=== PATIENT | female | born 1935 | race Caucasian/White ===

== ENCOUNTER → 2016-05-06 | Outpatient (CLI) | payer OTHER, MEDICARE ==
[~2016-05-06] MED LIST: ACET-1256 PO; ACET-1311 PO; ALBU0.08 INH; ALBU18002 INH; ALBU1AER9 INH; AMOX1TAB43 PO; AMOX875T PO; BISA10SU38 PR; CALC600T37 PO; CANA1TAB PO; CEPH500C2 PO; CHOL2000 PO; CLC100X PO; CLOB-85 TOP; CLOP1TAB15 PO; COEN1CAP7 PO; CPR500 PO; CRS/10 PO; DOCU-94 PO; DOCU100C31 PO; DULO60CA44 PO; DXM/4 PO; FERR325T5 PO; FLUT0.15 NAE; GABA1CAP PO; HMLI SC; HYDR-5688 PO; IMD/2 PO; INSDGIPEN SC; INSU100I SC; INSU100I2 SC; INSUINJ4 SQ; IPRASOL4 INH; LCTX PO; LSN10 PO; LSN5 PO; LYR50 PO; MELATAB2 PO; METO50TA7 PO; MRLP17 PO; MTR500 PO; OMEP20CA9 PO; ONDA8TAB12 PO; OXYC-57 PO; PANC6000 PO; PANT40TA PO; PIOG1TAB23 PO; POLY150C PO; PREG1CAP36 PO; PRT40 PO; PRVC/40 PO; SENN-61 PO; SNG10 PO; SNK PO; SYMIN160 INH; TIOT1AER2 INH; [UNRECOGNIZED DRUG - CODE] PO
[2016-05-06 14:15] LABS: URINE APPEARANCE CLEAR (CLEAR); URINE BILIRUBIN NEG (NEG); URINE COLOR YELLOW; URINE NITRITE NEG (NEG); UROBILINOGEN NEG (NEG)
[2016-05-06 14:34] LABS: MANUAL MICROSCOPIC REQUIRED? NO; REVIEW REQ? NO
== END | disposition home or self-care (01) ==
LOC: C.LABSPEC 12:44
PROVIDERS: ATTEND Obstetrics & Gynecology
DX: R39.89 Other symptoms and signs involving the genitourinary system (principal)

== ENCOUNTER → 2016-06-02 | Outpatient (CLI) | payer OTHER, MEDICARE ==
[~2016-06-02] MED LIST changes: +OPTIRAY 320 IV PRN
--- NOTE | 2016-06-02 12:35 | DIAGNOSTIC IMAGING REPORT ---
Abdominal CT angiogram ANGIO ABDOMEN COMBO CLINICAL HISTORY: Mesenteric arterial stenosis TECHNIQUE: Transaxial acquisition with multi axial reformatted images COMPARISON STUDY: 09/27/2015 FINDINGS: Lung bases remain clear. Considerable atherosclerotic change abdominal aorta with no evidence for aneurysm or significant stenotic change. Extensive postoperative changes involving the spine stable area kidneys enhance uniformly. Air within the biliary ductal system presumably postoperative. 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 There appears to be partial collateral reconstitution several centimeters from its origin with this appearance unchanged from the prior study. Collateral vasculature primarily in a perigastric distribution appear unchanged. The stents involving the origins. Mesenteric artery is again noted. It appears to be patent. There is a mild degree of post stent narrowing of this is not considered critical. Moderate atelectatic changes of the distal branches is present similar to the prior study. Bowel pattern remains nonobstructive. Splenic artery aneurysm thrombosis also unchanged. No significant or bulky adenopathy is appreciated. IMPRESSION: Stable CT of the abdomen. 2. 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 This is unchanged. 3. Proximal stent superior mesenteric artery is considered patent with a mild degree of post stent narrowing. This is similar as well 4. All remaining components of the study are unchanged with no significant new or interval finding. Electronically signed by: Lakhwinder Strange M.D. 06/02/2016 12:33 PM Dictated Date/Time: 06/02/2016 12:24 PM
== END | disposition home or self-care (01) ==
LOC: C.CTS 10:48
PROVIDERS: ATTEND Surgery Vascular Surgery
DX: I77.1 Stricture of artery (principal)

== ENCOUNTER → 2016-06-21 | Outpatient (CLI) | payer OTHER, MEDICARE ==
[~2016-06-21] MED LIST changes: -OPTIRAY 320 IV PRN
[2016-06-21 10:04] LABS: HEMATOCRIT 42.3 % (37-47); MEAN CORPUSCULAR HGB CONC 32.2 g/dl (32-36); MEAN PLATELET VOLUME 11.1 fL (7.4-10.4); PLATELET COUNT 272 K/uL (130-400); RED BLOOD COUNT 4.86 M/uL (4.2-5.4); WHITE BLOOD COUNT 8.94 K/uL (4.8-10.8)
[2016-06-21 11:57] LABS: ESTIMATED AVERAGE GLUCOSE 171 mg/dl; HA1C FLAG Normal (Normal)
[2016-06-21 11:58] LABS: RATIO 8.4 mcg/mg (0-30.0)
[2016-06-21 12:01] LABS: ALT/SGPT 39 U/L (12-78); BLOOD UREA NITROGEN 18 mg/dl (7-18); CALCIUM 9.8 mg/dl (8.5-10.1); CARBON DIOXIDE 28 mmol/L (21-32); CHLORIDE 102 mmol/L (98-107); CHOLESTEROL 232 mg/dl (0-200); CREATININE 0.91 mg/dl (0.60-1.20); GLUCOSE 107 mg/dl (70-99); POTASSIUM 4.6 mmol/L (3.5-5.1); SODIUM 135 mmol/L (136-145); TRIGLYCERIDES 225 mg/dl (0-150); VERY LOW DENSITY LIPOPROT CALC 45 mg/dl
[2016-06-21 12:10] LABS: ALB/GLOB RATIO 0.8 (0.9-2); ALKALINE PHOSPHATASE 103 U/L (45-117); AST/SGOT 27 U/L (15-37); CHOLESTEROL/HDL RATIO 5.2; HDL CHOLESTEROL 45 mg/dl; LDL CHOLESTEROL CALCULATED 142 mg/dl
== END | disposition home or self-care (01) ==
LOC: C.LABFOXMH 09:17
PROVIDERS: ATTEND Internal Medicine Endocrinology, Diabetes & Metabolism
DX: D50.9 Iron deficiency anemia, unspecified (principal); E11.9 Type 2 diabetes mellitus without complications

== ENCOUNTER → 2016-07-16 | Outpatient (CLI) | payer OTHER, MEDICARE ==
--- NOTE | 2016-07-16 16:28 | MAMMOGRAPHY REPORT ---
BILATERAL DIGITAL DIAGNOSTIC MAMMOGRAM TOMOSYNTHESIS WITH CAD AND TARGETED LEFT ULTRASOUND: 7 CLINICAL HISTORY: The patient reports a palpable left breast lump. She also reports intermittent ri ght breast pain. She reports that her sister from breast cancer. TECHNIQUE: Breast tomosynthesis in addition to standard 2D mammography was performed. Current study was also evaluated with a Computer Aided Detection (CAD) system. Bilateral CC and MLO 2-D and feliz synthesis images and spot magnification left CC and ML views were obtained. COMPARISON: Comparison is made to exam dated: 08/16/2013 mammogram - [facility]. BREAST COMPOSITION: There are scattered areas of fibroglandular density in both breasts. FINDINGS: A triangle marker carbone the site of the palpable lump in the left breast upper outer quad rant. At the site of the palpable lump there is an irregular mass which measures 2.3 x 1.9 cm. A f ew faint pleomorphic calcifications are seen within the mass. The remainder of both breasts demonstr ate no suspicious masses, calcifications, or areas of architectural distortion. Targeted ultrasound was performed of the area of the palpable lump pointed out by the patient, in th e left breast at 1:00, 4 cm from the nipple. At the site of the palpable lump there is an irregular hypoechoic mass which measures 1.9 x 1.8 x 2.0 cm. A few punctate echogenic foci are seen within t he mass, consistent with the calcifications seen mammographically. Internal vascularity is evident. The mass is suspicious for malignancy and ultrasound-guided core needle biopsy is recommended for further evaluation. Targeted ultrasound was performed of the left axilla, which shows morphologically normal left axilla ry lymph nodes. There is no evidence of left axillary adenopathy. Targeted ultrasound was performed of the area of intermittent right breast pain pointed out by the p atient, in the right breast at 9:00, centered at approximately 8 cm from the nipple. No suspicious masses or other suspicious sonographic abnormalities are evident. IMPRESSION: ACR BI-RADS CATEGORY 5: HIGHLY SUGGESTIVE OF MALIGNANCY, TARGETED ULTRASOUND ACR BI-RAD S CATEGORY 5: HIGHLY SUGGESTIVE OF MALIGNANCY 1. Irregular 2 cm solid mass in the left breast at 1:00 at the site of the palpable lump. The mass is highly suspicious and ultrasound-guided core needle biopsy is recommended for further evaluation . 2. No evidence of left axillary adenopathy. 3. No mammographic evidence of malignancy in the right breast. No suspicious mammographic or sonog raphic abnormality at the site of intermittent right breast pain. Recommend clinical follow-up. A phone call was made to the physician's office to confirm faxed results were received. The patient has been verbally notified of the results. The patient tentatively scheduled the biopsy before omayra ving the department. I told the patient that she can remain on Plavix for the biopsy, given the his tory of an SMA stent. Approximately 10% of breast cancers are not detected with mammography. A negative mammographic repor t should not delay biopsy if a clinically suggestive mass is present. Yudy Marshall M.D. ah/:07/16/2016 14:46:02 Blood Tester Fowl: Xin STEELE(Carl)(M), [facility] letter sent: Abnormal 4/5 BI-RADS Code: ACR BI-RADS Category 5: Highly Suggestive Of Malignancy Ultrasound BI-RADS: ACR BI-RA DS Category 5: Highly Suggestive Of Malignancy
== END | disposition home or self-care (01) ==
LOC: C.MAMM 13:42
PROVIDERS: ATTEND Nurse Practitioner Family
DX: N63 Unspecified lump in breast (principal); Z80.3 Family history of malignant neoplasm of breast

== ENCOUNTER → 2016-07-27 | Outpatient (CLI) | payer OTHER, MEDICARE ==
--- NOTE | 2016-07-27 11:07 | Discharge Instructions ---
Discharge Instructions Procedure Procedure Date: Jul 27, 2016. Reason for visit: Left Mass. Discharge Discharge Date: Jul 27, 2016. Discharge Diagnosis: post left breast ultrasound guided core biopsy Medications Restart Stopped Medication(s): May take Plavix later today Instructions Activity Recommendations: Additional Limitations (see below) Return to School/Work: no limitations Recommended Home Diet: No Limitations Provider Instructions: ACTIVITY RECOMMENDATIONS: * No lifting, pushing, pulling or exercising the affected side for three days. RETURN TO SCHOOL/WORK: * You may return to work/school after the procedure, but do not perform any strenuous activities for 24 to 48 hours. MEDICATIONS: * Tylenol (two 325 mg) every four to six hours if needed for mild pain (if not allergic to Tylenol). DIET: * Resume previous diet. SPECIAL CARE INSTRUCTIONS: * Keep biopsy site dry for 24 hours. May shower after 24 hours, but do not soak (bathe) incision. * May remove Tegaderm (plastic patch) tomorrow AFTER showering. * Leave the steri-strips on for one week. Allow the steri-strips to fall off by themselves. If not off after one week, you may remove them. You may place a Bandaid crosswise over the strips, if desired. * Apply ice 10 minutes on and 10 minutes off as needed. * Wear a bra at bedtime to sleep more comfortably for 2-3 days. * Your referring physician should have the results after approximately 5 to 7 business days. * Call for unusual bleeding, fever, drainage, etc or if you have any questions call [phone] during normal business hours or after hours call Dr Hay, . FOLLOW UP VISIT: Follow-up with Referring Physician as scheduled. Allergies Coded Allergies: Prochlorperazine (Verified Allergy, Severe, TONGUE SWELLS/"ALMOST ", ) Aspirin (Verified Allergy, Unknown, 11/10/15) NSAIDs (Verified Allergy, Unknown, TAKES ARTHROTEC AT HOME, 11/10/15) NUTS (Verified Allergy, Unknown, 11/10/15) Erythromycin (Verified Adverse Reaction, Intermediate, HIVES, 11/10/15) ABD PAIN/CRAMPS DIZZINESS Tramadol (Verified Adverse Reaction, Unknown, abd pain, 11/10/15) Teresa Betancourt Recommendations: Call your doctor if: * Temperature above 101 degrees * Pain not relieved by pain medicine ordered * There is increased drainage or redness from any incision * You have any unanswered questions or concerns. Your Doctors Instructions noted above were prepared by provider Matye Hay. Patient Signature Section: Patient Instructions Signature Page Ghulam Victoria Patient (or Guardian) Signature/Date: I have read and understand the instructions given to me by my caregivers. Caregiver/RN/Doctor Signature/Date: The above-named patient and/or guardian has received patient instructions on this date. + Original Patient Signature Page (only) stays with chart. Please make copy for patient.
--- NOTE | 2016-07-27 15:43 | MAMMOGRAPHY REPORT ---
UNILATERAL LEFT DIGITAL DIAGNOSTIC MAMMOGRAM TOMOSYNTHESIS: 07/27/2016 CLINICAL HISTORY: Status post ultrasound-guided core biopsy of a solid palpable mass in the 1:00 lef t breast. Please refer to the report from left breast ultrasound guided core biopsy performed at the same time for full detail. IMPRESSION: POST PROCEDURE IMAGING FOR MARKER PLACEMENT Please refer to the report from left breast ultrasound guided core biopsy performed at the same time for full detail. Approximately 10% of breast cancers are not detected with mammography. A negative mammographic repor t should not delay biopsy if a clinically suggestive mass is present. Mayte Hay M.D. ay/:07/27/2016 12:32:39 Java Technical Architect: Breana WETZEL)(Percy), [facility] BI-RADS Code: Post Procedure Imaging For Marker Placement
--- NOTE | 2016-07-27 15:43 | MAMMOGRAPHY REPORT ---
ULTRASOUND GUIDED BIOPSY LEFT BREAST: 07/27/2016 CLINICAL HISTORY: 80-year-old woman with a new palpable solid 2 cm mass in the 1:00 left breast pres ents for ultrasound-guided core needle biopsy for definitive characterization. COMPARISON: Comparison is made to exams dated: 07/16/2016 ultrasound, 07/16/2016 mammogram, and 2013 mammogram - [facility]. PATIENT CONSENT: The procedure, risks and benefits were discussed with the patient and informed writ ten consent was obtained. Specific risks to this procedure include: bleeding, infection, puncture of adjacent structure, nontarget biopsy, sampling error and medication reaction. PROCEDURE DESCRIPTION: A time out was performed and the left breast was agreed as the site of biopsy . The skin was prepped and draped in the usual sterile fashion. The solid angular 2 cm mass in the 1 :00 left breast was chosen as the target for biopsy. Subcutaneous and intraparenchymal 1% buffered l idocaine was administered as local anesthesia. A skin incision was made. Through the incision, 3 sa mples were taken with a 14 gauge Achieve biopsy device. A metallic marker was placed at the biopsy s ite. Hemostasis was achieved after manual compression. The patient tolerated the procedure well and there was no immediate complication. The samples were sent to the pathology department in an approp riately labeled container. Postprocedure left CC and ML tomosynthesis images were obtained. A new ribbon-shaped metallic biops y marker is seen within the biopsied mass in the 1:00 middle one third of the left breast. No signi ficant post biopsy hematoma is identified. IMPRESSION: ULTRASOUND GUIDED BIOPSY Status post ultrasound-guided core needle biopsy of an indeterminate solid palpable mass in the 1:00 left breast, with biopsy marker placed at the site. The patient will receive notification of the biopsy results from her referring physician. Mayte Hay M.D. ay/:07/27/2016 12:37:41 Environmental Services Aide: Breana WETZEL)(Percy), [facility]
== END ==
LOC: C.MAMM 09:55
PROVIDERS: ATTEND Internal Medicine
DX: N63 Unspecified lump in breast (principal); C50.912 Malignant neoplasm of unspecified site of left female breast

== ENCOUNTER → 2016-08-13 | Outpatient (CLI) | payer OTHER, MEDICARE ==
[~2016-08-13] MED LIST changes: -ALBU0.08 INH; -PRVC/40 PO
== END | disposition home or self-care (01) ==
LOC: C.LABFOXMH 09:04
PROVIDERS: ATTEND Internal Medicine
DX: E87.5 Hyperkalemia (principal)

== ENCOUNTER 2016-08-16 07:56 | Observation (INO) | payer OTHER, MEDICARE ==
[2016-08-11 09:12] VITALS: Ht 157.5 cm; Wt 77.7 kg
--- NOTE | 2016-08-11 10:07 | PAT Medication Instructions ---
Service Date Aug 11, 2016. Current Home Medication List Acetaminophen (Tylenol), 1,000 MG PO AMPM Albuterol (Proair Hfa), 2 PUFF INH QID PRN for Wheezing Albuterol Soln (Proventil 0.083% 2.5MG/3ML), 2.5 MG INH QID Budesonide/Formoterol Fumarate (Symbicort 160/4.5 Inhaler ), 2 PUFFS INH BID PRN for COPD Calcium (Calcium), 1 TAB PO BID Canagliflozin (Invokana), 100 MG PO QAM Clopidogrel (Plavix), 75 MG PO DAILY Coenzyme Q10 (Ubidecarenone) (Coq10), 200 MG PO DAILY Duloxetine Hcl (Cymbalta), 60 MG PO QAM Fluticasone Propionate (Nasal) (Flonase Allergy Relief), 2 SPRAYS CÉSAR DAILY Gabapentin (Neurontin), 100 MG PO BID Insulin Glargine (Lantus Solostar Pen), 40 UNIT SQ AMPM Insulin Lispro (Humalog), 10 UNITS SC TIDM Levothyroxine Sodium (Levo-T), 50 MCG PO QAM Lisinopril (Lisinopril), 10 MG PO DAILY Melatonin (Melatonin Maximum Strengt), 5 MG PO HS Metoprolol Succ (Toprol Xl) (Toprol-Xl), 50 MG PO QAM Montelukast Sod (Montelukast Sodium), 10 MG PO DAILY Omeprazole (Prilosec), 50 MG PO BID Pioglitazone Hcl (Pioglitazone Hcl), 30 MG PO QAM Pregabalin (Lyrica), 50 MG PO BID Rosuvastatin Calcium (Crestor), 1 TAB PO QPM Senna (Senokot), 1-2 TAB PO DAILY Medication Instructions For Your Scheduled Surgery Clopidogrel (Plavix), 75 MG PO DAILY (hold one week prior to surgery per surgeon instructions) - Hold the following medications starting today 08/11/16: Coenzyme Q10 (Ubidecarenone) (Coq10), 200 MG PO DAILY - Hold the following medications the morning of surgery: Senna (Senokot), 1-2 TAB PO DAILY Pioglitazone Hcl (Pioglitazone Hcl), 30 MG PO QAM Lisinopril (Lisinopril), 10 MG PO DAILY Insulin Lispro (Humalog), 10 UNITS SC TID Canagliflozin (Invokana), 100 MG PO QAM Calcium (Calcium), 1 TAB PO BID - Take the following medications the morning of surgery with a sip of water: Pregabalin (Lyrica), 50 MG PO BID Omeprazole (Prilosec), 50 MG PO BID Montelukast Sod (Montelukast Sodium), 10 MG PO DAILY Metoprolol Succ (Toprol Xl) (Toprol-Xl), 50 MG PO QAM Levothyroxine Sodium (Levo-T), 50 MCG PO QAM Gabapentin (Neurontin), 100 MG PO BID Fluticasone Propionate (Nasal) (Flonase Allergy Relief), 2 SPRAYS CÉSAR DAILY Duloxetine Hcl (Cymbalta), 60 MG PO QAM Budesonide/Formoterol Fumarate (Symbicort 160/4.5 Inhaler ), 2 PUFFS INH BID PRN for COPD Albuterol (Proair Hfa), 2 PUFF INH QID PRN for Wheezing (bring with you to hospital on day of surgery) Albuterol Soln (Proventil 0.083% 2.5MG/3ML), 2.5 MG INH QID Acetaminophen (Tylenol), 1,000 MG PO AMPM - Take the following medications as scheduled the night before surgery: Rosuvastatin Calcium (Crestor), 1 TAB PO QPM Pregabalin (Lyrica), 50 MG PO BID Omeprazole (Prilosec), 50 MG PO BID Melatonin (Melatonin Maximum Strengt), 5 MG PO HS Insulin Lispro (Humalog), 10 UNITS SC TIDM Gabapentin (Neurontin), 100 MG PO BID Calcium (Calcium), 1 TAB PO BID Budesonide/Formoterol Fumarate (Symbicort 160/4.5 Inhaler ), 2 PUFFS INH BID PRN for COPD Albuterol (Proair Hfa), 2 PUFF INH QID PRN for Wheezing Albuterol Soln (Proventil 0.083% 2.5MG/3ML), 2.5 MG INH QID Acetaminophen (Tylenol), 1,000 MG PO AMPM Insulin Glargine (Lantus Solostar Pen), 40 UNIT SQ AMPM - For Insulin Dependent Diabetic patients: Test blood sugar A.M. of surgery. - If blood sugar is greater than 150, take half of your Lantus dose (20 units) - If blood sugar is less than 150, do not take any: Lantus If you have any questions please call us at [phone] or [phone] ( Leela) or [phone]
[2016-08-11 11:17] LABS: BUN/CREATININE RATIO 22.4 (10-20); CALCIUM 9.7 mg/dl (8.5-10.1); CREATININE 1.1 mg/dl (0.60-1.20); POTASSIUM 5.7 mmol/L (3.5-5.1)
--- NOTE | 2016-08-12 13:44 | DIAGNOSTIC IMAGING REPORT ---
CHEST 2 VIEWS ROUTINE CLINICAL HISTORY: Preoperative chest COMPARISON STUDY: 03/03/2016 FINDINGS: The cardiac and mediastinal contours are normal. There is no evidence of focal pulmonary consolidation. There is no evidence of failure. No pleural effusions are visualized.[ There is a prominent right cardiophrenic angle fat pad. There are postsurgical changes of thoracolumbar spinal fusion IMPRESSION: No active disease in the chest. Electronically signed by: Jeb Dominguez M.D. 08/12/2016 1:42 PM Dictated Date/Time: 08/12/2016 1:41 PM
[2016-08-12 13:56] LABS: CALCIUM 9.8 mg/dl (8.5-10.1)
[2016-08-12 13:59] LABS: CREATININE 1.1 mg/dl (0.60-1.20); POTASSIUM 5.7 mmol/L (3.5-5.1)
[2016-08-12 14:16] LABS: BASO % 0.3 %; BASO ABS # 0.02 K/uL (0-0.2); COMPLETE YES; EOS % 2.3 %; HEMATOCRIT 41.7 % (37-47); IG% 0.4 %; LYMPH ABS # 2.21 K/uL (1.2-3.4); MEAN CELL VOLUME 93.3 fL (80-100); MEAN CORPUSCULAR HEMOGLOBIN 29.1 pg (25-34); MEAN CORPUSCULAR HGB CONC 31.2 g/dl (32-36); MEAN PLATELET VOLUME 10.6 fL (7.4-10.4); MONO % 7.3 %; NEUT % 61.7 %; PLATELET COUNT 330 K/uL (130-400); RED BLOOD COUNT 4.47 M/uL (4.2-5.4)
[~2016-08-16] VITALS: Ht 157.5 cm; Wt 77.7 kg
[~2016-08-16 07:56] MED LIST changes: -ACET-1311 PO; -ALBU18002 INH; -AMOX1TAB43 PO; -AMOX875T PO; -BISA10SU38 PR; +CEFAZOLIN 2000 MG/60 ML D5W IV SCH; -CEPH500C2 PO; -CLC100X PO; -CPR500 PO; -DOCU-94 PO; -DOCU100C31 PO; -DXM/4 PO; -FERR325T5 PO; -HYDR-5688 PO; -IMD/2 PO; -INSDGIPEN SC; -INSU100I SC; -INSU100I2 SC; +LACTATED RINGER'S 1000ML 1,000 ML IV SCH; -LCTX PO; -LSN10 PO; -MRLP17 PO; -MTR500 PO; -OMEP20CA9 PO; -ONDA8TAB12 PO; -OXYC-57 PO; -PANC6000 PO; -PANT40TA PO; -POLY150C PO; -PREG1CAP36 PO; -PRT40 PO; -SNK PO; -SYMIN160 INH; -TIOT1AER2 INH
[2016-08-16] MEDS ORDERED: THROMBIN FOR SOLN 20000 UNIT KIT ONE (08:36)
[2016-08-16] MEDS ORDERED: LIDOCAINE HCL 1% 20 ML VIAL ONE (08:36)
[2016-08-16] MEDS ORDERED: BUPIVACAINE 0.5 % 5 MG/1 ML MPF 30ML VIAL ONE (08:36)
[2016-08-16] MEDS ORDERED: ISOSULFAN BLUE 10 MG/ML VIAL 5 ML ONE (08:36)
[2016-08-16] MEDS ORDERED: CEFAZOLIN SOD 1 GM VIAL ONE (08:37)
[2016-08-16] MEDS ORDERED: HEPARIN SOD (PORCINE) 1000 UNIT/ML 10 ML VIAL ONE (08:37)
[2016-08-16] MEDS ORDERED: MIDAZOLAM HCL 1 MG/ML 2ML VIAL ONE (09:24)
[2016-08-16] MEDS ORDERED: PROPOFOL IV EMULSION 10 MG/ML 20 ML VIAL IV ONE (09:24)
[2016-08-16] MEDS ORDERED: LIDOCAINE HCL 2% 2 ML VIAL (20MG/ML) ONE (09:24)
[2016-08-16] MEDS ORDERED: FENTANYL CITRATE INJ 50 MCG/1 ML 2 ML VIAL ONE ×3 (09:25→12:34)
--- NOTE | 2016-08-16 09:53 | History & Physical Bridge Note ---
H&P Re-Evaluation Bridge Note: I have examined the patient, reviewed the History & Physical and in the interval since the performance of the History & Physical I have noted the following changes of clinical significance: No changes noted
--- NOTE | 2016-08-16 10:02 | DIAGNOSTIC IMAGING REPORT ---
LEFT BREAST LYMPHOSCINTIGRAPHY CLINICAL HISTORY: Left breast cancer. COMPARISON STUDY: Diagnostic mammogram August 16, 2016. PROCEDURE: The procedure, risks and benefits were discussed with the patient and informed consent was obtained. The procedure was performed by Dr. Ferrer following a timeout. Skin of the left breast was prepped. A total of 0.525 mCi of Lymphoseek was injected in 5 intradermal aliquots within a left periareolar distribution. No imaging was requested at this time. The patient tolerated the procedure well. IMPRESSION: Left breast lymphoscintigraphy. Electronically signed by: Chris Ferrer M.D. 08/16/2016 9:59 AM Dictated Date/Time: 08/16/2016 9:57 AM
[2016-08-16] MEDS ORDERED: PREG1CAP36 PO (10:09)
[2016-08-16] MEDS ORDERED: ONDANSETRON INJ 2 MG/ML 2 ML VIAL ONE (10:51)
[2016-08-16] MEDS ORDERED: ETOMIDATE 2 MG/ML 20 ML VIAL IV ONE (11:17)
[2016-08-16] MEDS ORDERED: METHYLENE BLUE 0.5% 10 ML VIAL ONE (11:18)
--- NOTE | 2016-08-16 12:24 | [facility] Post Operative Brief Note ---
Immediate Operative Summary Operative Date Aug 16, 2016. Pre-Operative Diagnosis Left Breast Cancer; Need for Long-term Intravenous Access Post-Operative Diagnosis Left Breast Cancer; Need for Long-term Intravenous Access Procedure(s) Performed Procedure #1--Left Breast Lumpectomy with Needle Localization and Left [place] Lymph Node Biopsy Procedure #2-- Insertion of Infusaport Right Cephalic Surgeon Dr. Arambula Oracle Software Engineer Surgeon(s) ROSA Galo Estimated Blood Loss 20 ml Findings SLN negative placed port via Rt cephalic vein Specimens Frozen Section #1--[place] lymph node #1 Left Breast--sent to pathology at 1104 A. Left Breast Lumpectomy (needle=lateral, skin=anterior, short silk=medial, double silk=superior) B. Additional Superior Tissue Left Breast (methylene blue=new margin, long silk=lateral, short silk=medial) C. Additional Inferior Tissue Left Breast (methylene blue= new margin, long silk=lateral, short silk= medial) all specimens A-C sent fresh to lab at 1130 Drains none Anesthesia gen Complication(s) None Disposition Recovery Room / PACU
[2016-08-16] MEDS ORDERED: NALOXONE HCL 0.4 MG/1 ML VIAL/CARP IV PRN (12:30)
[2016-08-16] MEDS ORDERED: ALBUTEROL HFA 8 GM INHALER INH PRN (12:30)
[2016-08-16] MEDS ORDERED: MoRPHine SULFATE 4 MG/ML 1 ML CARP\\VIAL IV PRN (12:30)
[2016-08-16] MEDS ORDERED: ONDANSETRON INJ 2 MG/ML 2 ML VIAL IV PRN ×2 (12:30)
[2016-08-16] MEDS ORDERED: FENTANYL CITRATE INJ 50 MCG/1 ML 2 ML VIAL IV PRN (12:30)
[2016-08-16] MEDS ORDERED: HYDROCODONE/ACETAMOPHEN 5/325MG TAB PO PRN (12:30)
[2016-08-16] MEDS ORDERED: ATROPINE SULFATE 0.1 MG/ML 5ML SYR IV PRN (12:30)
[2016-08-16] MEDS ORDERED: LABETALOL HCL IV 5 MG/ML 20ML IV PRN (12:30)
[2016-08-16] MEDS ORDERED: EpHEDrine SULFATE INJ 50 MG/ML AMP IV PRN (12:30)
[2016-08-16] MEDS ORDERED: BUDESONIDE/FORMOTEROL FUMARATE 160/4.5 60 PUFFS/INHALER INH PRN (12:30)
[2016-08-16] MEDS ORDERED: IV FLUIDS COMPLETED PRN (12:45)
[2016-08-16] MEDS ORDERED: HYDR-5688 PO (12:53)
[2016-08-16] MEDS ORDERED: CEPH500C2 PO (12:53)
--- NOTE | 2016-08-16 12:55 | Discharge Instructions ---
Discharge Instructions Date of Service Aug 16, 2016. Admission Reason for Admission: Lt Br Ca,Type 2 Diabetes Mellitus/Hs Loc W/Lymph Discharge Discharge Diagnosis / Problem: Lt breast cancer Discharge Goals Goal(s): Decrease discomfort, Improve function, Improve disease control Activity Recommendations Activity Limitations: as noted below Lifting Limitations: no more than 10 pounds Exercise/Sports Limitations: until after follow-up appointment May Resume Sexual Activity: when tolerated Shower/Bathe: tomorrow Driving or Machine Use: may drive in 1 week SPECIAL CARE INSTRUCTIONS: * Cover incisions and change daily for comfort/drainage. * Leave steri strips in place * May use ibuprofen for pain as tolerated. * Expect some swelling and bruising. Call your doctor if: * Temperature above 101 degrees * Pain not relieved by pain medicine ordered * There is increased drainage or redness from any incision * You have any unanswered questions or concerns [phone]. FOLLOW UP VISIT: If not already scheduled, please call the office for a follow-up visit. for next week- some suture removal OFFICE PHONE NUMBER: Dr. Arambula Office . Current Hospital Diet Patient's current hospital diet: Diabetes Type 2 Diet Discharge Diet Recommended Diet: Diabetes Type 2 Diet Procedures Procedures Performed: Procedure #1--Left Breast Lumpectomy with Needle Localization and Left [place] Lymph Node Biopsy Procedure #2-- Insertion of Infusaport Right Cephalic Pending Studies Studies pending at discharge: no Laboratory Results Hemoglobin A1c Test 06/21/16 06:04 Range/Units Estimated Average Glucose 171 mg/dl Hemoglobin A1c 7.6 H 4.5-5.6 % Lipid Panel Test 06/21/16 06:04 Range/Units Triglycerides Level 225 H 0-150 mg/dl Cholesterol Level 232 H 0-200 mg/dl HDL Cholesterol 45 mg/dl Cholesterol/HDL Ratio 5.2 LDL Cholesterol, Calculated 142 mg/dl Medical Emergencies . Who to Call and When: Medical Emergencies: If at any time you feel your situation is an emergency, please call 911 immediately. . Non-Emergent Contact Non-Emergency issues call your: Primary Care Provider, Surgeon . "Provider Documentation" section prepared by Hal Arambula. . VTE Core Measure Inpt VTE Proph given/why not?: SCD's
[2016-08-16] MEDS ORDERED: HYDROmorphone INJ 1 MG/ML SYR ONE (13:01)
[2016-08-16] MEDS ORDERED: HYDROmorphone INJ 1 MG/ML SYR IV PRN (13:15)
--- NOTE | 2016-08-16 13:17 | MAMMOGRAPHY REPORT ---
NEEDLE LOCALIZATION LEFT BREAST: 08/16/2016 CLINICAL HISTORY: Recently biopsy-proven left breast cancer. Patient presents for preoperative need le and wire localization prior to surgical excision. COMPARISON: Comparison is made to exams dated: 07/16/2016 ultrasound, 07/27/2016 mammogram, 07/16/2016 mammogram, and 08/16/2013 mammogram - [facility]. PATIENT CONSENT: The risks of the procedure were explained to the patient and informed consent was o btained. The patient denied eating or drinking anything this morning that would preclude anesthesia . She denied allergy to lidocaine. Previous ultrasound guided core needle biopsy images dated 07/27/2016, and postprocedure mammograms were reviewed. The left 1:00 breast mass with internal ribbon-shaped biopsy marker is the intended target for preoperative localization. Repeat targeted ultrasound was performed in the 1:00 left helga ast, and the lobulated and angular hypoechoic solid mass with internal biopsy marker is again identi fied. This is amenable to ultrasound-guided preoperative localization. The skin of the left breast was cleansed with Betadine. 1% buffered lidocaine without epinephrine was administered as local an esthesia. A 5 cm Espinosa II needle and wire combination was inserted through the mass using ultraso und guidance. The wire was locked in place with the hub of the needle at the level of the biopsy ma rker clip. Post localization 2-D mammograms were obtained, which demonstrate the localizing needle and wire tra versing the mammographic mass in question, adjacent to the biopsy marker clip. The patient tolerate d the procedure well and there was no immediate complication. She was sent to the operating room in satisfactory condition. The procedure including: needle length and approach were discussed with e operating surgeon prior to surgery. The specimen radiograph demonstrates the localizing needle and wire, and the mass with internal ribb on shaped metallic biopsy marker clip. These findings are compatible with successful preoperative l ocalization and subsequent surgical excision. IMPRESSION: NEEDLE LOCALIZATION Status post successful ultrasound-guided preoperative needle and wire localization of biopsy-proven cancer in the 1:00 left breast. The imaged specimen includes the intended abnormalities. The patient will receive notification of the final pathology results from her referring physician. Mayte Hay M.D. ay/:08/16/2016 11:27:26 High Heel Builder: Abhishek WETZEL)(Percy), [facility]
--- NOTE | 2016-08-16 13:18 | MAMMOGRAPHY REPORT ---
UNILATERAL LEFT DIGITAL DIAGNOSTIC MAMMOGRAM: 08/16/2016 CLINICAL HISTORY: Status post ultrasound-guided needle and wire localization in the 1:00 left breast . Please refer to the report from the left breast ultrasound-guided localization performed at the same time for full detail. IMPRESSION: Please refer to the report from the left breast ultrasound-guided localization performed at the same time for full detail. Approximately 10% of breast cancers are not detected with mammography. A negative mammographic repor t should not delay biopsy if a clinically suggestive mass is present. Mayte Hay M.D. ay/:08/16/2016 11:28:17 Radioisotope Technician: Abhishek STEELE(R)(M), [facility] BI-RADS Code: n/a
--- NOTE | 2016-08-16 13:26 | Anesthesiology Progress Note ---
Anesthesia Post Op Note Date & Time Aug 16, 2016 at 13:25 Vital Signs Pain Intensity: 5.0 Vital Signs Past 12 Hours Date Time Temp Pulse Resp B/P Pulse Ox O2 Delivery O2 Flow Rate FiO2 08/16/16 13:10 87 16 112/53 96 Nasal Cannula 3 08/16/16 13:00 85 16 124/55 96 Nasal Cannula 3 08/16/16 12:50 84 16 143/52 94 Nasal Cannula 3 08/16/16 12:40 84 16 148/62 97 Mask 10 08/16/16 12:30 83 16 171/61 98 Mask 10 08/16/16 12:20 36.2 80 16 179/97 98 Mask 10 Notes Mental Status: alert / awake / arousable, participated in evaluation Pt Amnestic to Procedure: Yes Nausea / Vomiting: adequately controlled Pain: adequately controlled Airway Patency, RR, SpO2: stable & adequate BP & HR: stable & adequate Hydration State: stable & adequate Anesthetic Complications: no major complications apparent
--- NOTE | 2016-08-16 13:42 | DIAGNOSTIC IMAGING REPORT ---
CHEST ONE VIEW PORTABLE CLINICAL HISTORY: Port placement. COMPARISON STUDY: Chest radiograph August 12, 2016. FINDINGS: There has been interval placement of right subclavian [id number]. Catheter tip projects over the distal SVC. There is no pneumothorax. Spinous hardware is partially imaged. Cardiac size is normal. There is no evidence of pulmonary edema. No consolidation is present. IMPRESSION: No pneumothorax following placement of a right subclavian [id number]. Electronically signed by: Chris Ferrer M.D. 08/16/2016 1:40 PM Dictated Date/Time: 08/16/2016 1:39 PM
[2016-08-16 13:55] VITALS: BP 118/74; PULSE 78; TEMP 36.8; O2SAT 92
--- NOTE | 2016-08-16 13:59 | OPERATIVE REPORT ---
DATE OF OPERATION: 08/16/2016 NAME OF OPERATION: Left partial mastectomy with sentinel lymph node biopsy and port placement. STAFF SURGEON: Dr. Arambula. BROKERAGE OFFICE MANAGER: Cornelio Taveras PA-C ANESTHESIA: General. DESCRIPTION OF PROCEDURE: The patient was brought in the operating room and placed on the operating table in supine position. Her chest was prepped and draped bilaterally. Initially the left side was approached. She had a needle placed laterally at the breast center and then had injection performed in nuclear medicine. Using the NeoProbe, we were able to isolate the activity in the left axilla. A transverse incision was made using 0.5% plain Marcaine for an anesthetic to the skin, carrying dissection deeply down into the axilla, identifying the sentinel node, sending it for frozen section. It was negative. During the frozen section, lumpectomy was performed in the left breast by excising an ellipse of skin medial to the needle including the needle, which was lateral, skin was anterior. The tissue was dissected down around the needle to the chest wall and then the specimen was marked with a short silk suture medial, double silk suture superior. It was placed into the Faxitron, the mass was in the center of the specimen. I took additional superior and inferior tissue with the new margin marked with methylene blue, the medial tissue marked with a short silk suture and the lateral tissue marked with a long silk suture. Clips were placed at the site of the mass near the chest wall, then the deep tissue was reapproximated using 2-0 plain catgut suture, then the skin reapproximated using subcuticular 4-0 Monocryl and Steri-Strips. Axilla was closed with 2-0 plain catgut suture for the deep tissue and then 4-0 nylon for the skin. At this point, with new instruments and clean drape, the incision was made in the right upper chest wall, carrying dissection down identifying the right cephalic vein, it was ligated distally using 2-0 silk suture and then opened. A catheter passed under fluoroscopy into the distal superior vena cava, aspirated and flushed with heparinized solution and secured using 2-0 silk suture and 2-0 chromic catgut suture. A pocket was fashioned in the subcutaneous tissue and then the port attached to the catheter, placed into the pocket. The port was aspirated and flushed with heparinized solution. The port was attached to the chest wall using 3-0 Prolene suture. Then, the site was irrigated with antibiotic solution. Then the subcutaneous tissue reapproximated using 2-0 chromic catgut suture, then the skin reapproximated using 4-0 nylon suture. Dressings were applied and patient transferred to recovery room in stable condition. I attest to the content of the Intraoperative Record and any orders documented therein. Any exceptio ns are noted below.
[2016-08-16] MEDS: MoRPHine SULFATE 2 MG/ML CARP IV PRN ×2 (14:24→17:53)
[2016-08-16] MEDS: LACTATED RINGER'S 1000ML 1,000 ML IV SCH (14:24)
[2016-08-16 14:30] VITALS: BP 145/73; PULSE 86
[2016-08-16 15:14] VITALS: BP 100/50; PULSE 77; TEMP 36.7; O2SAT 90
[2016-08-16] MEDS: HYDROCODONE/ACETAMOPHEN 5/325MG TAB PO PRN ×2 (15:37→20:40)
[2016-08-16] MEDS ORDERED: DEXTROSE 50% 50 ML SYR IV PRN (15:45)
[2016-08-16] MEDS ORDERED: GLUCOSE 10 TABS/TUBE PO PRN (15:45)
[2016-08-16] MEDS ORDERED: GLUCAGON FOR INJ 1 MG VIAL SQ PRN (15:45)
[2016-08-16] MEDS ORDERED: GLUCOSE 40% GEL 15 GM TUBE PO PRN (15:45)
[2016-08-16 16:03] VITALS: BP 151/70; PULSE 92
[2016-08-16] MEDS ORDERED: POLYETHYLENE (MIRALAX) 17 GM PACK PO ONE (16:37)
[2016-08-16 16:56] LABS: BASO % 0.1 %; BASO ABS # 0.01 K/uL (0-0.2); COMPLETE YES; EOS % 1.2 %; HEMATOCRIT 37.5 % (37-47); IG% 0.3 %; LYMPH % 22.8 %; LYMPH ABS # 2.56 K/uL (1.2-3.4); MEAN CELL VOLUME 93.8 fL (80-100); MEAN CORPUSCULAR HEMOGLOBIN 29.3 pg (25-34); MEAN CORPUSCULAR HGB CONC 31.2 g/dl (32-36); MEAN PLATELET VOLUME 10.4 fL (7.4-10.4); MONO % 4.9 %; NEUT % 70.7 %; PLATELET COUNT 273 K/uL (130-400); WHITE BLOOD COUNT 11.21 K/uL (4.8-10.8)
[2016-08-16] MEDS: INSULIN ASPART 100 UNITS/ML 3 ML PEN SC SCH ×2 (17:15→21:04)
[2016-08-16 17:20] LABS: BUN/CREATININE RATIO 12.2 (10-20); CALCIUM 8.7 mg/dl (8.5-10.1); CREATININE 1.3 mg/dl (0.60-1.20); POTASSIUM 4.8 mmol/L (3.5-5.1)
[2016-08-16] MEDS: PANCREAZE (LIPASE 16,800U) CAP PO SCH (17:46)
[2016-08-16] MEDS: CEFAZOLIN IV 1,000 MG in DEXTROSE 5% 50ML 50 ML IV SCH (17:58)
[2016-08-16] MEDS ORDERED: HydrALAZINE HCL 20 MG/ML VIAL IV. PRN (18:00)
[2016-08-16 19:20] VITALS: BP 127/47; PULSE 86; TEMP 36.5; O2SAT 93
--- NOTE | 2016-08-16 19:23 | Medical Consult ---
Consultation Date of Consultation: Aug 16, 2016. Attending Physician: Hal Arambula M.D. Reason for Consultation: Medical management History of Present Illness This is a 80 y/o female with a history of anxiety, left sided breast cancer, COPD, DM II w/neuropathy, hyperlipidemia, GERD, fibromyalgia, hypertension, and hypothyroidism who presents s/p left lumpectomy and Infusaport insertion with Dr. Arambula on 08/16 for medical management. Patient reports some pain at the surgical sites, primarily at the site of the left lumpectomy. She states that the right-sided port does not bother her too much. She was able to eat without any difficulties and denies nausea or vomiting. She has not yet urinated. The patient does report passing some small amount of gas. She denies any bowel movements. Besides the pain, she reports feeling well. The patient denies fevers, chills, sweats, chest pain, palpitations, claudication, cough, wheezing , shortness of breath, nausea, vomiting, abdominal pain, dysuria, hematuria, urinary retention, paralysis, weakness, numbness and tingling. Past Medical/Surgical History Medical Problems: Breast cancer, left side s/p left lumpectomy Anxiety COPD Diabetes mellitus type 2 with neuropathy Hyperlipidemia Hypertension GERD Fibromyalgia Hypothyroidism Family History Breast cancer Diabetes mellitus Heart disease Lung cancer Social History Smoking Status: Former Smoker Smokeless Tobacco Use: No Alcohol Use: none Drug Use: none Marital Status: Housing Status: lives alone Occupation Status: retired Allergies Coded Allergies: Prochlorperazine (Verified Allergy, Severe, TONGUE SWELLS/"ALMOST ", ) Aspirin (Verified Allergy, Mild, SEVERE UPSET STOMACH, 08/16/16) NUTS (Verified Allergy, Mild, SORE TONGUE/MOUTH, 08/16/16) NSAIDs (Verified Allergy, Unknown, GI UPSET , 08/16/16) Erythromycin (Verified Adverse Reaction, Intermediate, HIVES, 08/11/16) ABD PAIN/CRAMPS DIZZINESS Tramadol (Verified Adverse Reaction, Unknown, abd pain, 08/11/16) Current Inpatient Medications Current Inpatient Medications Medications (Trade) Dose Ordered Sig/Mark Route Start Time Stop Time Status Last Admin Dose Admin Lactated Ringer's (Lr 1000ml) 1,000 ml @ 15 mls/hr Q24H IV 08/16/16 06:00 08/17/16 05:59 08/16/16 09:35 15 MLS/HR Albuterol (Ventolin Hfa Inhaler) 2 puffs QID PRN INH 08/16/16 12:30 09/15/16 12:29 Budesonide/ Formoterol Fumarate (Symbicort 160/ 4.5 Inh) 2 puffs BID PRN INH 08/16/16 12:30 09/15/16 12:29 Levothyroxine Sodium (Synthroid Tab) 50 mcg DAILYBB PO 08/17/16 06:00 09/16/16 05:59 Lisinopril (Zestril Tab) 10 mg DAILY PO 08/17/16 09:00 09/16/16 08:59 Future Hold Metoprolol Succinate 50 mg 50 mg QAM PO 08/17/16 09:00 09/16/16 08:59 Lactated Ringer's 1,000 ml @ 50 mls/hr Q20H IV 08/16/16 12:24 09/15/16 12:23 08/16/16 14:24 50 MLS/HR Cefazolin Sodium/ Dextrose (Ancef Iv/D5 50ml) 55 ml @ 100 mls/hr Q8H IV 08/16/16 18:00 08/26/16 13:59 08/16/16 17:58 100 MLS/HR Acetaminophen/ Hydrocodone Bitart ([place] 5/325 Tab) 1 tab Q4 PRN PO 08/16/16 12:30 08/30/16 12:29 Acetaminophen/ Hydrocodone Bitart ([place] 5/325 Tab) 2 tab Q4 PRN PO 08/16/16 12:30 08/30/16 12:29 08/16/16 15:37 2 TAB Morphine Sulfate (MoRPHine SULFATE INJ) 2 mg Q4H PRN IV 08/16/16 12:30 08/30/16 12:29 08/16/16 17:53 2 MG Morphine Sulfate (MoRPHine SULFATE INJ) 4 mg Q4H PRN IV 08/16/16 12:30 08/30/16 12:29 Ondansetron HCl (Zofran Inj) 4 mg Q6H PRN IV 08/16/16 12:30 09/15/16 12:29 Senna/Docusate Sodium (Senokot S Tab) 1 tab BID PO 08/16/16 21:00 09/15/16 20:59 Miscellaneous (Iv Fluids Completed) 1 ea PRN PRN N/A 08/16/16 12:45 08/16/17 12:44 Duloxetine HCl (Cymbalta Cap) 60 mg QAM PO 08/17/16 09:00 09/16/16 08:59 Montelukast Sodium (Singulair Tab) 10 mg DAILY PO 08/17/16 09:00 09/16/16 08:59 Pregabalin (Lyrica Cap) 25 mg BID PO 08/16/16 21:00 09/15/16 20:59 Senna (Senokot Tab) 8.6 mg DAILY PO 08/17/16 09:00 09/16/16 08:59 Pantoprazole Sodium (Protonix Tab) 40 mg BID PO 08/16/16 21:00 09/15/16 20:59 Amylase/Lipase/ Protease (Pancreaze 37975 Unit) 2 cap TIDM PO 08/16/16 17:45 09/15/16 17:44 08/16/16 17:46 2 CAP Rosuvastatin Calcium (Crestor Tab) 10 mg QPM PO 08/16/16 21:00 09/15/16 20:59 Glucose (Glucose 40% Gel) 15-30 GRAMS 15 GRAMS... UD PRN PO 08/16/16 15:45 09/15/16 15:44 Glucose (Glucose Chew Tab) 4-8 Tablets 4 Tabl... UD PRN PO 08/16/16 15:45 09/15/16 15:44 Dextrose (Dextrose 50% 50ML Syringe) 25-50ML OF 50% DW IV FOR... UD PRN IV 08/16/16 15:45 09/15/16 15:44 Glucagon (Glucagon Inj) 1 mg UD PRN SQ 08/16/16 15:45 09/15/16 15:44 Insulin Glargine (Lantus Solostar Pen) 32 unit BID SC 08/16/16 21:00 09/15/16 20:59 Insulin Aspart (novoLOG ASPART) SLIDING SCALE G... ACHS SC 08/16/16 17:15 09/15/16 17:14 Polyethylene (Miralax Powder Packet) 17 gm DAILY PO 08/17/16 09:00 09/16/16 08:59 Hydralazine HCl (HydrALAZINE INJ) 10 mg Q6H PRN IV. 08/16/16 18:00 09/15/16 17:59 Review of Systems See HPI for pertinent positives and negatives. All other systems reviewed and negative. Physical Exam Date Time Temp Pulse Resp B/P Pulse Ox O2 Delivery O2 Flow Rate FiO2 08/16/16 16:03 92 151/70 08/16/16 15:30 Nasal Cannula 3.0 08/16/16 15:14 36.7 77 16 100/50 90 Room Air 08/16/16 14:30 86 16 145/73 08/16/16 13:55 Nasal Cannula 3.0 08/16/16 13:55 Nasal Cannula 3.0 08/16/16 13:55 36.8 78 16 118/74 92 Nasal Cannula 3.0 08/16/16 13:40 36.4 83 16 124/53 94 Nasal Cannula 3 08/16/16 13:30 36.4 88 16 131/47 94 Nasal Cannula 3 08/16/16 13:20 36.4 89 16 125/59 94 Nasal Cannula 3 08/16/16 13:10 87 16 112/53 96 Nasal Cannula 3 08/16/16 13:00 85 16 124/55 96 Nasal Cannula 3 08/16/16 12:50 84 16 143/52 94 Nasal Cannula 3 08/16/16 12:40 84 16 148/62 97 Mask 10 08/16/16 12:30 83 16 171/61 98 Mask 10 08/16/16 12:20 36.2 80 16 179/97 98 Mask 10 General Appearance: WD/WN, no apparent distress, + obese Head: normocephalic, atraumatic Eyes: normal inspection, PERRL, EOMI ENT: normal ENT inspection, hearing grossly normal, pharynx normal Neck: supple, no JVD, trachea midline Respiratory/Chest: normal breath sounds, no respiratory distress, + crackles ( right base) Cardiovascular: regular rate, rhythm, no gallop, + systolic murmur Abdomen/GI: normal bowel sounds, non tender, soft Extremities/Musculoskelatal: normal inspection, no calf tenderness, no pedal edema Neurologic/Psych: alert, normal mood/affect, oriented x 3 Skin: normal color, warm/dry, no rash Laboratory Results Last 24 Hours Test 08/16/16 09:39 08/16/16 09:45 08/16/16 12:25 08/16/16 16:45 Potassium Level 4.7 mmol/L 4.8 mmol/L Bedside Glucose 125 mg/dl 111 mg/dl White Blood Count 11.21 K/uL Red Blood Count 4.00 M/uL Hemoglobin 11.7 g/dL Hematocrit 37.5 % Mean Corpuscular Volume 93.8 fL Mean Corpuscular Hemoglobin 29.3 pg Mean Corpuscular Hemoglobin Concent 31.2 g/dl Platelet Count 273 K/uL Mean Platelet Volume 10.4 fL Neutrophils (%) (Auto) 70.7 % Lymphocytes (%) (Auto) 22.8 % Monocytes (%) (Auto) 4.9 % Eosinophils (%) (Auto) 1.2 % Basophils (%) (Auto) 0.1 % Neutrophils # (Auto) 7.92 K/uL Lymphocytes # (Auto) 2.56 K/uL Monocytes # (Auto) 0.55 K/uL Eosinophils # (Auto) 0.14 K/uL Basophils # (Auto) 0.01 K/uL RDW Standard Deviation 56.1 fL RDW Coefficient of Variation 16.2 % Immature Granulocyte % (Auto) 0.3 % Immature Granulocyte # (Auto) 0.03 K/uL Sodium Level 139 mmol/L Chloride Level 106 mmol/L Carbon Dioxide Level 26 mmol/L Anion Gap 7.0 mmol/L Blood Urea Nitrogen 16 mg/dl Creatinine 1.30 mg/dl Est Creatinine Clear Calc Drug Dose 33.3 ml/min Estimated GFR () 44.9 Estimated GFR (Non- 38.7 BUN/Creatinine Ratio 12.2 Random Glucose 167 mg/dl Calcium Level 8.7 mg/dl Test 08/16/16 17:20 Bedside Glucose 153 mg/dl Assessment & Plan 80 y/o female with a history of anxiety, left sided breast cancer, COPD, DM II w /neuropathy, hyperlipidemia, GERD, fibromyalgia, hypertension, and hypothyroidism who presents s/p left lumpectomy and Infusaport insertion with Dr. Armabula on 08/16 for medical management. -Pain management, DVT prophylaxis as per primary team -POD #0 -Tolerating diet, passing gas Diabetes mellitus type 2 w/neuropathy--last hemoglobin A1c checked on 2016 was 7.6 -BSG 111 before lunch, decreased appetite following surgery. Decrease Lantus to 80% home dose. Lantus 32 units SC BID -Hold Invokana and Actos -Insulin sliding scale -Check BSGs q ac and qhs COPD--stable -Continue albuterol inhalers and Symbicort 2 puffs inh qd HTN--stable -Continue metoprolol succinate 50 mg PO qd -Hold lisinopril for now until renal unction checked/stable -Cover with hydralazine 10 mg IV q6h prn SBP >180 HLD -Continue rosuvastatin 10 mg PO qd Fibromyalgia -Continue Lyrica 25 mg PO BID Hypothyroidism -Continue Synthroid 50 g PO qd Thank you for this consultation. We will continue to follow. Attending Consult Note & Attestation: Pt seen/examined, chart reviewed, and care plan d/w ROSA Garcia. I agree w/ the troncoso components of her consult documentation. 80yo female with T2DM, HTN, CKD stage 3, COPD. Underwent left sided lumpectomy for breast ca and a-port placement. Post-op only c/o chest wall pain from the surgery today. Denied sob, substernal cp. DID c/o constipation. PMH, PSH, allergies, meds, sochx, famhx, ros - reviewed vitals stable, afebrile fsbs <150 gen - nad neck - no JVD heart - RRR, s1, s2, 2/6 holosystolic murmur RUSB lungs - CTA b/l, no wheeze abd - soft, NT ext - no edema A/P: 1. s/p left breast lumpectomy 2. a port placement 3. T2DM - agree with reducing dose of lantus; novolog for meal coverage 4. HTN - agree w/ holding WILL; BMP in am 5. murmur - due to aortic stenosis based on old echo - no signs of CHF 6. constipation - add miralax daily Omid Grande MD
[2016-08-16] MEDS: PREGABALIN 25MG CAP PO SCH (20:40)
[2016-08-16] MEDS: PANTOprazole SOD 40 MG TAB PO SCH (20:41)
[2016-08-16] MEDS: DOCUSATE SODIUM/SENNA 50/8.6MG TAB PO SCH (20:43)
[2016-08-16] MEDS ORDERED: ROSUVASTATIN CALCIUM 10 MG TAB PO SCH (21:00)
[2016-08-16] MEDS: INSULIN GLARGINE SOLOSTAR 100 UNITS/ML 3 ML PEN SC SCH (21:05)
[2016-08-16 23:25] VITALS: BP 151/59; PULSE 85; TEMP 36.6; O2SAT 94
[2016-08-17] MEDS: HYDROCODONE/ACETAMOPHEN 5/325MG TAB PO PRN ×3 (01:27→11:22)
[2016-08-17] MEDS: LACTATED RINGER'S 1000ML 1,000 ML IV SCH (01:35)
[2016-08-17] MEDS: CEFAZOLIN IV 1,000 MG in DEXTROSE 5% 50ML 50 ML IV SCH ×2 (01:35→09:51)
[2016-08-17 03:25] VITALS: BP 126/57; PULSE 90; TEMP 36.8; O2SAT 92
[2016-08-17] MEDS: MoRPHine SULFATE 2 MG/ML CARP IV PRN (04:50)
[2016-08-17] MEDS ORDERED: LEVOTHYROXINE 50 MCG TAB PO SCH (06:00)
--- NOTE | 2016-08-17 06:27 | DISCHARGE SUMMARY ---
PRINCIPAL DIAGNOSIS: Left breast cancer. PROCEDURES: The patient underwent left breast lumpectomy with sentinel lymph node biopsy and port placement. HISTORY OF PRESENT ILLNESS: The patient is an 80-year-old female, found on mammography and exam with a left breast mass. On pathology and biopsy, shown to be a left breast cancer. HOSPITAL COURSE: The patient was brought into the hospital on 08/16/2016. She had undergone needle localization of the breast center and then breast injection in radiology and then brought to the operating room where she underwent left sentinel lymph node biopsy which was negative on frozen section and left partial mastectomy which she tolerated very well. She then underwent port placement at the same operation. The patient tolerated the procedure well and has done well overnight and is felt stable for discharge back to [facility] today.
[2016-08-17 06:51] LABS: BASO % 0.1 %; BASO ABS # 0.01 K/uL (0-0.2); COMPLETE YES; EOS % 2.1 %; HEMATOCRIT 37.2 % (37-47); IG% 0.4 %; LYMPH % 25.7 %; LYMPH ABS # 2.19 K/uL (1.2-3.4); MEAN CELL VOLUME 94.2 fL (80-100); MEAN CORPUSCULAR HEMOGLOBIN 28.9 pg (25-34); MEAN CORPUSCULAR HGB CONC 30.6 g/dl (32-36); MEAN PLATELET VOLUME 10.5 fL (7.4-10.4); MONO % 4.8 %; NEUT % 66.9 %; PLATELET COUNT 265 K/uL (130-400); RED BLOOD COUNT 3.95 M/uL (4.2-5.4); WHITE BLOOD COUNT 8.53 K/uL (4.8-10.8)
[2016-08-17 07:10] VITALS: BP 148/56; PULSE 90; TEMP 36.8; O2SAT 91
[2016-08-17] MEDS ORDERED: BUDESONIDE/FORMOTEROL FUMARATE 160/4.5 60 PUFFS/INHALER INH PRN (07:45)
[2016-08-17] MEDS ORDERED: ALBUTEROL HFA 8 GM INHALER INH PRN (07:45)
[2016-08-17 08:04] LABS: CREATININE 0.86 mg/dl (0.60-1.20); POTASSIUM 4.9 mmol/L (3.5-5.1)
[2016-08-17] MEDS: INSULIN ASPART 100 UNITS/ML 3 ML PEN SC SCH (08:39)
[2016-08-17] MEDS: DOCUSATE SODIUM/SENNA 50/8.6MG TAB PO SCH (08:43)
[2016-08-17] MEDS: INSULIN GLARGINE SOLOSTAR 100 UNITS/ML 3 ML PEN SC SCH (08:43)
[2016-08-17] MEDS: PANCREAZE (LIPASE 16,800U) CAP PO SCH (08:44)
[2016-08-17] MEDS: PANTOprazole SOD 40 MG TAB PO SCH (08:46)
[2016-08-17] MEDS: PREGABALIN 25MG CAP PO SCH (08:53)
[2016-08-17] MEDS ORDERED: SENNA 8.6 MG TAB PO SCH (09:00)
[2016-08-17] MEDS ORDERED: POLYETHYLENE (MIRALAX) 17 GM PACK PO SCH (09:00)
[2016-08-17] MEDS ORDERED: DULOXETINE HCL 60 MG CAP PO SCH (09:00)
[2016-08-17] MEDS ORDERED: MONTELUKAST SOD 10 MG TAB PO SCH (09:00)
[2016-08-17] MEDS ORDERED: METOPROLOL SUCC 50MG EXT REL TAB PO SCH (09:00)
[2016-08-17] MEDS ORDERED: LISINOPRIL 10 MG TAB PO SCH (09:00)
--- NOTE | 2016-08-17 09:04 | Anesthesiology Progress Note ---
Anesthesia Post Op Note Date & Time Aug 17, 2016 at 09:03 Vital Signs Pain Intensity: 6.0 Vital Signs Past 12 Hours Date Time Temp Pulse Resp B/P Pulse Ox O2 Delivery O2 Flow Rate FiO2 08/17/16 07:10 36.8 90 16 148/56 91 Room Air 08/17/16 03:25 36.8 90 18 126/57 92 Room Air 08/16/16 23:25 36.6 85 18 151/59 94 Room Air 08/16/16 23:25 Room Air Notes Mental Status: alert / awake / arousable, participated in evaluation Pt Amnestic to Procedure: Yes Nausea / Vomiting: adequately controlled Pain: adequately controlled Airway Patency, RR, SpO2: stable & adequate BP & HR: stable & adequate Hydration State: stable & adequate Anesthetic Complications: no major complications apparent
[2016-08-17 10:44] VITALS: BP 148/56; PULSE 90; TEMP 36.8; O2SAT 91
[2016-09-24] MEDS ORDERED: CRS/10 PO (15:53)
[2016-09-24] MEDS ORDERED: INSDGIPEN SC (15:57)
[2016-09-24] MEDS ORDERED: LYR50 PO (15:59)
[2016-09-24] MEDS ORDERED: INSU100I SC (16:03)
[2016-09-24] MEDS ORDERED: BISA10SU38 PR (16:13)
[2016-09-24] MEDS ORDERED: DXM/4 PO (16:13)
[2016-09-24] MEDS ORDERED: ALBU18002 INH (16:15)
[2016-09-24] MEDS ORDERED: ACET-1311 PO (16:16)
[2016-09-24] MEDS ORDERED: ONDA8TAB12 PO (16:19)
[2016-09-24] MEDS ORDERED: PANC6000 PO ×2 (16:23→16:46)
[2016-09-24] MEDS ORDERED: INSU100I2 SC (16:24)
[2016-09-24] MEDS ORDERED: ACET-1256 PO (16:33)
[2016-09-24] MEDS ORDERED: FERR325T5 PO (16:46)
[2016-09-24] MEDS ORDERED: SYMIN160 INH (18:49)
[2016-09-24] MEDS ORDERED: OMEP20CA9 PO (21:25)
[2016-09-30] MEDS ORDERED: MRLP17 PO (08:45)
[2016-09-30] MEDS ORDERED: PRT40 PO (08:45)
[2016-09-30] MEDS ORDERED: INSDGIPEN SC (08:45)
[2016-09-30] MEDS ORDERED: CPR500 PO (08:45)
[2016-09-30] MEDS ORDERED: CLC100X PO (08:45)
[2016-09-30] MEDS ORDERED: MTR500 PO (08:45)
== END 2016-08-17 12:15 | disposition home health service (06) ==
LOC: ENRESERVDT → ENRESERVTM → C.ACU 07:56 → C.MSW 12:31
PROVIDERS: ADMIT Surgery; ATTEND Surgery
DX: C50.412 Malignant neoplasm of upper-outer quadrant of left female breast (principal); N60.12 Diffuse cystic mastopathy of left breast; E11.40 Type 2 diabetes mellitus with diabetic neuropathy, unspecified; J44.9 Chronic obstructive pulmonary disease, unspecified; K21.9 Gastro-esophageal reflux disease without esophagitis; M79.7 Fibromyalgia; E78.5 Hyperlipidemia, unspecified; E55.9 Vitamin D deficiency, unspecified; I73.9 Peripheral vascular disease, unspecified; I35.0 Nonrheumatic aortic (valve) stenosis; I12.9 Hypertensive chronic kidney disease with stage 1 through stage 4 chronic kidney disease, or unspecified chronic kidney disease; N18.3 Chronic kidney disease, stage 3 (moderate); E03.9 Hypothyroidism, unspecified; Z79.4 Long term (current) use of insulin; Z90.710 Acquired absence of both cervix and uterus; Z90.49 Acquired absence of other specified parts of digestive tract; Z87.891 Personal history of nicotine dependence; Z80.3 Family history of malignant neoplasm of breast; Z83.3 Family history of diabetes mellitus; Z82.49 Family history of ischemic heart disease and other diseases of the circulatory system; Z80.1 Family history of malignant neoplasm of trachea, bronchus and lung

== ENCOUNTER → 2016-08-23 | Outpatient (CLI) | payer OTHER, MEDICARE ==
[~2016-08-23] MED LIST changes: +ACET-1311 PO; +ALBU18002 INH; +AMOX1TAB43 PO; +AMOX875T PO; +BISA10SU38 PR; -CEFAZOLIN 2000 MG/60 ML D5W IV SCH; +CEPH500C2 PO; +CLC100X PO; +CPR500 PO; +DOCU-94 PO; +DOCU100C31 PO; +DXM/4 PO; +FERR325T5 PO; -GABA1CAP PO; +HYDR-5688 PO; +IMD/2 PO; +INSDGIPEN SC; +INSU100I SC; +INSU100I2 SC; -LACTATED RINGER'S 1000ML 1,000 ML IV SCH; +LCTX PO; +LSN10 PO; +MRLP17 PO; +MTR500 PO; +OMEP20CA9 PO; +ONDA8TAB12 PO; +OXYC-57 PO; +PANC6000 PO; +PANT40TA PO; +POLY150C PO; +PREG1CAP36 PO; +PRT40 PO; +SNK PO; +SYMIN160 INH; +TIOT1AER2 INH
--- NOTE | 2016-08-23 11:02 | DIAGNOSTIC IMAGING REPORT ---
PET/CT CLINICAL HISTORY: Breast cancer. TECHNIQUE: A PET/CT was performed from the skull base through the upper thighs following intravenous injection of 11.4 mCi of F 18 FDG IV. The injection was performed at 8:38 AM on August 23, 2016 and imaging began at 9:39 AM on August 23, 2016. Unenhanced CT was performed for attenuation correction purposes and anatomic localization. CT DOSE: 684.53 mGycm COMPARISON STUDY: CT of the abdomen and pelvis October 01, [address] July 27, 2013. FINDINGS: Head and neck: No suspicious FDG uptake is identified within the neck. There is no cervical lymphadenopathy. Muscular uptake within the scalene muscles is noted. Chest: There are postsurgical findings within the left breast with several small cavities which reflects resection bed. Minimal FDG uptake within the left breast is postsurgical. There is no left axillary lymphadenopathy. No mediastinal or hilar lymphadenopathy is present. Moderate emphysema is noted. A 5 mm groundglass nodule within the right upper lobe shown on image [address] of May 17, 2006. The previously described 5 mm right lower lobe nodule shown on image 116 is unchanged since abdominal CT of October 02, 2013. No new nodules are present. Lungs are suboptimally assessed due to respiratory motion inherent PET/CT imaging. A few subpleural densities likely reflect atelectasis. A few additional smaller pulmonary nodule are unchanged since prior imaging studies. Abdomen and Pelvis: No suspicious FDG uptake is identified within the abdomen or the pelvis. There is no abdominal or pelvic lymphadenopathy. Pneumobilia is again noted. There is extensive colonic diverticulosis without evidence for acute diverticulitis. Musculoskeletal: No suspicious skeletal uptake is identified. IMPRESSION: 1. No PET/CT evidence of metastatic disease. 2. Postsurgical findings within the left breast. Mild FDG uptake within the left breast is postsurgical. 3. Several small pulmonary nodules which are likely benign. These are similar to prior exams. A follow-up chest CT in one year to ensure stability is recommended. Electronically signed by: Chris Ferrer M.D. 08/23/2016 11:01 AM Dictated Date/Time: 08/23/2016 10:40 AM
== END | disposition home or self-care (01) ==
LOC: C.PET 07:44
PROVIDERS: ATTEND Internal Medicine Hematology & Oncology
DX: C50.919 Malignant neoplasm of unspecified site of unspecified female breast (principal)

== ENCOUNTER → 2016-09-07 | Outpatient (CLI) | payer OTHER, MEDICARE ==
[2016-09-07 10:19] LABS: ALT/SGPT 12 U/L (12-78); AMYLASE 32 U/L (25-115); AST/SGOT 8 U/L (15-37); BLOOD UREA NITROGEN 22 mg/dl (7-18); BUN/CREATININE RATIO 30.9 (10-20); CARBON DIOXIDE 28 mmol/L (21-32); CHLORIDE 108 mmol/L (98-107); CREATININE 0.72 mg/dl (0.60-1.20); GLUCOSE 136 mg/dl (70-99); POTASSIUM 4.5 mmol/L (3.5-5.1); SODIUM 141 mmol/L (136-145)
[2016-09-07 10:22] LABS: ALB/GLOB RATIO 0.9 (0.9-2); ALKALINE PHOSPHATASE 107 U/L (45-117)
[2016-09-07 11:12] LABS: BASO % 0.3 %; BASO ABS # 0.03 K/uL (0-0.2); COMPLETE YES; EOS % 1.7 %; HEMATOCRIT 31.5 % (37-47); IG% 8.1 %; LYMPH % 10.9 %; LYMPH ABS # 1.25 K/uL (1.2-3.4); MEAN CELL VOLUME 94.9 fL (80-100); MEAN CORPUSCULAR HEMOGLOBIN 30.1 pg (25-34); MEAN CORPUSCULAR HGB CONC 31.7 g/dl (32-36); MEAN PLATELET VOLUME 11.4 fL (7.4-10.4); MONO % 0.5 %; NEUT % 78.5 %; PLATELET COUNT 173 K/uL (130-400); PLT ESTIMATE NORMAL; RED BLOOD COUNT 3.32 M/uL (4.2-5.4); WHITE BLOOD COUNT 11.46 K/uL (4.8-10.8)
== END | disposition home or self-care (01) ==
LOC: C.LABFOXDH 09:50
PROVIDERS: ATTEND Internal Medicine
DX: R10.9 Unspecified abdominal pain (principal)

== ENCOUNTER → 2016-09-14 | Outpatient (CLI) | payer OTHER, MEDICARE ==
[2016-09-14 10:48] LABS: HEMATOCRIT 27.8 % (37-47); MEAN CELL VOLUME 94.9 fL (80-100); MEAN CORPUSCULAR HGB CONC 30.6 g/dl (32-36); MEAN PLATELET VOLUME 11.5 fL (7.4-10.4); PLATELET COUNT 160 K/uL (130-400); RED BLOOD COUNT 2.93 M/uL (4.2-5.4); WHITE BLOOD COUNT 16.27 K/uL (4.8-10.8)
[2016-09-14 11:09] LABS: ALB/GLOB RATIO 0.8 (0.9-2); ALT/SGPT 16 U/L (12-78); AMYLASE 31 U/L (25-115); AST/SGOT 14 U/L (15-37); BLOOD UREA NITROGEN 11 mg/dl (7-18); BUN/CREATININE RATIO 13.7 (10-20); CALCIUM 8.7 mg/dl (8.5-10.1); CARBON DIOXIDE 31 mmol/L (21-32); CHLORIDE 110 mmol/L (98-107); CREATININE 0.78 mg/dl (0.60-1.20); GLUCOSE 87 mg/dl (70-99); POTASSIUM 4.1 mmol/L (3.5-5.1); SODIUM 147 mmol/L (136-145)
[2016-09-14 11:10] LABS: ALKALINE PHOSPHATASE 98 U/L (45-117)
== END | disposition home or self-care (01) ==
LOC: C.LABFOXDH 09:45
PROVIDERS: ATTEND Internal Medicine
DX: R10.84 Generalized abdominal pain (principal)

== ENCOUNTER → 2016-09-15 | Outpatient (CLI) | payer OTHER, MEDICARE ==
[2016-09-15 09:44] LABS: HEMATOCRIT 26.7 % (37-47); MEAN CELL VOLUME 95.7 fL (80-100); MEAN CORPUSCULAR HGB CONC 30.3 g/dl (32-36); MEAN PLATELET VOLUME 11.1 fL (7.4-10.4); PLATELET COUNT 175 K/uL (130-400); RED BLOOD COUNT 2.79 M/uL (4.2-5.4); WHITE BLOOD COUNT 14.83 K/uL (4.8-10.8)
[2016-09-15 10:03] LABS: ALT/SGPT 15 U/L (12-78); AST/SGOT 13 U/L (15-37); BLOOD UREA NITROGEN 11 mg/dl (7-18); BUN/CREATININE RATIO 13.7 (10-20); CALCIUM 8.7 mg/dl (8.5-10.1); CARBON DIOXIDE 32 mmol/L (21-32); CHLORIDE 109 mmol/L (98-107); CREATININE 0.79 mg/dl (0.60-1.20); GLUCOSE 71 mg/dl (70-99); POTASSIUM 3.9 mmol/L (3.5-5.1); SODIUM 146 mmol/L (136-145)
[2016-09-15 10:06] LABS: ALB/GLOB RATIO 0.8 (0.9-2); ALKALINE PHOSPHATASE 108 U/L (45-117)
[2016-09-15 10:10] LABS: COMPLETE YES; LYMPHOCYTE % 20.9 %; MYELOCYTE % 2.6 %; NEUTROPHILS % 70.4 %; TOXIC GRANULATION 1+
== END | disposition home or self-care (01) ==
LOC: C.LABFOXDH 08:39
PROVIDERS: ATTEND Nurse Practitioner Family
DX: C50.412 Malignant neoplasm of upper-outer quadrant of left female breast (principal)

== ENCOUNTER → 2016-10-11 | Outpatient (CLI) | payer OTHER, MEDICARE ==
[~2016-10-11] MED LIST changes: -ALBU1AER9 INH; -CEPH500C2 PO; -CLOB-85 TOP; -HMLI SC; -HYDR-5688 PO; -INSUINJ4 SQ; -OMEP20CA9 PO; -PREG1CAP36 PO
[2016-10-11 10:08] LABS: HEMATOCRIT 30.6 % (37-47); MEAN CELL VOLUME 94.2 fL (80-100); MEAN CORPUSCULAR HEMOGLOBIN 29.8 pg (25-34); MEAN CORPUSCULAR HGB CONC 31.7 g/dl (32-36); MEAN PLATELET VOLUME 11.8 fL (7.4-10.4); PLATELET COUNT 162 K/uL (130-400); RED BLOOD COUNT 3.25 M/uL (4.2-5.4); WHITE BLOOD COUNT 21.76 K/uL (4.8-10.8)
[2016-10-11 10:16] LABS: CALCIUM 8.4 mg/dl (8.5-10.1)
[2016-10-11 10:22] LABS: ALT/SGPT 21 U/L (12-78); AST/SGOT 18 U/L (15-37); BLOOD UREA NITROGEN 24 mg/dl (7-18); BUN/CREATININE RATIO 29.1 (10-20); CARBON DIOXIDE 26 mmol/L (21-32); CHLORIDE 109 mmol/L (98-107); CREATININE 0.82 mg/dl (0.60-1.20); GLUCOSE 98 mg/dl (70-99); POTASSIUM 4.3 mmol/L (3.5-5.1); SODIUM 143 mmol/L (136-145)
[2016-10-11 10:25] LABS: ALB/GLOB RATIO 0.9 (0.9-2); ALKALINE PHOSPHATASE 73 U/L (45-117)
[2016-10-11 12:06] LABS: BASO % 0.6 %; BASO ABS # 0.13 K/uL (0-0.2); COMPLETE YES; EOS % 0.2 %; HYPOSEGMENTED POLYS 2+; IG% 5.5 %; LYMPH % 7.9 %; LYMPH ABS # 1.72 K/uL (1.2-3.4); MONO % 0.6 %; NEUT % 85.2 %; PLT ESTIMATE NORMAL
== END | disposition home or self-care (01) ==
LOC: C.LABFOXDH 09:06
PROVIDERS: ATTEND Nurse Practitioner Family
DX: C50.412 Malignant neoplasm of upper-outer quadrant of left female breast (principal)

== ENCOUNTER 2016-10-14 00:08 | Emergency (ER) | payer OTHER, MEDICARE ==
[~2016-10-14] VITALS: Ht 154.9 cm; Wt 58.8 kg
[~2016-10-14 00:08] MED LIST changes: -AMOX1TAB43 PO; -AMOX875T PO; -DOCU-94 PO; -DOCU100C31 PO; -IMD/2 PO; -LCTX PO; -LSN10 PO; -OXYC-57 PO; -PANT40TA PO; -POLY150C PO; -SNK PO; -TIOT1AER2 INH
[2016-10-14 00:16] VITALS: Ht 154.9 cm; Wt 58.8 kg
[2016-10-14 00:55] VITALS: TEMP 37
[2016-10-14] MEDS ORDERED: MoRPHine SULFATE 4 MG/ML 1 ML CARP\\VIAL IV STA ×2 (01:01→03:43)
[2016-10-14] MEDS ORDERED: SODIUM CHLORIDE 0.9% 1000ML 1,000 ML IV STA (01:01)
[2016-10-14] MEDS ORDERED: ONDANSETRON INJ 2 MG/ML 2 ML VIAL IV STA (01:01)
[2016-10-14 01:09] LABS: HEMATOCRIT 29.4 % (37-47); MEAN CELL VOLUME 93.3 fL (80-100); MEAN CORPUSCULAR HEMOGLOBIN 29.5 pg (25-34); MEAN CORPUSCULAR HGB CONC 31.6 g/dl (32-36); PLATELET COUNT 138 K/uL (130-400); RED BLOOD COUNT 3.15 M/uL (4.2-5.4); WHITE BLOOD COUNT 3.58 K/uL (4.8-10.8)
[2016-10-14 01:28] LABS: BUN/CREATININE RATIO 19.9 (10-20); CALCIUM 8.3 mg/dl (8.5-10.1); CREATININE 0.9 mg/dl (0.60-1.20); POTASSIUM 4.3 mmol/L (3.5-5.1)
[2016-10-14 01:37] LABS: BASO ABS # 0.03 K/uL (0-0.2); BASOPHIL % 0.9 %; COMPLETE YES; DOHLE BODIES 1+; EOSINOPHIL % 1.8 %; LYMPH ABS # 1.19 K/uL (1.2-3.4); LYMPHOCYTE % 33.3 %; META ABS # 0.03 K/uL (0-0); METAMYELOCYTE % 0.9 %; MYELOCYTE % 1.8 %; NEUTROPHILS % 56.9 %; TOXIC GRANULATION 1+
[2016-10-14 01:59] LABS: URINE APPEARANCE CLEAR (CLEAR); URINE BILIRUBIN NEG (NEG); URINE COLOR YELLOW; URINE NITRITE NEG (NEG); URINE SPECIFIC GRAVITY 1.028 (1.000-1.030); UROBILINOGEN NEG (NEG); ZZUR CULT IF INDIC CLEAN CATCH NO
[2016-10-14 02:03] LABS: MANUAL MICROSCOPIC REQUIRED? NO; REVIEW REQ? NO
[2016-10-14] MEDS ORDERED: OPTIRAY 320 IV PRN (02:30)
[2016-10-14] MEDS ORDERED: DOCU100C31 PO (02:36)
[2016-10-14] MEDS ORDERED: IMD/2 PO (02:47)
[2016-10-14] MEDS ORDERED: POLY150C PO (02:49)
--- NOTE | 2016-10-14 03:12 | EMERGENCY ROOM VISIT NOTE ---
ED Visit Note First contact with patient: 00:44 I saw this patient in conjunction with Radha Campos PA-C. I agree with her decision making and treatment plan.
[2016-10-14] MEDS ORDERED: OXYC-57 PO (04:48)
[2016-10-14] MEDS ORDERED: AMOX875T PO (04:48)
--- NOTE | 2016-10-14 04:52 | EMERGENCY ROOM VISIT NOTE ---
History First contact with patient: 00:44 Chief Complaint: ABDOMINAL PAIN Stated Complaint: ABDOMINAL PAIN Nursing Triage Summary: Patient arrives from [facility] via BLS transport with complaints of increased abdominal pain. Patient has a hx of colitis and states "I've been dealing with this all day and I told them I needed something more than tylenol." Patient has a hx of breat CA, last chemo treatment was approx. 1 week ago. Patient notes that abdominal pain is in the lower abdomen with tenderness noted in the right upper quadrant with palpation. History of Present Illness The patient is a 80 year old female who presents to the Emergency Room with complaints of right lower abdominal pain. The patient states that she felt abdominal pain beginning yesterday. She states the pain is severe and the Tylenol that they give her at [facility] does not relieve the pain. She rates her discomfort an 8/10. She reports that she had chemotherapy one week ago and had nausea and diarrhea afterward. She has had persistent diarrhea. She states the pain radiates from the right lower abdomen into the low back. The pain has been gradually worsening. She states this feels similar to when she was seen here initially with diverticulitis. She denies vomiting, fevers/chills or blood in the stools. Review of Systems A complete 10 point review of systems was reviewed with the patient with pertinent positives and negatives as per history of present illness. All else were negative. Past Medical/Surgical History Medical Problems: (1) Breast cancer (2) Colitis (3) COPD (chronic obstructive pulmonary disease) (4) DM (diabetes mellitus) (5) Leukocytosis (6) Mesenteric ischemia, chronic Family History Breast cancer Diabetes mellitus Heart disease Lung cancer Social History Smoking Status: Former Smoker Drug Use: none Marital Status: Housing Status: lives alone Occupation Status: retired Current/Historical Medications Scheduled Acetaminophen (Tylenol), 1 TAB PO BID Amoxicillin & Pot Clavulanate (Augmentin 875-125 mg), 1 TAB PO BID Budesonide/Formoterol Fumarate (Symbicort 160/4.5 Inhaler ), 2 PUFFS INH BID Calcium (Calcium), 1 TAB PO BID Canagliflozin (Invokana), 100 MG PO QAM Cholecalciferol (Vitamin D3), 1 CAP PO DAILY Clopidogrel (Plavix), 75 MG PO DAILY Coenzyme Q10 (Ubidecarenone) (Coq10), 200 MG PO DAILY Docusate Sodium (Docusate Sodium), 100 MG PO DAILY Duloxetine Hcl (Cymbalta), 60 MG PO QAM Fluticasone Propionate (Nasal) (Flonase Allergy Relief), 2 SPRAYS CÉSAR DAILY Insulin Glargine (Lantus Solostar), 20 UNIT SC BID Insulin Lispro (Human) (Humalog Kwikpen), 10 UNITS SC WM Levothyroxine Sodium (Levo-T), 50 MCG PO QAM Lisinopril (Lisinopril), 10 MG PO DAILY Melatonin (Melatonin Maximum Strengt), 5 MG PO HS Metoprolol Succ (Toprol Xl) (Toprol-Xl), 50 MG PO QAM Montelukast Sod (Montelukast Sodium), 10 MG PO DAILY Pancrelipase (Lipase-Protease- (Creon), 2 CAP PO WM Pantoprazole (Pantoprazole Sodium), 40 MG PO BID Pioglitazone Hcl (Pioglitazone Hcl), 30 MG PO QAM Polyethylene (Miralax), 17 GM PO DAILY Polysaccharide Iron Complex (Nu-Iron 150), 150 MG PO QAM Pregabalin (Lyrica), 50 MG PO BID Rosuvastatin Calcium (Crestor), 10 MG PO QAM Scheduled PRN Acetaminophen (Tylenol), 2 TAB PO Q4H PRN for Pain or Fever Albuterol Sulfate (Proair Respiclick), 2 PUFFS INH Q6H PRN for Wheezing Dexamethasone (Decadron), 8 MG PO for CHEMOTHERAPY Ipratropium-Albuterol (Duoneb), 1 TREATMENT INH QID PRN for SOB/Wheezing Loperamide Hcl (Imodium), 2 MG PO TID PRN for Diarrhea Ondansetron Hcl (Zofran), 8 MG PO Q8 PRN for Nausea Oxycodone/Acetaminophen 5MG/325MG (Percocet 5MG/325MG), 1-2 TABS PO Q6H PRN for Pain Pancrelipase (Lipase-Protease- (Creon), 1 CAP PO DAILY PRN for SNACKS Miscellaneous Medications Insulin Lispro (Human) (Humalog), 1 DOSE SC Allergies Coded Allergies: Prochlorperazine (Verified Allergy, Severe, TONGUE SWELLS/"ALMOST ", ) NUTS (Verified Allergy, Mild, SORE TONGUE/MOUTH, 09/24/16) Aspirin (Verified Adverse Reaction, Intermediate, SEVERE UPSET STOMACH, 09/24/16) Erythromycin (Verified Adverse Reaction, Intermediate, ABD PAIN/CRAMPS/ DIZZINESS, 09/24/16) ABD PAIN/CRAMPS DIZZINESS NSAIDs (Verified Adverse Reaction, Mild, GI UPSET , 09/24/16) Tramadol (Verified Adverse Reaction, Unknown, abd pain, 09/24/16) Physical Exam Vital Signs Date Time Temp Pulse Resp B/P (MAP) Pulse Ox O2 Delivery O2 Flow Rate FiO2 10/14/16 05:15 90 18 118/71 97 10/14/16 04:00 95 18 145/68 95 10/14/16 03:30 86 17 125/53 91 Room Air 10/14/16 02:53 97 17 156/66 97 10/14/16 02:01 90 18 138/90 95 Room Air 10/14/16 00:55 37.0 91 18 138/70 97 Room Air 10/14/16 00:16 37.0 72 19 131/62 94 Room Air Physical Exam VITALS: Vitals are noted on the nurse's note and reviewed by myself. Vital signs stable. GENERAL: This is an 80-year-old female, in no acute distress, nondiaphoretic, well-developed well-nourished. HEART: Regular rate and rhythm without murmurs gallops or rubs. LUNGS: Clear to auscultation bilaterally without wheezes, rales or rhonchi. ABDOMEN: Positive bowel sounds x 4. Tenderness to palpation of the right lower quadrant. No guarding or rebound tenderness. NEURO: Patient was alert and oriented to person place and time. Medical Decision & Procedures ER Provider Diagnostic Interpretation: CT ABDOMEN & PELVIS: Sigmoid diverticula with mild sigmoid wall thickening which may be due to mild diverticulitis or focal colitis. No abscess or free air. Air-stool levels in the colon suggestive of diarrheal state, possibly due to enteritis or other etiology. Recommend clinical correlation. Fecalization of distal small bowel contents which may indicate stasis/delayed transit or nonspecific enteritis. Recommend clinical correlation. No evidence of bowel obstruction, small bowel wall thickening or free air. Appendix not visualized consistent with history of appendectomy. Radiologist: Karma Boogie MD Laboratory Results 10/14/16 00:42 Red Blood Count 3.15, Mean Corpuscular Volume 93.3, Mean Corpuscular Hemoglobin 29.5, Mean Corpuscular Hemoglobin Concent 31.6, Mean Platelet Volume 12.0 10/14/16 00:42 Test 10/14/16 00:42 10/14/16 00:45 White Blood Count 3.58 K/uL (4.8-10.8) Red Blood Count 3.15 M/uL (4.2-5.4) Hemoglobin 9.3 g/dL (12.0-16.0) Hematocrit 29.4 % (37-47) Mean Corpuscular Volume 93.3 fL (80-100) Mean Corpuscular Hemoglobin 29.5 pg (25-34) Mean Corpuscular Hemoglobin Concent 31.6 g/dl (32-36) Platelet Count 138 K/uL (130-400) Mean Platelet Volume 12.0 fL (7.4-10.4) RDW Standard Deviation 55.0 fL (36.4-46.3) RDW Coefficient of Variation 16.3 % (11.5-14.5) Nucleated RBC Absolute Count (auto) 0.02 K/uL (0-0) Neutrophils % (Manual) 56.9 % Lymphocytes % (Manual) 33.3 % Monocytes % (Manual) 4.4 % Eosinophils % (Manual) 1.8 % Basophils % (Manual) 0.9 % Metamyelocytes % 0.9 % Myelocytes % 1.8 % Nucleated Red Blood Cells % 0.5 % Neutrophils # (Manual) 2.04 K/uL (1.4-6.5) Total Absolute Neutrophils 2.04 K/uL (1.4-6.5) Lymphocytes # (Manual) 1.19 K/uL (1.2-3.4) Total Absolute Lymphocytes 1.19 K/uL (1.2-3.4) Monocytes # (Manual) 0.16 K/uL (0.11-0.59) Eosinophils # (Manual) 0.06 K/uL (0-0.5) Basophils # (Manual) 0.03 K/uL (0-0.2) Metamyelocytes # 0.03 K/uL (0-0) Myelocytes # 0.06 K/uL (0-0) Toxic Granulation 1+ Dohle Bodies 1+ Anion Gap 4.0 mmol/L (3-11) Est Creatinine Clear Calc Drug Dose 41.1 ml/min Estimated GFR () 70.0 Estimated GFR (Non- 60.4 BUN/Creatinine Ratio 19.9 (10-20) Calcium Level 8.3 mg/dl (8.5-10.1) Total Bilirubin 0.2 mg/dl (0.2-1) Aspartate Amino Transf (AST/SGOT) 14 U/L (15-37) Alanine Aminotransferase (ALT/SGPT) 18 U/L (12-78) Alkaline Phosphatase 78 U/L (45-117) Total Protein 5.9 gm/dl (6.4-8.2) Albumin 2.9 gm/dl (3.4-5.0) Globulin 3.0 gm/dl (2.5-4.0) Albumin/Globulin Ratio 1.0 (0.9-2) Lipase 78 U/L (73-393) Urine Color YELLOW Urine Appearance CLEAR (CLEAR) Urine pH 5.0 (4.5-7.5) Urine Specific Stickney 1.028 (1.000-1.030) Urine Protein NEG (NEG) Urine Glucose (UA) 3+ (NEG) Urine Ketones NEG (NEG) Urine Occult Blood NEG (NEG) Urine Nitrite NEG (NEG) Urine Bilirubin NEG (NEG) Urine Urobilinogen NEG (NEG) Urine Leukocyte Esterase NEG (NEG) Medications Administered Medications (Trade) Dose Ordered Sig/Mark Route Start Time Stop Time Status Last Admin Dose Admin Sodium Chloride 1,000 ml @ 999 mls/hr Q1H1M STAT IV 10/14/16 01:01 10/14/16 02:04 DC 10/14/16 01:21 999 MLS/HR Ondansetron HCl (Zofran Inj) 4 mg NOW STAT IV 10/14/16 01:01 10/14/16 01:04 DC 10/14/16 01:20 4 MG Morphine Sulfate (MoRPHine SULFATE INJ) 4 mg NOW STAT IV 10/14/16 01:01 10/14/16 01:04 DC 10/14/16 01:21 4 MG Morphine Sulfate (MoRPHine SULFATE INJ) 4 mg NOW STAT IV 10/14/16 03:43 10/14/16 03:44 DC 10/14/16 03:59 4 MG Amoxicillin/ Clavulanate Potassium (Augmentin 875MG Home Pack) 1 homepack UD ONCE PO 10/14/16 05:00 10/14/16 05:01 DC 10/14/16 05:05 1 HOMEPACK Oxycodone/ Acetaminophen (Percocet 5/ 325MG Home Pack) 1 homepack UD ONCE PO 10/14/16 05:00 10/14/16 05:01 DC 10/14/16 05:00 1 HOMEPACK Heparin Sodium (Porcine) (Heparin 100 Unit/ml 5ml Flush) 5 ml STK-MED ONCE .ROUTE 10/14/16 05:21 10/14/16 05:22 DC 10/14/16 05:06 5 ML ED Course The patient was evaluated as above. Labs were drawn and IV access was obtained. Patient was medicated with 1 L normal saline solution, 4 mg morphine IV and [address] of the abdomen and pelvis was performed and read by radiology as above. Patient was reevaluated and had some continued pain. She was given an additional 4 mg morphine. Discharge instructions were reviewed with the patient. She was given home packs of Percocet and Augmentin. The patient verbalized understanding of my assessment and treatment plan and was discharged home in good condition. Medical Decision Differential diagnosis includes diverticulitis, perforation, abscess, fistula, colitis, among others. The patient is an 80-year-old female who presents today complaining of right lower quadrant pain. Labs revealed leukopenia consistent with recent chemotherapy. Patient has a stable anemia. No concerning electrolyte abnormalities. CT was obtained to rule out abscess or perforation and showed mild diverticulitis. There is also evidence of enteritis, possibly secondary to recent chemotherapy. The patient will be treated with Augmentin and pain medication. She is afebrile and in stable condition. She was instructed to follow-up with her primary care provider. The patient was independently evaluated by Dr. Ruiz, ED attending physician, who agreed with my assessment and treatment plan. Based on the patient's presentation and work up, I feel the patient is stable for outpatient treatment. The patient was educated to return to the emergency department for any worsening of their current condition or new/concerning symptoms. She will follow up with her PCP and oncologist. Medication reconciliation: I attest that I have personally reviewed the patient 's current medication list. Blood pressure screening: Patient was found to have an elevated blood pressure which improved during this stay and was likely situational. She will not require follow-up regarding her blood pressure. Impression Primary Impression: Diverticulitis large intestine Departure Information Dispostion Home / Self-Care Condition GOOD Prescriptions Oxycodone/Acetaminophen 5MG/325MG (PERCOCET 5MG/325MG) Tab 1-2 TABS PO Q6H Y for Pain, #15 TAB For Initial Treatment Prov: Radha Campos PA-C 10/14/16 Amoxicillin & Pot Clavulanate (Augmentin 875-125 mg) 1 Tab Tab 1 TAB PO BID for 10 Days, #20 TAB Prov: Radha Campos PA-C 10/14/16 Referrals Dae Duque M.D. (PCP) Patient Instructions My [facility] Additional Instructions You were prescribed Augmentin to be taken twice daily for 10 days. This is an antibiotic. All antibiotics have the potential to cause diarrhea. Stop this medication and contact a medical provider if you were to develop any significant adverse side effects including: wheezing, shortness of breath, passing out, vomiting, or a diffuse rash. Always take antibiotics as directed and COMPLETE the ENTIRE course regardless of the improvement of your symptoms. You have been prescribed Percocet to be used for pain control. Take 1-2 tablets every 4-6 hours as needed for pain. This is a narcotic medication. You cannot drive or consume alcohol while on this medicine. This medicine should only be used for pain that cannot be controlled with [id number] pain medicines. Follow-up with primary care provider. Contact them today. You should also follow-up with Dr. Thaap. Return here for worsening abdominal pain, vomiting, fevers, or any new/ concerning symptoms. Problem Qualifiers Primary Impression: Diverticulitis large intestine Diverticulitis bleeding: unspecified bleeding status Diverticulitis complication: without perforation or abscess Qualified Codes: K57.32 - Diverticulitis of large intestine without perforation or abscess without bleeding
[2016-10-14] MEDS ORDERED: PERCOCET HOME PACK PO ONE (05:00)
[2016-10-14] MEDS ORDERED: AMOXICIL/CLAVU 875MG HOME PACK PO ONE (05:00)
[2016-10-14 05:15] VITALS: BP 118/71; PULSE 90; O2SAT 97
--- NOTE | 2016-10-14 07:20 | DIAGNOSTIC IMAGING REPORT ---
ABDOMEN AND PELVIS CT WITH IV CONTRAST CT DOSE: 761.21 mGycm HISTORY: RLQ pain, eval for diverticulitis, abscess TECHNIQUE: Multiaxial CT images of the abdomen and pelvis were performed following the use of intravenous contrast. COMPARISON STUDY: Abdomen and pelvis CT 09/24/2016. FINDINGS: The lung bases are essentially clear. Posterior fusion within the lower thoracic and lumbar spine. The spleen, adrenal glands, and kidneys are unremarkable. Mild thickening and pericolonic fat stranding at the distal sigmoid colon. This likely represents an acute diverticulitis. No perforation or abscess identified at this time. The gallbladder surgically absent. Normal bladder. The uterus is surgically absent. No retroperitoneal lymphadenopathy. There is a stent within the proximal superior mesenteric artery, unchanged. The pancreas enhances normally. Trace pneumobilia. Extensive gluteal subcutaneous calcifications. There is fecalization of the distal small bowel contents which may indicate stasis/delayed transit. However, no evidence for bowel obstruction at this time. IMPRESSION: 1. Mild thickening and pericolonic fat stranding within the distal sigmoid colon. This favors acute diverticulitis. However, a nonspecific colitis could also have a similar appearance. No perforation or abscess at this time. Follow-up colonoscopy is recommended once the patient's symptoms have resolved to exclude the possibility of an underlying colonic lesion. 2. There is fecalization of the distal small bowel contents which may indicate stasis/delayed transit. However, no evidence for bowel obstruction at this time. Electronically signed by: Jose Bishop M.D. 10/14/2016 7:19 AM Dictated Date/Time: 10/14/2016 7:12 AM
== END 2016-10-14 05:15 | disposition home or self-care (01) ==
LOC: EDBD 00:08 → C.EDA 00:09
DX: K57.32 Diverticulitis of large intestine without perforation or abscess without bleeding (principal); C50.919 Malignant neoplasm of unspecified site of unspecified female breast; J44.9 Chronic obstructive pulmonary disease, unspecified; E11.9 Type 2 diabetes mellitus without complications; Z80.3 Family history of malignant neoplasm of breast; Z83.3 Family history of diabetes mellitus; Z80.1 Family history of malignant neoplasm of trachea, bronchus and lung; Z87.891 Personal history of nicotine dependence; Z79.4 Long term (current) use of insulin; Z79.899 Other long term (current) drug therapy; Z79.01 Long term (current) use of anticoagulants; D64.9 Anemia, unspecified

== ENCOUNTER → 2016-11-02 | Outpatient (CLI) | payer OTHER, MEDICARE ==
[~2016-11-02] MED LIST changes: +AMOX1TAB43 PO; -BISA10SU38 PR; -CLC100X PO; -CPR500 PO; +DOCU-94 PO; +DOCU100C31 PO; -FERR325T5 PO; +IMD/2 PO; +LCTX PO; +LSN10 PO; -MTR500 PO; +OXYC-57 PO; +PANT40TA PO; +POLY150C PO; -SENN-61 PO; +SNK PO; +TIOT1AER2 INH
[2016-11-02 10:07] LABS: BASO % 0.3 %; BASO ABS # 0.02 K/uL (0-0.2); COMPLETE YES; EOS % 5.1 %; HEMATOCRIT 32.3 % (37-47); IG% 0.4 %; LYMPH % 31.5 %; LYMPH ABS # 2.22 K/uL (1.2-3.4); MEAN CELL VOLUME 92.6 fL (80-100); MEAN CORPUSCULAR HEMOGLOBIN 28.9 pg (25-34); MEAN CORPUSCULAR HGB CONC 31.3 g/dl (32-36); MEAN PLATELET VOLUME 10.7 fL (7.4-10.4); MONO % 9.2 %; NEUT % 53.5 %; PLATELET COUNT 353 K/uL (130-400); RED BLOOD COUNT 3.49 M/uL (4.2-5.4); WHITE BLOOD COUNT 7.04 K/uL (4.8-10.8)
[2016-11-02 10:14] LABS: BLOOD UREA NITROGEN 18 mg/dl (7-18); BUN/CREATININE RATIO 18.5 (10-20); CALCIUM 10.4 mg/dl (8.5-10.1); CARBON DIOXIDE 28 mmol/L (21-32); CHLORIDE 106 mmol/L (98-107); CREATININE 0.95 mg/dl (0.60-1.20); GLUCOSE 113 mg/dl (70-99); POTASSIUM 4.6 mmol/L (3.5-5.1); SODIUM 141 mmol/L (136-145)
[2016-11-02 10:17] LABS: ALKALINE PHOSPHATASE 78 U/L (45-117); ALT/SGPT 18 U/L (12-78); AST/SGOT 12 U/L (15-37)
== END | disposition home or self-care (01) ==
LOC: C.LABFOXDH 09:06
PROVIDERS: ATTEND Internal Medicine Hematology & Oncology
DX: C50.412 Malignant neoplasm of upper-outer quadrant of left female breast (principal)

== ENCOUNTER 2016-12-31 22:14 | Inpatient (IN) | payer OTHER, MEDICARE ==
[~2016-12-31] VITALS: Ht 157.5 cm; Wt 82.4 kg
[~2016-12-31 22:14] MED LIST changes: -AMOX1TAB43 PO; -DOCU-94 PO; -DXM/4 PO; -LCTX PO; -LSN10 PO; -PANT40TA PO; -SNK PO; -TIOT1AER2 INH
[2016-12-31] MEDS ORDERED: ACETAMINOPHEN 500 MG TAB PO STA (22:29)
--- NOTE | 2016-12-31 22:33 | EMERGENCY ROOM VISIT NOTE ---
History Report prepared by Aileen: Jayjay Hopper Under the Supervision of: Dr. Devaughn Andrea D.O. First contact with patient: 22:26 Chief Complaint: HEADACHE Stated Complaint: HEADACHE/BACK PAIN / [place] History of Present Illness The patient is a 81 year old female who presents to the Emergency Room with complaints of a worsening fever that began today. Her temperature is 38 C. The patient lives at [facility] and has been having chills. She is also having headache , back pain, leg pain, and arm pain. She is experiencing abdominal pain and pain upon urination as well. She denies any diarrhea. Source of History: patient Onset: this evening Position: other (Global) Symptom Intensity: 38 C Quality: other (Fever) Timing: worsening Associated Symptoms: + chills, + headache, + abdominal pain, + back pain, + urinary symptoms, No diarrhea Review of Systems See HPI for pertinent positives and negatives. A total of ten systems were reviewed and were otherwise negative. Past Medical & Surgical Medical Problems: (1) Breast cancer (2) Colitis (3) COPD (chronic obstructive pulmonary disease) (4) DM (diabetes mellitus) (5) Leukocytosis (6) Mesenteric ischemia, chronic Family History Breast cancer Diabetes mellitus Heart disease Lung cancer Social History Smoking Status: Never Smoker Smokeless Tobacco Use: No Drug Use: none Marital Status: Housing Status: lives alone Occupation Status: retired Current/Historical Medications Scheduled Acetaminophen (Tylenol), 1 TAB PO BID Budesonide/Formoterol Fumarate (Symbicort 160/4.5 Inhaler ), 2 PUFFS INH BID Calcium (Calcium), 1 TAB PO BID Canagliflozin (Invokana), 100 MG PO QAM Cholecalciferol (Vitamin D3), 1 CAP PO DAILY Clopidogrel (Plavix), 75 MG PO DAILY Coenzyme Q10 (Ubidecarenone) (Coq10), 200 MG PO DAILY Docusate Sodium (Docusate Sodium), 100 MG PO DAILY Duloxetine Hcl (Cymbalta), 60 MG PO QAM Insulin Glargine (Lantus Solostar), 24 UNITS SC QAM Insulin Glargine (Lantus Solostar), 20 UNITS SC HS Insulin Lispro (Human) (Humalog Kwikpen), 10 UNITS SC WM Levothyroxine Sodium (Levo-T), 50 MCG PO QAM Lisinopril (Lisinopril), 5 MG PO DAILY Melatonin (Melatonin Maximum Strengt), 5 MG PO HS Metoprolol Succ (Toprol Xl) (Toprol-Xl), 50 MG PO QAM Montelukast Sod (Montelukast Sodium), 10 MG PO DAILY Pancrelipase (Lipase-Protease- (Creon), 2 CAP PO WM Pantoprazole (Protonix), 40 MG PO QAM Pregabalin (Lyrica), 50 MG PO BID Rosuvastatin Calcium (Crestor), 10 MG PO QAM Tiotropium [place] (Spiriva Respimat), 2 PUFFS INH QAM Scheduled PRN Acetaminophen (Tylenol), 2 TAB PO Q4H PRN for Pain or Fever Albuterol Sulfate (Proair Respiclick), 2 PUFFS INH Q6H PRN for Wheezing Docusate Sodium (Colace), 2 CAP PO Q24H PRN for Constipation Ipratropium-Albuterol (Duoneb), 1 TREATMENT INH QID PRN for SOB/Wheezing Loperamide Hcl (Imodium), 2 MG PO TID PRN for Diarrhea Ondansetron Hcl (Zofran), 8 MG PO Q8 PRN for Nausea Oxycodone/Acetaminophen 5MG/325MG (Percocet 5MG/325MG), 1 TABLET PO Q4H PRN for Pain Pancrelipase (Lipase-Protease- (Creon), 1 CAP PO DAILY PRN for SNACKS Miscellaneous Medications Insulin Lispro (Human) (Humalog), 1 DOSE SC Allergies Coded Allergies: Prochlorperazine (Verified Allergy, Severe, TONGUE SWELLS/"ALMOST ", ) NUTS (Verified Allergy, Mild, SORE TONGUE/MOUTH, 01/01/17) Aspirin (Verified Adverse Reaction, Intermediate, SEVERE UPSET STOMACH, 01/01/17) Erythromycin (Verified Adverse Reaction, Intermediate, ABD PAIN/CRAMPS/ DIZZINESS, 01/01/17) ABD PAIN/CRAMPS DIZZINESS NSAIDs (Verified Adverse Reaction, Mild, GI UPSET , 01/01/17) Tramadol (Verified Adverse Reaction, Unknown, abd pain, 01/01/17) Physical Exam Vital Signs Date Time Temp Pulse Resp B/P (MAP) Pulse Ox O2 Delivery O2 Flow Rate FiO2 01/01/17 02:47 81 20 127/47 98 Nasal Cannula 2.0 01/01/17 02:02 92 01/01/17 01:27 36.6 88 18 130/51 92 Nasal Cannula 2.0 12/31/16 23:36 96 Nasal Cannula 2.0 12/31/16 23:36 91 20 130/42 96 Nasal Cannula 2.0 12/31/16 23:25 93 Room Air 12/31/16 23:22 85 20 135/48 92 Room Air 12/31/16 22:27 87 12/31/16 22:21 38.0 87 20 144/47 93 Room Air Physical Exam GENERAL: Awake, alert, well-appearing, in no distress HENT: Normocephalic, atraumatic. Oropharynx unremarkable. EYES: Normal conjunctiva. Sclera non-icteric. NECK: Supple. No nuchal rigidity. FROM. No JVD. RESPIRATORY: Clear to auscultation. CARDIAC: Regular rate, normal rhythm. Extremities warm and well perfused. Pulses equal. ABDOMEN: Soft, non-distended. No tenderness to palpation. No rebound or guarding. No masses. RECTAL: Deferred. MUSCULOSKELETAL: Chest examination reveals no tenderness. The back is symmetrical on inspection without obvious abnormality. There is no CVA tenderness to palpation. No joint edema. LOWER EXTREMITIES: Calves are equal size bilaterally and non-tender. No edema. No discoloration. NEURO: Normal sensorium. No sensory or motor deficits noted. SKIN: No rash or jaundice noted. Medical Decision & Procedures ER Provider Diagnostic Interpretation: Radiology results as stated below per my review and radiologist interpretation: CHEST X-RAY 1 VIEW: Negative for infiltrate. Per me. CT ABDOMEN & PELVIS: Comparison: CT abdomen and pelvis 10/14/16. There is pneumoperitoneum with numerous foci of gas anterior to the transverse colon and scattered within the mid and lower abdomen. There is an abnormal cluster of small bowel loops in the lower abdomen (series 2, images 56-62) with wall thickening and surrounding inflammatory changes. There are a few foci of extraluminal gas visible immediately adjacent to these bowel loops, possibly the source of pneumoperitoneum. Findings may be secondary to nonspecific enteritis. Colonic diverticulosis without evidence of acute diverticulitis. Fluid distended small bowel suggesting ileus. Status post cholecystectomy. Liver, spleen, pancreas, adrenal glands, and kidneys are unremarkable. No acute osseous findings. Extensive postsurgical changes of the thoracolumbar spine. Radiologist: Jose Hatfield M.D. Laboratory Results 12/31/16 23:20 Red Blood Count 3.60, Mean Corpuscular Volume 83.9, Mean Corpuscular Hemoglobin 25.8, Mean Corpuscular Hemoglobin Concent 30.8, Mean Platelet Volume 10.7, Neutrophils (%) (Auto) 85.9, Lymphocytes (%) (Auto) 8.5, Monocytes (%) (Auto) 4.9, Eosinophils (%) (Auto) 0.3, Basophils (%) (Auto) 0.1, Neutrophils # (Auto) 13.46, Lymphocytes # (Auto) 1.33, Monocytes # (Auto) 0.76, Eosinophils # (Auto) 0.05, Basophils # (Auto) 0.01 12/31/16 23:20 Test 12/31/16 23:20 12/31/16 23:25 01/01/17 00:05 White Blood Count 15.66 K/uL (4.8-10.8) Red Blood Count 3.60 M/uL (4.2-5.4) Hemoglobin 9.3 g/dL (12.0-16.0) Hematocrit 30.2 % (37-47) Mean Corpuscular Volume 83.9 fL (80-100) Mean Corpuscular Hemoglobin 25.8 pg (25-34) Mean Corpuscular Hemoglobin Concent 30.8 g/dl (32-36) Platelet Count 335 K/uL (130-400) Mean Platelet Volume 10.7 fL (7.4-10.4) Neutrophils (%) (Auto) 85.9 % Lymphocytes (%) (Auto) 8.5 % Monocytes (%) (Auto) 4.9 % Eosinophils (%) (Auto) 0.3 % Basophils (%) (Auto) 0.1 % Neutrophils # (Auto) 13.46 K/uL (1.4-6.5) Lymphocytes # (Auto) 1.33 K/uL (1.2-3.4) Monocytes # (Auto) 0.76 K/uL (0.11-0.59) Eosinophils # (Auto) 0.05 K/uL (0-0.5) Basophils # (Auto) 0.01 K/uL (0-0.2) RDW Standard Deviation 51.6 fL (36.4-46.3) RDW Coefficient of Variation 17.0 % (11.5-14.5) Immature Granulocyte % (Auto) 0.3 % Immature Granulocyte # (Auto) 0.05 K/uL (0.00-0.02) Anion Gap 7.0 mmol/L (3-11) Est Creatinine Clear Calc Drug Dose 36.4 ml/min Estimated GFR () 49.1 Estimated GFR (Non- 42.4 BUN/Creatinine Ratio 17.4 (10-20) Calcium Level 9.6 mg/dl (8.5-10.1) Total Bilirubin 0.3 mg/dl (0.2-1) Direct Bilirubin < 0.1 mg/dl (0-0.2) Aspartate Amino Transf (AST/SGOT) 16 U/L (15-37) Alanine Aminotransferase (ALT/SGPT) 14 U/L (12-78) Alkaline Phosphatase 71 U/L (45-117) Total Protein 7.3 gm/dl (6.4-8.2) Albumin 3.4 gm/dl (3.4-5.0) Bedside Lactic Acid Arterial 1.70 mmol/L (0.36-1.25) Urine Color YELLOW Urine Appearance ERROR (CLEAR) Urine pH 7.5 (4.5-7.5) Urine Specific [place] 1.022 (1.000-1.030) Urine Protein NEG (NEG) Urine Glucose (UA) 3+ (NEG) Urine Ketones NEG (NEG) Urine Occult Blood NEG (NEG) Urine Nitrite NEG (NEG) Urine Bilirubin NEG (NEG) Urine Urobilinogen NEG (NEG) Urine Leukocyte Esterase NEG (NEG) Laboratory results reviewed by me Medications Administered Medications (Trade) Dose Ordered Sig/Mark Route Start Time Stop Time Status Last Admin Dose Admin Acetaminophen (Tylenol Tab) 1,000 mg NOW STAT PO 12/31/16 22:29 12/31/16 22:33 DC 12/31/16 23:29 1,000 MG Sodium Chloride 1,000 ml @ 999 mls/hr Q1H1M IV 12/31/16 22:30 01/30/17 22:29 12/31/16 23:31 999 MLS/HR Piperacillin Sod/ Tazobactam Sod (Zosyn Iv) 4.5 gm NOW STAT IV 01/01/17 02:59 01/01/17 03:01 DC 01/01/17 03:47 4.5 GM ECG Indication: abdominal pain Rate (beats per minute): 90 Rhythm: normal sinus Findings: no acute ischemic change, other (Normal intervals, normal axis) ED Course 2225: The patient was evaluated in room B3B. A complete history and physical exam was performed. 2229: Ordered Tylenol Tab 1000 mg PO 2230: Sodium Chloride 1000 ml @ 999 mls/hr IV 0259: Ordered Vancomycin HCl 1000 mg/Sodium Chloride 270 ml @ 125 mls/hr IV, Zosyn Iv 4.5 gm IV 0300: Upon reexamination, the patient was resting. I discussed the test results and treatment plan with her. I spoke with Dr. Mariama Grijalva of General surgery at this time. The patient will be evaluated by them for further management and care. Medical Decision Differential diagnoses include UTI, pneumonia, sirs, sepsis, bacteremia, metabolic derangement, dehydration, gastritis, gastroenteritis, and viral syndrome. Patient found to have a perforated viscus. I suspect this may be due to diverticulitis or intestinal perforation. Patient was started on IV fluids pain medicine Zofran patient was given Zosyn as well as vancomycin. The case was discussed with the surgeon for further evaluation and surgical treatment. Patient will be admitted; at 3:50 AM the patient is not in septic shock Medication Reconcilliation Current Medication List: was personally reviewed by me Blood Pressure Screening Patient's blood pressure: Elevated blood pressure Blood pressure disposition: Elevated BP felt to be situational Consults Time Called: [phone] Consulting Physician: Dr. Mariama Grijalva - General Surgery Returned Call: [phone] Discussed the patient's case. The patient will be evaluated for further treatment and disposition. Impression Primary Impression: Perforated viscus Scribe Attestation The scribe's documentation has been prepared under my direction and personally reviewed by me in its entirety. I confirm that the note above accurately reflects all work, treatment, procedures, and medical decision making performed by me. Departure Information Dispostion Being Evaluated By Surgeon Referrals Brianna Beckett (PCP) Patient Instructions My [facility]
[2016-12-31] MEDS: SODIUM CHLORIDE 0.9% 1000ML 1,000 ML IV SCH ×2 (23:17→23:31)
[2016-12-31 23:36] LABS: BASO % 0.1 %; BASO ABS # 0.01 K/uL (0-0.2); COMPLETE YES; EOS % 0.3 %; HEMATOCRIT 30.2 % (37-47); IG% 0.3 %; LYMPH % 8.5 %; LYMPH ABS # 1.33 K/uL (1.2-3.4); MEAN CELL VOLUME 83.9 fL (80-100); MEAN CORPUSCULAR HEMOGLOBIN 25.8 pg (25-34); MEAN CORPUSCULAR HGB CONC 30.8 g/dl (32-36); MEAN PLATELET VOLUME 10.7 fL (7.4-10.4); MONO % 4.9 %; NEUT % 85.9 %; PLATELET COUNT 335 K/uL (130-400); WHITE BLOOD COUNT 15.66 K/uL (4.8-10.8)
[2016-12-31 23:59] LABS: ALT/SGPT 14 U/L (12-78); BLOOD UREA NITROGEN 21 mg/dl (7-18); BUN/CREATININE RATIO 17.4 (10-20); CALCIUM 9.6 mg/dl (8.5-10.1); CARBON DIOXIDE 28 mmol/L (21-32); CHLORIDE 101 mmol/L (98-107); GLUCOSE 79 mg/dl (70-99); POTASSIUM 4.3 mmol/L (3.5-5.1); SODIUM 136 mmol/L (136-145)
[2017-01-01 00:02] LABS: ALKALINE PHOSPHATASE 71 U/L (45-117); AST/SGOT 16 U/L (15-37)
[2017-01-01 00:30] LABS: URINE BILIRUBIN NEG (NEG); URINE COLOR YELLOW; URINE NITRITE NEG (NEG); URINE PH 7.5 (4.5-7.5); URINE SPECIFIC GRAVITY 1.022 (1.000-1.030); UROBILINOGEN NEG (NEG)
[2017-01-01 00:45] LABS: MANUAL MICROSCOPIC REQUIRED? NO; REVIEW REQ? NO
[2017-01-01] MEDS ORDERED: OPTIRAY 320 IV PRN ×2 (01:30)
[2017-01-01] MEDS ORDERED: VANCOMYCIN INJ 1,000 MG in SODIUM CHLORIDE 0.9% 250ML 250 ML IV STA (02:59)
[2017-01-01] MEDS ORDERED: PIPERACILLIN/TAZOBACTAM 4.5 GM/100ML D5W IV STA (02:59)
[2017-01-01] MEDS ORDERED: DOCU-94 PO (03:22)
[2017-01-01] MEDS ORDERED: INSDGIPEN SC ×2 (03:26)
[2017-01-01] MEDS ORDERED: PANT40TA PO (03:29)
[2017-01-01] MEDS ORDERED: OXYC-57 PO (03:32)
[2017-01-01] MEDS ORDERED: TIOT1AER2 INH (03:32)
--- NOTE | 2017-01-01 04:11 | Pre-Operative Consultation ---
History General Date of Service: Jan 01, 2017. Stated Complaint: abdominal pain HPI HPI: The patient is a 81 year old female being seen at the request of Dr. Andrea for abdominal pain with CT findings of pneumoperitoneum. She notes the pain is mainly in her lower abdomen, very intense, crampy. Started around 1 day ago. Radiates throughout her whole abdomen. Worse when she turns on her side. No nausea or vomiting. Had a fever up to 38. No bowel movement going on 3 days. Sometimes requires laxatives but had not "gotten around to taking them" yet. Had a similar episode of pain about 1 yr ago at which time she was admitted and had a colonoscopy by Dr. Conner showing diverticulae. Carries the diagnosis of chronic mesenteric ischemia and is s/p mesenteric artery stent by Dr. Mosher about 4 yrs ago. She is due for her f/u with him. On plavix since then. Historian: patient Anticipated Procedure: exploratory laparotomy, bowel resection, possible ostomy Procedure Urgency: Emergency Risk Assessment Pre-Op Conditions: + COPD, + diabetes Daily beta jordyn use?: Yes Problem List Medical Problems: (1) Acute generalized abdominal pain Status: Acute (2) Diffuse abdominal pain Status: Acute (3) Diverticulitis Status: Acute (4) Lower abdominal pain Status: Acute (5) Mesenteric ischemia Status: Acute (6) Nausea, vomiting, and diarrhea Status: Acute (7) Perforated viscus Status: Acute Medical & Surgical History Past Medical History: anxiety, cancer - breast (left side, just treated in july. Finished radiation. Took 1 dose of chemo then refused further), COPD, diabetes, hypertension, hypothyroidism, vascular disease (chronic mesenteric ischemia) Past Surgical History: appendectomy, cholecystectomy, colonoscopy, hysterectomy , orthopedic surgery (back surgery x 4) Family History Family History: no relevant family history Social History Hx Tobacco Use In Past Year?: No Smoking Status: Never Smoker Drug Use: none Marital status: Occupation status: retired Immunizations Have You Had Influenza Vaccine: Yes Date Of Influenza Vaccine: Jan 31, 2011 Have You Had Tetanus Vaccine: No History of Pneumococcal: No Date of Pneumococcal Vaccine: Feb 25, 2003 History Hepatitis B Vaccine: No Allergies Allergies: Coded Allergies: Prochlorperazine (Verified Allergy, Severe, TONGUE SWELLS/"ALMOST ", ) NUTS (Verified Allergy, Mild, SORE TONGUE/MOUTH, 01/01/17) Aspirin (Verified Adverse Reaction, Intermediate, SEVERE UPSET STOMACH, 01/01/17) Erythromycin (Verified Adverse Reaction, Intermediate, ABD PAIN/CRAMPS/ DIZZINESS, 01/01/17) ABD PAIN/CRAMPS DIZZINESS NSAIDs (Verified Adverse Reaction, Mild, GI UPSET , 01/01/17) Tramadol (Verified Adverse Reaction, Unknown, abd pain, 01/01/17) Medications Current Inpatient Medications Current Inpatient Medications Medications (Trade) Dose Ordered Sig/Mark Route Start Time Stop Time Status Last Admin Dose Admin Sodium Chloride 1,000 ml @ 999 mls/hr Q1H1M IV 12/31/16 22:30 01/30/17 22:29 12/31/16 23:31 999 MLS/HR Ioversol (Optiray 320) 100 ml UD PRN IV 01/01/17 01:30 01/05/17 01:29 Ioversol (Optiray 320) 100 ml UD PRN IV 01/01/17 01:30 01/05/17 01:29 Vancomycin HCl 1000 mg/Sodium Chloride 270 ml @ 125 mls/hr NOW STAT IV 01/01/17 02:59 01/01/17 05:08 Review of Systems Review of Systems Constitutional: chills, fever Eyes: reports: no symptoms ENT: reports: no symptoms reported Cardiovascular: reports: no symptoms reported Respiratory: reports: no symptoms reported Gastrointestinal: abdominal pain, constipation Genitourinary - Female: reports: no symptoms Musculoskeletal: back pain Integumentary: no symptoms reported Neurologic: reports: no symptoms Psychiatric: reports: no symptoms Endocrine: no symptoms Physical Exam Physical Exam General Appearance: + WD/WN, No distress Ears, Nose, Throat: + normal ENT inspection Neck: No tracheal deviation, No tenderness Respiratory: No chest tenderness, No accessory muscle use, No decreased breath sounds Cardiovascular: + systolic murmur (over mitral area), No JVD, No abnormal rate Abdomen: + abnormal bowel sounds (hypoactive), + tenderness (diffusely but worse in lower abdomen), + guarding, + other (well healed lower incisions from hysterectomy, appy), No organomegaly Extremities: No abnormal range of motion, No edema Neurologic/Psychiatric: No decreased LOC, No motor deficit/weakness, No disorientation Skin Characteristics: No abnormal color, No cyanosis Diagnostics Labs Labs Results Past 24 Hours Test 12/31/16 23:20 12/31/16 23:25 01/01/17 00:05 Range/Units White Blood Count 15.66 4.8-10.8 K/uL Red Blood Count 3.60 4.2-5.4 M/uL Hemoglobin 9.3 12.0-16.0 g/dL Hematocrit 30.2 37-47 % Mean Corpuscular Volume 83.9 80-100 fL Mean Corpuscular Hemoglobin 25.8 25-34 pg Mean Corpuscular Hemoglobin Concent 30.8 32-36 g/dl Platelet Count 335 130-400 K/uL Mean Platelet Volume 10.7 7.4-10.4 fL Neutrophils (%) (Auto) 85.9 % Lymphocytes (%) (Auto) 8.5 % Monocytes (%) (Auto) 4.9 % Eosinophils (%) (Auto) 0.3 % Basophils (%) (Auto) 0.1 % Neutrophils # (Auto) 13.46 1.4-6.5 K/uL Lymphocytes # (Auto) 1.33 1.2-3.4 K/uL Monocytes # (Auto) 0.76 0.11-0.59 K/uL Eosinophils # (Auto) 0.05 0-0.5 K/uL Basophils # (Auto) 0.01 0-0.2 K/uL RDW Standard Deviation 51.6 36.4-46.3 fL RDW Coefficient of Variation 17.0 11.5-14.5 % Immature Granulocyte % (Auto) 0.3 % Immature Granulocyte # (Auto) 0.05 0.00-0.02 K/uL Sodium Level 136 136-145 mmol/L Potassium Level 4.3 3.5-5.1 mmol/L Chloride Level 101 98-107 mmol/L Carbon Dioxide Level 28 21-32 mmol/L Anion Gap 7.0 3-11 mmol/L Blood Urea Nitrogen 21 7-18 mg/dl Creatinine 1.20 0.60-1.20 mg/dl Est Creatinine Clear Calc Drug Dose 36.4 ml/min Estimated GFR () 49.1 Estimated GFR (Non- 42.4 BUN/Creatinine Ratio 17.4 10-20 Random Glucose 79 70-99 mg/dl Calcium Level 9.6 8.5-10.1 mg/dl Total Bilirubin 0.3 0.2-1 mg/dl Direct Bilirubin < 0.1 0-0.2 mg/dl Aspartate Amino Transf (AST/SGOT) 16 15-37 U/L Alanine Aminotransferase (ALT/SGPT) 14 12-78 U/L Alkaline Phosphatase 71 45-117 U/L Total Protein 7.3 6.4-8.2 gm/dl Albumin 3.4 3.4-5.0 gm/dl Bedside Lactic Acid Arterial 1.70 0.36-1.25 mmol/L Urine Color YELLOW Urine Appearance ERROR CLEAR Urine pH 7.5 4.5-7.5 Urine Specific [place] 1.022 1.000-1.030 Urine Protein NEG NEG Urine Glucose (UA) 3+ NEG Urine Ketones NEG NEG Urine Occult Blood NEG NEG Urine Nitrite NEG NEG Urine Bilirubin NEG NEG Urine Urobilinogen NEG NEG Urine Leukocyte Esterase NEG NEG Microbiology Results 12/31/16 Blood Culture, Received Pending 12/31/16 Blood Culture, Received Pending Lab Interpretation Lab Interpretation: labs were reviewed Diagnostic Radiology Diagnostic Radiology CT scan personally reviewed and shows free air over liver with multiple other foci of air in abdomen. There is a segment of inflamed small bowel in the pelvis. Impression Assessment and Plan Assessment and Plan 81 yr old woman with multiple other medical issues (diabetes, chronic mesenteric ischemia) who presents with abdominal pain, fever, leukocytosis and imaging findings of pneumoperitoneum. She is markedly tender with guarding on her examination. Explained my recommendation for exploratory laparotomy, possible bowel resection, possible ostomy. Risks of bleeding, infection, need for further procedures if vascular issue is found as the etiology, heart attack , all discussed. Consent signed. Will go to OR now.
[2017-01-01] MEDS ORDERED: BUPIVACAINE 0.5 % 5 MG/1 ML MPF 30ML VIAL ONE (04:29)
[2017-01-01] MEDS ORDERED: ATROPINE SULFATE 0.1 MG/ML 5ML SYR IV PRN (05:00)
[2017-01-01] MEDS ORDERED: MEPERIDINE HCL 25 MG/ML CARP IV PRN (05:00)
[2017-01-01] MEDS ORDERED: ONDANSETRON INJ 2 MG/ML 2 ML VIAL IV PRN (05:00)
[2017-01-01] MEDS ORDERED: EpHEDrine SULFATE INJ 50 MG/ML AMP IV PRN (05:00)
[2017-01-01] MEDS ORDERED: FENTANYL CITRATE INJ 50 MCG/1 ML 2 ML VIAL IV PRN (05:00)
[2017-01-01] MEDS ORDERED: LABETALOL HCL IV 5 MG/ML 20ML IV PRN (05:00)
[2017-01-01] MEDS ORDERED: HYDROmorphone INJ 1 MG/ML SYR IV PRN (05:00)
[2017-01-01] MEDS ORDERED: FENTANYL CITRATE INJ 50 MCG/1 ML 2 ML VIAL ONE ×2 (05:24→07:07)
--- NOTE | 2017-01-01 05:42 | DIAGNOSTIC IMAGING REPORT ---
CHEST ONE VIEW PORTABLE CLINICAL HISTORY: Evaluate Fever/Sepsis dyspnea COMPARISON STUDY: 08/16/2016 FINDINGS: The bones soft tissues and hemidiaphragms are normal. The cardiomediastinal silhouette is normal. The lungs are clear. The pulmonary vasculature is normal. Central catheter in superior vena cava. Chronic apical pleural thickening. IMPRESSION: Negative chest. The above report was generated using voice recognition software. It may contain grammatical, syntax or spelling errors. Electronically signed by: Lakhwinder Strange M.D. 01/01/2017 5:41 AM Dictated Date/Time: 01/01/2017 5:40 AM
[2017-01-01] MEDS ORDERED: ROCURONIUM BROMIDE 10 MG/ML 5 ML VIAL IV ONE (06:25)
[2017-01-01] MEDS ORDERED: EpHEDrine SULFATE 50MG/5ML SYR ONE (06:25)
[2017-01-01] MEDS ORDERED: LIDOCAINE HCL 2% 2 ML VIAL (20MG/ML) ONE (06:25)
[2017-01-01] MEDS ORDERED: PROPOFOL IV EMULSION 10 MG/ML 20 ML VIAL IV ONE (06:25)
[2017-01-01] MEDS ORDERED: GLYCOPYRROLATE INJ 0.2 MG/ML VIAL ONE (06:34)
[2017-01-01] MEDS ORDERED: SUCCINYLCHOLINE 100MG/5ML SYR IV ONE (06:34)
[2017-01-01] MEDS ORDERED: NEOSTIGMINE METHYLSULFATE 5 MG/5 ML SYR ONE (06:34)
--- NOTE | 2017-01-01 06:58 | [facility] Post Operative Brief Note ---
Immediate Operative Summary Operative Date Jan 01, 2017. Pre-Operative Diagnosis pneumoperitoneum Post-Operative Diagnosis enteritis involving terminal ileum with likely microperforation, adhesive disease in the pelvis Procedure(s) Performed Exploratory laparotomy, Lysis of adhesions Surgeon Dr. Mariama Grijalva Computer Software Engineer Surgeon(s) None Estimated Blood Loss 5 ml Findings evidence of adhesion of terminal ileum to the left pelvic area, distal to this there was an area of fibrinous exudate on a segment of terminal ileum (exudate was patchy and involved three adjacent areas). Terminal ileum did not have any areas of perforation noted. Remainder of bowel was normal except for severe constipation of sigmoid colon. Specimens Permanent Specimen A: Omental Nodule Drains none Anesthesia GET Complication(s) None Disposition Recovery Room / PACU
--- NOTE | 2017-01-01 07:06 | DIAGNOSTIC IMAGING REPORT ---
ABD/PELVIS IV CONTRAST ONLY CT DOSE: 596.12 mGy.cm HISTORY: Pain abd pain TECHNIQUE: Multiaxial CT images of the abdomen and pelvis were performed following the use of intravenous contrast. A dose lowering technique was utilized adhering to the principles of ALARA. COMPARISON STUDY: 10/14/2016. FINDINGS: mild dependent basilar atelectasis. Stable postoperative changes to the thoracolumbar spine. Free intraperitoneal air. Several vascular calcifications of the spleen. Pancreas appears unremarkable. No evidence for gastric distention. The kidneys enhance uniformly. The adrenal glands are unremarkable. Several somewhat thickened loops of small bowel in the left upper abdominal region. This is seen to a lesser extent involving the right lower quadrant. Mild chronic colonic diverticulosis. No evidence for acute diverticulitis. IMPRESSION: 1. Free intraperitoneal air. 2. Etiology/origin is unknown. 3. Mild scattered colonic diverticulosis. 4. Mild reactive small bowel ileus. The above report was generated using voice recognition software. It may contain grammatical, syntax or spelling errors. Electronically signed by: Lakhwinder Strange M.D. 01/01/2017 7:05 AM Dictated Date/Time: 01/01/2017 7:01 AM
[2017-01-01] MEDS ORDERED: HYDROmorphone INJ 2 MG/ML SYR/VIAL ONE (07:24)
--- NOTE | 2017-01-01 07:35 | Anesthesiology Progress Note ---
Anesthesia Post Op Note Date & Time Jan 01, 2017 at 07:35 Vital Signs Pain Intensity: 8 Vital Signs Past 12 Hours Date Time Temp Pulse Resp B/P (MAP) Pulse Ox O2 Delivery O2 Flow Rate FiO2 01/01/17 07:20 73 19 131/39 98 Oxymask 8 01/01/17 07:10 74 26 127/40 99 Oxymask 10 01/01/17 07:02 36.5 73 23 141/46 98 Oxymask 10 01/01/17 04:22 78 20 111/49 96 Nasal Cannula 2.0 01/01/17 02:47 81 20 127/47 98 Nasal Cannula 2.0 01/01/17 02:02 92 01/01/17 01:27 36.6 88 18 130/51 92 Nasal Cannula 2.0 12/31/16 23:36 96 Nasal Cannula 2.0 12/31/16 23:36 91 20 130/42 96 Nasal Cannula 2.0 12/31/16 23:25 93 Room Air 12/31/16 23:22 85 20 135/48 92 Room Air 12/31/16 22:27 87 12/31/16 22:21 38.0 87 20 144/47 93 Room Air Notes Mental Status: alert / awake / arousable, participated in evaluation Pt Amnestic to Procedure: Yes Nausea / Vomiting: adequately controlled Pain: adequately controlled Airway Patency, RR, SpO2: stable & adequate BP & HR: stable & adequate Hydration State: stable & adequate Anesthetic Complications: no major complications apparent
[2017-01-01] MEDS ORDERED: LORAZEPAM 2 MG/ML 1 ML VIAL IV PRN ×2 (08:15)
[2017-01-01] MEDS ORDERED: HydrALAZINE HCL 20 MG/ML VIAL IV PRN (08:15)
[2017-01-01] MEDS ORDERED: MoRPHine SULFATE 2 MG/ML CARP IV PRN (08:15)
--- NOTE | 2017-01-01 08:43 | OPERATIVE REPORT ---
DATE OF OPERATION: 01/01/2017 PREOPERATIVE DIAGNOSIS: Pneumoperitoneum. 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 OPERATIVE PROCEDURE: Exploratory laparotomy, lysis of adhesions. SURGEON: Dr. Mariama Grijalva. ANESTHESIA: General endotracheal anesthesia. ESTIMATED BLOOD LOSS: 5 mL. SPECIMENS: Omental nodule. COMPLICATIONS: None. OPERATIVE FINDINGS: There was evidence of adhesions from proximal terminal ileum into the pelvis. Once these were taken down there was a segment of distal terminal ileum which had fibrinous exudate that was patchy involving 3 separate areas. This area was examined multiple times as well as dunked under water and no evidence of any perforation could be seen. There was no gross contamination in the abdomen. The remainder of the small bowel and colon were normal with the exception of severe constipation involving the sigmoid colon. There did not appear any inflammation or evidence of perforation in the region around the stomach. INDICATIONS: Ms. Victoria is an 81-year-old woman who presented with lower abdominal pain. CT scan was notable for free air as well as inflamed small bowel involving the pelvis. She does have a history of chronic mesenteric ischemia. She had a leukocytosis and guarding. She was thus consented for exploratory laparotomy. OPERATION AND FINDINGS: PROCEDURE: The patient received Zosyn and vancomycin preoperatively. After the induction of general endotracheal anesthesia, she had placement with a Farnsworth catheter and sequential compression devices. Her abdomen was sterilely prepped and draped. A midline incision was made. This was carried down through the fascia and the peritoneum sharply entered. The initial inspection did not reveal any gross egress of free air or any gross contamination. The Bookwalter retractor was then placed for exposure. Initial inspection revealed evidence of an omental adhesion to the pelvis. This was taken down and the omental remnant tied with a Vicryl stitch. Then following this there was adhesion of the terminal ileum to the left lateral pelvis. This was a kink and this was sharply taken down. Distal to this we were then able to pull and free up a area of terminal ileum which was likely the CT scan findings. In this region there were 3 separate patchy areas of fibrinous exudate on the bowel; however, the bowel was pink, it was viable, it was peristalsing. Remainder of the small bowel was run and no additional lesions were noted. The abdomen was filled with fluid and the exudate milked. There was no evidence of any leakage or any air bubbles seen. The remainder of the abdomen and colon were inspected. There was evidence of severe constipation involving the sigmoid and left colon, but there was no evidence of any perforation. The area around the stomach appeared normal. Thus, the abdomen was again irrigated and decision was made to not resect this area of small bowel as I felt it would likely respond to antibiotics. The bowel was placed back in the peritoneal cavity. The omentum was placed over the bowel. In the course of doing this there was a nodule noted on the omentum. This was excised and sent for pathology. The fascia was then closed with a running 0 PDS suture over Wally. The Wally retractor was removed. Marcaine 0.5% 30 mL were injected into the incision for local anesthesia. The skin was closed with davey. She was awakened and taken to recovery in stable condition. I attest to the content of the Intraoperative Record and any orders documented therein. Any exception s are noted below.
[2017-01-01] MEDS: MoRPHine SULFATE 4 MG/ML 1 ML CARP\\VIAL IV PRN ×2 (09:07→13:26)
[2017-01-01 09:35] VITALS: BP 121/65; PULSE 77; TEMP 37; O2SAT 95; Ht 157.5 cm; Wt 82.4 kg
[2017-01-01] MEDS ORDERED: PIPERACILL/TAZOBAC CONSULT ACTIVE PRN (09:45)
[2017-01-01] MEDS ORDERED: DEXTROSE 50% 50 ML SYR IV PRN (10:00)
[2017-01-01] MEDS ORDERED: GLUCOSE 10 TABS/TUBE PO PRN (10:00)
[2017-01-01] MEDS ORDERED: GLUCAGON FOR INJ 1 MG VIAL SQ PRN (10:00)
[2017-01-01] MEDS ORDERED: GLUCOSE 40% GEL 15 GM TUBE PO PRN (10:00)
[2017-01-01] MEDS: INSULIN GLARGINE SOLOSTAR 100 UNITS/ML 3 ML PEN SC SCH ×2 (10:20→21:00)
[2017-01-01] MEDS: LEVOTHYROXINE SODIUM INJ 25 MCG in SYRINGE 0 ML IV SCH (10:21)
[2017-01-01] MEDS: SODIUM CHLORIDE 0.9% 1000ML 1,000 ML IV SCH ×2 (10:21→20:41)
[2017-01-01] MEDS: PIPERACILL/TAZOBAC IV 3.375 GM in DEXTROSE 5% 100ML 100 ML IV SCH ×2 (10:21→18:02)
[2017-01-01] MEDS: ACETAMINOPHEN IV 650 MG in EMPTY BAG 0 ML IV PRN (10:52)
[2017-01-01] MEDS ORDERED: NURSING VERBAL MED ORDER ONE (11:00)
[2017-01-01] MEDS ORDERED: INSULIN ASPART 100 UNITS/ML 3 ML PEN SC SCH (11:00)
[2017-01-01 11:10] LABS: INR 1.1 (0.9-1.1); PARTIAL THROMBOPLASTIN RATIO 1.2; PROTHROMBIN TIME (PATIENT) 11.3 SECONDS (9.0-12.0)
[2017-01-01 11:59] VITALS: BP 110/58; PULSE 82; TEMP 37; O2SAT 93
[2017-01-01] MEDS: INSULIN ASPART 100 UNITS/ML 3 ML PEN SC SCH ×2 (11:59→18:00)
[2017-01-01] MEDS: METOPROLOL TARTRATE 1 MG/ML VIAL IV. SCH ×2 (12:01→18:03)
--- NOTE | 2017-01-01 13:05 | History and Physical ---
History & Physical Date & Time of Service: Jan 01, 2017 at 12:59 Chief Complaint: Perforated Viscus Primary Care Physician: Brianna Beckett History of Present Illness This patient was seen in the postop recovery area after a request from surgery to admit the patient is a hospital. She was taken emergently to the operating room from the ER due to perforated viscus. According to Dr. Grijalva abdomen was not significantly inflamed. The patient was arousable and awake after the procedure complaining of some abdominal pain having no other complaints or problems. Past Medical/Surgical History Medical Problems: (1) COPD (chronic obstructive pulmonary disease) Status: Chronic (2) DM (diabetes mellitus) Status: Chronic Family History Breast cancer Diabetes mellitus Heart disease Lung cancer Social History Smoking Status: Former Smoker Smokeless Tobacco Use: No Drug Use: none Marital Status: Occupational Status: retired Immunizations History of Influenza Vaccine: Yes Influenza Vaccine Date: Jan 31, 2011 History of Tetanus Vaccine?: No History of Pneumococcal: No Pneumococcal Date: Feb 25, 2003 History of Hepatitis B Vaccine: No Multi-Drug Resistant Organisms History of MDRO: No Allergies Coded Allergies: Prochlorperazine (Verified Allergy, Severe, TONGUE SWELLS/"ALMOST ", ) NUTS (Verified Allergy, Mild, SORE TONGUE/MOUTH, 01/01/17) Aspirin (Verified Adverse Reaction, Intermediate, SEVERE UPSET STOMACH, 01/01/17) Erythromycin (Verified Adverse Reaction, Intermediate, ABD PAIN/CRAMPS/ DIZZINESS, 01/01/17) ABD PAIN/CRAMPS DIZZINESS NSAIDs (Verified Adverse Reaction, Mild, GI UPSET , 01/01/17) Tramadol (Verified Adverse Reaction, Unknown, abd pain, 01/01/17) Home Medications Scheduled Acetaminophen (Tylenol), 1 TAB PO BID Budesonide/Formoterol Fumarate (Symbicort 160/4.5 Inhaler ), 2 PUFFS INH BID Calcium (Calcium), 1 TAB PO BID Canagliflozin (Invokana), 100 MG PO QAM Cholecalciferol (Vitamin D3), 1 CAP PO DAILY Clopidogrel (Plavix), 75 MG PO DAILY Coenzyme Q10 (Ubidecarenone) (Coq10), 200 MG PO DAILY Docusate Sodium (Docusate Sodium), 100 MG PO DAILY Duloxetine Hcl (Cymbalta), 60 MG PO QAM Insulin Glargine (Lantus Solostar), 24 UNITS SC QAM Insulin Glargine (Lantus Solostar), 20 UNITS SC HS Insulin Lispro (Human) (Humalog Kwikpen), 10 UNITS SC WM Levothyroxine Sodium (Levo-T), 50 MCG PO QAM Lisinopril (Lisinopril), 5 MG PO DAILY Melatonin (Melatonin Maximum Strengt), 5 MG PO HS Metoprolol Succ (Toprol Xl) (Toprol-Xl), 50 MG PO QAM Montelukast Sod (Montelukast Sodium), 10 MG PO DAILY Pancrelipase (Lipase-Protease- (Creon), 2 CAP PO WM Pantoprazole (Protonix), 40 MG PO QAM Pregabalin (Lyrica), 50 MG PO BID Rosuvastatin Calcium (Crestor), 10 MG PO QAM Tiotropium [place] (Spiriva Respimat), 2 PUFFS INH QAM Scheduled PRN Acetaminophen (Tylenol), 2 TAB PO Q4H PRN for Pain or Fever Albuterol Sulfate (Proair Respiclick), 2 PUFFS INH Q6H PRN for Wheezing Docusate Sodium (Colace), 2 CAP PO Q24H PRN for Constipation Ipratropium-Albuterol (Duoneb), 1 TREATMENT INH QID PRN for SOB/Wheezing Loperamide Hcl (Imodium), 2 MG PO TID PRN for Diarrhea Ondansetron Hcl (Zofran), 8 MG PO Q8 PRN for Nausea Oxycodone/Acetaminophen 5MG/325MG (Percocet 5MG/325MG), 1 TABLET PO Q4H PRN for Pain Pancrelipase (Lipase-Protease- (Creon), 1 CAP PO DAILY PRN for SNACKS Miscellaneous Medications Insulin Lispro (Human) (Humalog), 1 DOSE SC Review of Systems ROS: well nourished well developed but feels weak and worn out after surgery No double vision blurry vision No problems with speech or swallowing No palpitations, chest pain or pressure No Wheezing or breathing issues Central and lower abdominal pain with mild nausea but no vomiting has had no recent diarrhea changes in appetite or weight No burning urine urine frequency or changes in color No focal joint pain or muscle pain No skin rashes or oral lesions No unusual bruising or bleeding Mild low back pain but no numbness or loss of strength No changes in memory or confusion Physical Exam Vital Signs Date Time Temp Pulse Resp B/P (MAP) Pulse Ox O2 Delivery O2 Flow Rate FiO2 01/01/17 12:01 82 110/58 01/01/17 11:59 37.0 82 18 110/58 (75) 93 Nasal Cannula 2.0 01/01/17 09:35 37.0 77 17 121/65 95 Nasal Cannula 3.0 01/01/17 08:35 78 18 116/46 96 Nasal Cannula 3 01/01/17 08:20 76 16 115/40 95 Nasal Cannula 3 01/01/17 08:05 78 16 107/34 94 Nasal Cannula 3 01/01/17 07:55 77 16 111/36 95 Oxymask 3 01/01/17 07:40 36.6 79 16 110/34 94 Oxymask 3 01/01/17 07:30 73 19 135/38 98 Oxymask 3 01/01/17 07:20 73 19 131/39 98 Oxymask 8 01/01/17 07:10 74 26 127/40 99 Oxymask 10 01/01/17 07:02 36.5 73 23 141/46 98 Oxymask 10 01/01/17 04:22 78 20 111/49 96 Nasal Cannula 2.0 01/01/17 02:47 81 20 127/47 98 Nasal Cannula 2.0 01/01/17 02:02 92 01/01/17 01:27 36.6 88 18 130/51 92 Nasal Cannula 2.0 12/31/16 23:36 96 Nasal Cannula 2.0 12/31/16 23:36 91 20 130/42 96 Nasal Cannula 2.0 12/31/16 23:25 93 Room Air 12/31/16 23:22 85 20 135/48 92 Room Air 12/31/16 22:27 87 12/31/16 22:21 38.0 87 20 144/47 93 Room Air General Appearance: WD/WN, + mild distress Head: normocephalic, atraumatic Eyes: PERRL, EOMI ENT: hearing grossly normal, pharynx normal Respiratory/Chest: chest non-tender, lungs clear, normal breath sounds Cardiovascular: regular rate, rhythm, no murmur Abdomen/GI: soft, + tenderness, + abnormal bowel sounds Back: no CVA tenderness, no muscle spasm Extremities/Musculoskelatal: no pedal edema, normal range of motion Neurologic/Psych: alert, oriented x 3 Skin: normal color, warm/dry, no rash Diagnostics Laboratory Results Results Past 24 Hours Test 12/31/16 23:20 12/31/16 23:25 01/01/17 00:05 01/01/17 07:27 Range/Units White Blood Count 15.66 4.8-10.8 K/uL Red Blood Count 3.60 4.2-5.4 M/uL Hemoglobin 9.3 12.0-16.0 g/dL Hematocrit 30.2 37-47 % Mean Corpuscular Volume 83.9 80-100 fL Mean Corpuscular Hemoglobin 25.8 25-34 pg Mean Corpuscular Hemoglobin Concent 30.8 32-36 g/dl Platelet Count 335 130-400 K/uL Mean Platelet Volume 10.7 7.4-10.4 fL Neutrophils (%) (Auto) 85.9 % Lymphocytes (%) (Auto) 8.5 % Monocytes (%) (Auto) 4.9 % Eosinophils (%) (Auto) 0.3 % Basophils (%) (Auto) 0.1 % Neutrophils # (Auto) 13.46 1.4-6.5 K/uL Lymphocytes # (Auto) 1.33 1.2-3.4 K/uL Monocytes # (Auto) 0.76 0.11-0.59 K/uL Eosinophils # (Auto) 0.05 0-0.5 K/uL Basophils # (Auto) 0.01 0-0.2 K/uL RDW Standard Deviation 51.6 36.4-46.3 fL RDW Coefficient of Variation 17.0 11.5-14.5 % Immature Granulocyte % (Auto) 0.3 % Immature Granulocyte # (Auto) 0.05 0.00-0.02 K/uL Sodium Level 136 136-145 mmol/L Potassium Level 4.3 3.5-5.1 mmol/L Chloride Level 101 98-107 mmol/L Carbon Dioxide Level 28 21-32 mmol/L Anion Gap 7.0 3-11 mmol/L Blood Urea Nitrogen 21 7-18 mg/dl Creatinine 1.20 0.60-1.20 mg/dl Est Creatinine Clear Calc Drug Dose 36.4 ml/min Estimated GFR () 49.1 Estimated GFR (Non- 42.4 BUN/Creatinine Ratio 17.4 10-20 Random Glucose 79 70-99 mg/dl Calcium Level 9.6 8.5-10.1 mg/dl Total Bilirubin 0.3 0.2-1 mg/dl Direct Bilirubin < 0.1 0-0.2 mg/dl Aspartate Amino Transf (AST/SGOT) 16 15-37 U/L Alanine Aminotransferase (ALT/SGPT) 14 12-78 U/L Alkaline Phosphatase 71 45-117 U/L Total Protein 7.3 6.4-8.2 gm/dl Albumin 3.4 3.4-5.0 gm/dl Bedside Lactic Acid Arterial 1.70 0.36-1.25 mmol/L Urine Color YELLOW Urine Appearance ERROR CLEAR Urine pH 7.5 4.5-7.5 Urine Specific [place] 1.022 1.000-1.030 Urine Protein NEG NEG Urine Glucose (UA) 3+ NEG Urine Ketones NEG NEG Urine Occult Blood NEG NEG Urine Nitrite NEG NEG Urine Bilirubin NEG NEG Urine Urobilinogen NEG NEG Urine Leukocyte Esterase NEG NEG Bedside Glucose 105 70-90 mg/dl Test 01/01/17 10:25 01/01/17 10:29 01/01/17 11:51 Range/Units Prothrombin Time 11.3 9.0-12.0 SECONDS Prothromb Time International Ratio 1.1 0.9-1.1 Activated Partial Thromboplast Time 29.9 21.0-31.0 SECONDS Partial Thromboplastin Ratio 1.2 Bedside Glucose 108 123 70-90 mg/dl Microbiology Results 12/31/16 Blood Culture, Received Pending 12/31/16 Blood Culture, Received Pending Diagnostic Radiology Perforated viscus 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 CXR normal Normal EKG Impression Assessment and Plan 81-year-old female taken urgently to the operating room for perforated viscus with a known history of diverticulosis For perforated viscus suspected to be from diverticuli patient will remain on Zosyn therapy surgery will continue to evaluate and advance diet as able Chronic respiratory failure/COPD patient is typically on Symbicort and Spiriva this will be changed to DuoNeb's and formoterol Regarding insulin requiring diabetes we'll reduce her basal rate by 50% continue with sliding scale hold oral medications Cardiovascular patiently typically takes oral metoprolol Crestor lisinopril to avoid beta jordyn withdrawal she'll be in telemetry unit given intravenous metoprolol until oral intake and be guaranteed likewise were holding Plavix in the perioperative period Hypothyroidism the patient's will receive intravenous Synthroid at 50% dosing Her Cymbalta is on hold and will be restarted when she takes orals next DVT prevention will begin heparin once hemostasis is achieved likely 24 hours postop Advanced Directives Existing Living Will: No Existing Power of Belt Cleaner: No VTE Prophylaxis VTE Risk Assessment Done? Y/N: Yes Risk Level: Moderate
[2017-01-01 15:15] VITALS: BP 115/60; PULSE 88; TEMP 37.3; O2SAT 95
[2017-01-01] MEDS ORDERED: MoRPHine SULFATE 4 MG/ML 1 ML CARP\\VIAL ONE (16:56)
[2017-01-01] MEDS ORDERED: HEPARIN SOD 5000 UNIT/0.5 ML CARP SQ SCH (18:00)
[2017-01-01 19:23] VITALS: BP 116/69; PULSE 83; TEMP 36.8; O2SAT 94
[2017-01-01 22:52] VITALS: TEMP 37.5
[2017-01-01] MEDS: MoRPHine SULFATE 2 MG/ML CARP IV PRN (23:31)
[2017-01-01 23:58] VITALS: BP 120/63; PULSE 98
[2017-01-02] VITALS (20 sets, daily range): BP systolic 122–175; BP diastolic 55–85; PULSE 78–98; TEMP 36.5–37.3; O2SAT 92–99
[2017-01-02] MEDS: PIPERACILL/TAZOBAC IV 3.375 GM in DEXTROSE 5% 100ML 100 ML IV SCH ×3 (01:53→17:48)
[2017-01-02] MEDS: MoRPHine SULFATE 2 MG/ML CARP IV PRN ×4 (02:51→21:09)
[2017-01-02] MEDS: ACETAMINOPHEN IV 650 MG in EMPTY BAG 0 ML IV PRN ×2 (04:45→05:58)
[2017-01-02 05:04] LABS: HEMATOCRIT 25.9 % (37-47); MEAN CELL VOLUME 84.4 fL (80-100); MEAN CORPUSCULAR HEMOGLOBIN 25.7 pg (25-34); MEAN CORPUSCULAR HGB CONC 30.5 g/dl (32-36); PLATELET COUNT 229 K/uL (130-400); RED BLOOD COUNT 3.07 M/uL (4.2-5.4); WHITE BLOOD COUNT 13.38 K/uL (4.8-10.8)
[2017-01-02 05:27] LABS: BUN/CREATININE RATIO 14.1 (10-20); CREATININE 0.97 mg/dl (0.60-1.20); POTASSIUM 4.1 mmol/L (3.5-5.1)
[2017-01-02] MEDS: INSULIN ASPART 100 UNITS/ML 3 ML PEN SC SCH ×5 (06:00→21:06)
[2017-01-02] MEDS: SODIUM CHLORIDE 0.9% 1000ML 1,000 ML IV SCH ×2 (06:01→17:49)
[2017-01-02] MEDS: METOPROLOL TARTRATE 1 MG/ML VIAL IV. SCH ×4 (06:06→17:51)
[2017-01-02] MEDS: LEVOTHYROXINE SODIUM INJ 25 MCG in SYRINGE 0 ML IV SCH (09:15)
[2017-01-02] MEDS: INSULIN GLARGINE SOLOSTAR 100 UNITS/ML 3 ML PEN SC SCH ×2 (09:17→21:07)
[2017-01-02] MEDS: HEPARIN SOD 5000 UNIT/0.5 ML CARP SQ SCH ×2 (09:51→21:08)
[2017-01-02] MEDS ORDERED: MINERAL OIL ENEMA 133 ML BTL PR ONE (10:00)
[2017-01-02] MEDS: ALBUT/IPRATROP 3MG/0.5MG NEB 3 ML VIAL INH PRN (10:02)
--- NOTE | 2017-01-02 10:03 | Surgery Progress Note ---
Surgery Progress Note Date of Service Jan 02, 2017. Subjective Post OP Day: 1 Pain level 5/10 across lower abdomen. No bowel movement in almost 5 days. No nausea or vomiting. Sitting in chair at bedside. Tried ambulating with a walker. Objective Vital Signs: Date Time Temp Pulse Resp B/P (MAP) Pulse Ox O2 Delivery O2 Flow Rate FiO2 01/02/17 07:51 36.8 85 19 124/73 (90) 96 Nasal Cannula 2.0 01/02/17 07:30 98 Nasal Cannula 3.0 01/02/17 06:06 85 124/58 01/02/17 04:00 97 Nasal Cannula 3.0 01/02/17 03:35 37.0 86 18 122/70 (87) 97 Nasal Cannula 3.0 01/02/17 00:00 95 Nasal Cannula 3.0 01/02/17 00:00 37.3 92 22 122/55 (77) 95 Nasal Cannula 3.0 01/02/17 00:00 98 120/63 01/01/17 23:58 98 120/63 (82) 01/01/17 22:52 37.5 01/01/17 20:00 Nasal Cannula 3.0 01/01/17 19:23 36.8 83 24 116/69 (85) 94 Nasal Cannula 3.0 01/01/17 18:03 87 01/01/17 16:00 Nasal Cannula 3.0 01/01/17 15:15 37.3 88 20 115/60 (78) 95 Nasal Cannula 2.0 01/01/17 12:01 82 110/58 01/01/17 12:00 Nasal Cannula 3.0 01/01/17 11:59 37.0 82 18 110/58 (75) 93 Nasal Cannula 2.0 General Appearance: WD/WN, no apparent distress Head: normocephalic, atraumatic Cardiovascular: regular rate, rhythm Abdomen: normal bowel sounds, non distended, soft, + tenderness (lower abdomen , more on left side, mild guarding) Incision(s): clean, dry, intact Laboratory Results: Results Past 24 Hours Test 01/01/17 10:25 01/01/17 10:29 01/01/17 11:51 01/01/17 18:03 Range/Units Prothrombin Time 11.3 9.0-12.0 SECONDS Prothromb Time International Ratio 1.1 0.9-1.1 Activated Partial Thromboplast Time 29.9 21.0-31.0 SECONDS Partial Thromboplastin Ratio 1.2 Bedside Glucose 108 123 86 70-90 mg/dl Test 01/01/17 21:20 01/02/17 00:11 01/02/17 00:46 01/02/17 04:51 Range/Units Bedside Glucose 83 99 97 70-90 mg/dl White Blood Count 13.38 4.8-10.8 K/uL Red Blood Count 3.07 4.2-5.4 M/uL Hemoglobin 7.9 12.0-16.0 g/dL Hematocrit 25.9 37-47 % Mean Corpuscular Volume 84.4 80-100 fL Mean Corpuscular Hemoglobin 25.7 25-34 pg Mean Corpuscular Hemoglobin Concent 30.5 32-36 g/dl RDW Standard Deviation 53.5 36.4-46.3 fL RDW Coefficient of Variation 17.3 11.5-14.5 % Platelet Count 229 130-400 K/uL Mean Platelet Volume 10.0 7.4-10.4 fL Sodium Level 140 136-145 mmol/L Potassium Level 4.1 3.5-5.1 mmol/L Chloride Level 108 98-107 mmol/L Carbon Dioxide Level 25 21-32 mmol/L Anion Gap 7.0 3-11 mmol/L Blood Urea Nitrogen 14 7-18 mg/dl Creatinine 0.97 0.60-1.20 mg/dl Est Creatinine Clear Calc Drug Dose 45.0 ml/min Estimated GFR () 63.5 Estimated GFR (Non- 54.8 BUN/Creatinine Ratio 14.1 10-20 Random Glucose 106 70-99 mg/dl Calcium Level 8.0 8.5-10.1 mg/dl Test 01/02/17 06:05 Range/Units Bedside Glucose 101 70-90 mg/dl Assessment & Plan POD# 1 exp lap for likely terminal ileitis with microperforation and severe constipation. Would d/c monzon. She has not had a bowel movement in a very long time - will try enema and miralax today. This should hopefully help with her pain. Keep on IV abx for the enteritis. D/c monzon. OK to start clear liquids today.
--- NOTE | 2017-01-02 14:16 | Progress Note ---
Subjective Date of Service: Jan 02, 2017. Subjective this pt is eating clear liquid diet, has no bowel movements but is going to try to get enema and suppository Problem List Medical Problems: (1) Acute generalized abdominal pain Status: Acute (2) Diffuse abdominal pain Status: Acute (3) Diverticulitis Status: Acute (4) Lower abdominal pain Status: Acute (5) Mesenteric ischemia Status: Acute (6) Nausea, vomiting, and diarrhea Status: Acute Review of Systems Constitutional: No fever, No chills Abdomen: + pain, + constipation Female : + problem reported (monzon to be reomved today), No dysuria, No urinary frequency Objective Vital Signs Date Time Temp Pulse Resp B/P (MAP) Pulse Ox O2 Delivery O2 Flow Rate FiO2 01/02/17 11:33 36.6 89 18 139/67 (91) 97 Nasal Cannula 2.0 01/02/17 11:16 86 96 01/02/17 10:05 88 18 96 Nasal Cannula 2.0 01/02/17 07:51 36.8 85 19 124/73 (90) 96 Nasal Cannula 2.0 01/02/17 07:30 98 Nasal Cannula 3.0 01/02/17 06:06 85 124/58 01/02/17 04:00 97 Nasal Cannula 3.0 01/02/17 03:35 37.0 86 18 122/70 (87) 97 Nasal Cannula 3.0 01/02/17 00:00 95 Nasal Cannula 3.0 01/02/17 00:00 37.3 92 22 122/55 (77) 95 Nasal Cannula 3.0 01/02/17 00:00 98 120/63 01/01/17 23:58 98 120/63 (82) 01/01/17 22:52 37.5 01/01/17 20:00 Nasal Cannula 3.0 01/01/17 19:23 36.8 83 24 116/69 (85) 94 Nasal Cannula 3.0 01/01/17 18:03 87 01/01/17 16:00 Nasal Cannula 3.0 01/01/17 15:15 37.3 88 20 115/60 (78) 95 Nasal Cannula 2.0 Physical Exam General Appearance: WD/WN, + mild distress Eyes: PERRL, EOMI Respiratory/Chest: chest non-tender, lungs clear Cardiovascular: regular rate, rhythm, no murmur Abdomen: soft, + abnormal bowel sounds, + distended, + tenderness Extremities: no pedal edema, no calf tenderness Neurologic/Psychiatric: alert, oriented x 3 Laboratory Results Last 24 Hours Test 01/01/17 18:03 01/01/17 21:20 01/02/17 00:11 01/02/17 00:46 Bedside Glucose 86 mg/dl 83 mg/dl 99 mg/dl 97 mg/dl Test 01/02/17 04:51 01/02/17 06:05 01/02/17 11:56 White Blood Count 13.38 K/uL Red Blood Count 3.07 M/uL Hemoglobin 7.9 g/dL Hematocrit 25.9 % Mean Corpuscular Volume 84.4 fL Mean Corpuscular Hemoglobin 25.7 pg Mean Corpuscular Hemoglobin Concent 30.5 g/dl RDW Standard Deviation 53.5 fL RDW Coefficient of Variation 17.3 % Platelet Count 229 K/uL Mean Platelet Volume 10.0 fL Sodium Level 140 mmol/L Potassium Level 4.1 mmol/L Chloride Level 108 mmol/L Carbon Dioxide Level 25 mmol/L Anion Gap 7.0 mmol/L Blood Urea Nitrogen 14 mg/dl Creatinine 0.97 mg/dl Est Creatinine Clear Calc Drug Dose 45.0 ml/min Estimated GFR () 63.5 Estimated GFR (Non- 54.8 BUN/Creatinine Ratio 14.1 Random Glucose 106 mg/dl Calcium Level 8.0 mg/dl Bedside Glucose 101 mg/dl 160 mg/dl Assessment and Plan 81-year-old female taken urgently to the operating room for perforated viscus with a known history of diverticulosis For perforated viscus suspected to be from diverticula patient will remain on Zosyn therapy surgery manage advancement diet as able, will continue IV meds until po intake is stable Chronic respiratory failure/COPD patient is typically on Symbicort and Spiriva this will be changed to DuoNeb's and formoterol Regarding insulin requiring diabetes we'll reduce her basal rate by 50% continue with sliding scale hold oral medications Cardiovascular patiently typically takes oral metoprolol Crestor lisinopril to avoid beta jordyn withdrawal she'll be in telemetry unit given intravenous metoprolol until oral intake and be guaranteed likewise were holding Plavix in the perioperative period Hypothyroidism the patient's will receive intravenous Synthroid at 50% dosing Her Cymbalta is on hold and will be restarted when she takes orals next DVT prevention will begin heparin once hemostasis is achieved likely 24 hours postop
[2017-01-02] MEDS: ONDANSETRON INJ 2 MG/ML 2 ML VIAL IV PRN ×2 (17:41→22:47)
[2017-01-03] VITALS (8 sets, daily range): BP systolic 149–169; BP diastolic 63–80; PULSE 79–86; TEMP 36.5–37.2; O2SAT 92–100
[2017-01-03] MEDS: METOPROLOL TARTRATE 1 MG/ML VIAL IV. SCH ×4 (01:13→18:22)
[2017-01-03] MEDS: PIPERACILL/TAZOBAC IV 3.375 GM in DEXTROSE 5% 100ML 100 ML IV SCH ×3 (02:34→18:01)
[2017-01-03] MEDS: SODIUM CHLORIDE 0.9% 1000ML 1,000 ML IV SCH ×3 (02:34→20:44)
[2017-01-03] MEDS: MoRPHine SULFATE 2 MG/ML CARP IV PRN ×4 (02:35→18:30)
[2017-01-03] MEDS: ACETAMINOPHEN IV 650 MG in EMPTY BAG 0 ML IV PRN ×2 (04:56→20:45)
[2017-01-03] MEDS ORDERED: NURSING DECISION MEDICATION ORDER SCH (05:00)
[2017-01-03 05:49] LABS: CREATININE 0.74 mg/dl (0.60-1.20)
[2017-01-03] MEDS: INSULIN ASPART 100 UNITS/ML 3 ML PEN SC SCH ×4 (07:00→20:34)
[2017-01-03] MEDS: POLYETHYLENE (MIRALAX) 17 GM PACK PO SCH (07:54)
[2017-01-03] MEDS: INSULIN GLARGINE SOLOSTAR 100 UNITS/ML 3 ML PEN SC SCH ×2 (08:00→20:33)
[2017-01-03] MEDS: HEPARIN SOD 5000 UNIT/0.5 ML CARP SQ SCH ×2 (08:00→20:34)
[2017-01-03] MEDS: ONDANSETRON INJ 2 MG/ML 2 ML VIAL IV PRN (08:12)
--- NOTE | 2017-01-03 09:13 | Clinical Documentation Query ---
CLINICAL DOCUMENTATION QUERY 81-y/o female with enteritis who underwent exlap for pneumoperitoneum In your clinical opinion is this patient being managed for: (x ) Early Sepsis treated with IVF's and IV antibiotics ( ) Not Agree ( ) Other explanation of clinical findings (Please Explain) ( ) Unable to determine (Please Define) ( ) Need to Discuss The medical record reflects the following clinical findings, treatment, and risk factors. Clinical Indicators: Fever 38.0, Leukocytosis 15.66, and periods of tachycardia 90's Treatment: IVF bolus, APAP, IV Vancomycin, IV Zosyn, Risk Factors: Age, ?perforated bowel, Please clarify and document your clinical opinion in the progress notes and discharge summary. Terms such as "probable", "suspected", "likely", "questionable", "possible", or "still to be ruled out" are acceptable. IF IN AGREEMENT, YOU MUST DOCUMENT ABOVE DIAGNOSTIC STATEMENT IN DAILY PROGRESS NOTES AND DISCHARGE SUMMARY. This document is not part of the patient's record. Thank You, Carlos Zuniga, RN [phone]
[2017-01-03] MEDS: LEVOTHYROXINE SODIUM INJ 25 MCG in SYRINGE 0 ML IV SCH (09:36)
--- NOTE | 2017-01-03 09:44 | Surgery Progress Note ---
Surgery Progress Note Date of Service Jan 03, 2017. Subjective Post OP Day: 2 + feeling well, + complaints (pain controlled), + flatus, + nausea, + diet ( clears), No bowel movement, No vomiting Objective Vital Signs: Date Time Temp Pulse Resp B/P (MAP) Pulse Ox O2 Delivery O2 Flow Rate FiO2 01/03/17 07:27 36.7 79 20 159/64 (95) 92 Nasal Cannula 2.0 01/03/17 06:20 77 157/73 01/03/17 04:15 36.7 86 20 157/73 (101) 96 Nasal Cannula 2.0 Humidified Oxygen 01/03/17 04:00 96 Nasal Cannula 2.0 01/03/17 01:13 86 146/87 01/03/17 00:31 36.6 83 20 149/66 (93) 96 Nasal Cannula 2.0 Humidified Oxygen 01/03/17 00:20 96 Nasal Cannula 2.0 01/02/17 21:15 37.1 87 18 175/75 95 2.0 01/02/17 20:15 36.6 90 18 160/76 98 2.0 01/02/17 20:00 98 Nasal Cannula 2.0 01/02/17 19:15 36.5 96 20 146/72 96 3.0 01/02/17 17:51 98 138/62 01/02/17 17:30 37.1 98 20 143/62 96 01/02/17 16:27 37.1 95 22 169/72 96 2.0 01/02/17 16:15 98 Nasal Cannula 3.0 01/02/17 15:45 37.1 88 20 141/71 98 2.0 01/02/17 15:40 37.1 86 24 141/71 (94) 99 Nasal Cannula 2.0 01/02/17 15:00 37.2 96 21 137/70 93 2.0 01/02/17 14:45 37.0 78 22 161/65 98 2.0 01/02/17 12:15 97 Nasal Cannula 3.0 01/02/17 12:00 88 141/71 01/02/17 11:33 36.6 89 18 139/67 (91) 97 Nasal Cannula 2.0 01/02/17 11:16 86 96 01/02/17 10:05 88 18 96 Nasal Cannula 2.0 General Appearance: WD/WN, no apparent distress Head: normocephalic, atraumatic Neck: trachea midline Respiratory/Chest: lungs clear Cardiovascular: regular rate, rhythm Abdomen: normal bowel sounds, non distended, soft, + tenderness (incisional) Incision(s): clean, dry, intact Extremities: non-tender, no calf tenderness Laboratory Results: Results Past 24 Hours Test 01/02/17 11:56 01/02/17 17:54 01/02/17 20:42 01/03/17 05:11 Range/Units Bedside Glucose 160 150 161 70-90 mg/dl Creatinine 0.74 0.60-1.20 mg/dl Est Creatinine Clear Calc Drug Dose 58.9 ml/min Estimated GFR () 88.1 Estimated GFR (Non- 76.0 Test 01/03/17 07:23 Range/Units Bedside Glucose 106 70-90 mg/dl Assessment & Plan s/p ex lap KELLY -IV abx -slow with diet, con't clears -ambulate -bowel regimen soon
[2017-01-03] MEDS ORDERED: TIOTROPIUM BROMIDE 5 PUFF/90 MCG INH INH ONE (18:31)
[2017-01-03] MEDS: BUDESONIDE/FORMOTEROL FUMARATE 160/4.5 60 PUFFS/INHALER INH SCH (20:31)
[2017-01-03] MEDS ORDERED: METOPROLOL TARTRATE 50 MG TAB PO SCH (21:00)
--- NOTE | 2017-01-03 21:06 | Progress Note ---
Subjective Date of Service: Jan 03, 2017. Subjective Pt evaluation today including: conversation w/ patient, conversation w/ family (daughter at bedside), physical exam, chart review, lab review, review of studies (recent CT, operative note), conversation w/ it systems analyst consultant (GI), review of inpatient medication list Pain: abdominal along w/ bloating PO Intake: tolerating clears Voiding: no voiding problems tele with PVCs, bigeminy, trigeminy but no NSV-T patient with +flatus no bowel movement even after enema last pm denies vomiting occasional nausea no cp or sob patient requests a consult with her [facility] GI Dr. Conner due to her bowels/ constipation Problem List Medical Problems: (1) Acute generalized abdominal pain Status: Acute (2) Diffuse abdominal pain Status: Acute (3) Diverticulitis Status: Acute (4) Lower abdominal pain Status: Acute (5) Mesenteric ischemia Status: Acute (6) Nausea, vomiting, and diarrhea Status: Acute Review of Systems Constitutional: No fever Respiratory: No cough, No shortness of breath Cardiac: No chest pain Abdomen: + pain, + nausea, No vomiting, No GI bleeding Objective Vital Signs Date Time Temp Pulse Resp B/P (MAP) Pulse Ox O2 Delivery O2 Flow Rate FiO2 01/03/17 18:22 107 169/79 01/03/17 16:00 Nasal Cannula 2.0 01/03/17 15:18 37.1 79 20 169/79 (109) 100 Nasal Cannula 2.0 01/03/17 12:32 36.5 79 19 161/63 (95) 98 Nasal Cannula 2.0 01/03/17 12:15 79 161/63 01/03/17 12:00 Nasal Cannula 2.0 01/03/17 08:00 Nasal Cannula 2.0 01/03/17 07:27 36.7 79 20 159/64 (95) 92 Nasal Cannula 2.0 01/03/17 06:20 77 157/73 01/03/17 04:15 36.7 86 20 157/73 (101) 96 Nasal Cannula 2.0 Humidified Oxygen 01/03/17 04:00 96 Nasal Cannula 2.0 01/03/17 01:13 86 146/87 01/03/17 00:31 36.6 83 20 149/66 (93) 96 Nasal Cannula 2.0 Humidified Oxygen 01/03/17 00:20 96 Nasal Cannula 2.0 01/02/17 21:15 37.1 87 18 175/75 95 2.0 Physical Exam General Appearance: no apparent distress, + obese ENT: pharynx normal Neck: no JVD Respiratory/Chest: lungs clear, no respiratory distress, no accessory muscle use, + decreased breath sounds (bases) Cardiovascular: regular rate, rhythm, no gallop, no murmur, + extra beats Abdomen: + abnormal bowel sounds (decreased), + distended, + tenderness (mild, incisional) Extremities: no pedal edema Neurologic/Psychiatric: alert, oriented x 3 Skin: + pertinent finding (abdominal incision clean ) Laboratory Results Last 24 Hours Test 01/03/17 05:11 01/03/17 07:23 01/03/17 10:55 01/03/17 15:56 Creatinine 0.74 mg/dl Est Creatinine Clear Calc Drug Dose 58.9 ml/min Estimated GFR () 88.1 Estimated GFR (Non- 76.0 Bedside Glucose 106 mg/dl 144 mg/dl 108 mg/dl Test 01/03/17 20:13 Bedside Glucose 122 mg/dl Assessment and Plan 81yo female - 1. POD #2, s/p ex lap for perforated viscus - no specific location of perforation found but she had evidence of terminal ileum inflammation. Cause of latter? ischemic? inflammatory? other? continue IV zosyn. defer management to gen surg 2. constipation - pt requesting GI consultation; has seen Dr. Conner in the past from [facility] - he has been consulted. 3. hypothyroidism - change IV synthroid to PO tomorrow. 4. COPD - restart symbicort & spiriva. Not in exacerbation. 5. depression - resume cymbalta. 6. acute blood loss anemia - repeat CBC in am. 7. T2DM - controlled with lantus/novolog. No changes today. 8. DVT proph - increase heparin to TID dosing. 9. HTN - change IV lopressor to PO. leave on tele 1 more night if stable in AM can d/c tele daughter updated PT & OT Continued [facility] stay due to: inadequate po fluid intake, ambulation difficulties , multiple IV medications needed Discharge planning: uncertain
--- NOTE | 2017-01-03 22:31 | GASTROINTESTINAL CONSULTATION ---
DATE OF CONSULTATION: 01/03/2017 REASON FOR EVALUATION: Perforated viscus. HISTORY OF PRESENT ILLNESS: The patient is an 81-year-old female who I have seen in the past for abdominal pain. 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 Mosher. Following that, she did relatively well until 2 days ago, when she presented with the acute onset of abdominal pain. In the ER, she was found to have free air in the abdomen and was taken to the operating room by Dr. Grijalva for an exploratory laparotomy. According to the operative note, the patient has had some adhesions in the ileal area which were lysed. It appeared to be somewhat inflamed, but did not require any bowel resection. There was no evidence of perforation there or anywhere through the bowel despite submersion of the bowel in liquid to see if there was any bubbling. The patient was closed and continues to do well. When she presented, her white count was significantly elevated and she also had a slightly elevated lactic acid level as well. She has been treated for diverticulitis in the past. Currently, the patient is on postop day 2 and tolerating clear liquids. PAST MEDICAL HISTORY: Remarkable for COPD and diabetes and breast cancer. FAMILY HISTORY: Positive for diabetes, breast cancer, heart disease and lung cancer. SOCIAL HISTORY: The patient is . She is retired. She is a former smoker, currently not smoking. MEDICATIONS: Per list. ALLERGIES: PROCHLORPERAZINE, ASPIRIN, ERYTHROMYCIN, NONSTEROIDALS, TRAMADOL AND NUTS. REVIEW OF SYSTEMS: Remarkable for shortness of breath, on nasal oxygen. PHYSICAL EXAMINATION: GENERAL: The patient appears overweight, but she is not breathing excessively, but she does have nasal oxygen on. ABDOMEN: Shows a bandage in the mid abdomen in the lower half. There is no leakage. IMPRESSION: The patient had a perforated viscus, which appeared to be minor. There was no obvious perforation found on exploratory laparotomy. She had some adhesions lysed in the ileum. She does have a prior history of diverticulitis and ischemic bowel requiring superior mesenteric artery stenting. At this point, the patient will be followed and diet advanced. We may follow her as an outpatient and do some evaluation of her small bowel. Obviously having recently had a perforation and ischemic bowel in the past, this is not the time to do any kind of endoscopic evaluation. We will continue to follow the patient and probably do more testing as an outpatient. Dr Quinn will be in to follow her tomorrow.
[2017-01-04] VITALS (13 sets, daily range): BP systolic 132–172; BP diastolic 52–75; PULSE 68–84; TEMP 36.4–36.9; O2SAT 94–98
[2017-01-04] MEDS: PIPERACILL/TAZOBAC IV 3.375 GM in DEXTROSE 5% 100ML 100 ML IV SCH ×3 (02:02→17:46)
[2017-01-04] MEDS: ALBUT/IPRATROP 3MG/0.5MG NEB 3 ML VIAL INH PRN (04:40)
[2017-01-04 04:57] LABS: MEAN CORPUSCULAR HEMOGLOBIN 26.3 pg (25-34); MEAN CORPUSCULAR HGB CONC 30.3 g/dl (32-36); MEAN PLATELET VOLUME 10.4 fL (7.4-10.4); PLATELET COUNT 256 K/uL (130-400); RED BLOOD COUNT 3.91 M/uL (4.2-5.4); WHITE BLOOD COUNT 9.13 K/uL (4.8-10.8)
[2017-01-04 05:14] LABS: BUN/CREATININE RATIO 13.7 (10-20); CALCIUM 8.6 mg/dl (8.5-10.1); CREATININE 0.69 mg/dl (0.60-1.20); MAGNESIUM 2.4 mg/dl (1.8-2.4); POTASSIUM 3.7 mmol/L (3.5-5.1)
[2017-01-04] MEDS: LEVOTHYROXINE 50 MCG TAB PO SCH (05:58)
[2017-01-04] MEDS: INSULIN ASPART 100 UNITS/ML 3 ML PEN SC SCH ×4 (07:00→21:51)
[2017-01-04] MEDS: HEPARIN SOD 5000 UNIT/0.5 ML CARP SQ SCH ×3 (07:48→21:55)
--- NOTE | 2017-01-04 08:18 | Surgery Progress Note ---
Surgery Progress Note Date of Service Jan 04, 2017. Subjective Feels "punk". Did not sleep well as she needed a breathing treatment overnight. Had two small bowel movements. Still with abdominal cramping at times. Objective Vital Signs: Date Time Temp Pulse Resp B/P (MAP) Pulse Ox O2 Delivery O2 Flow Rate FiO2 01/04/17 08:00 36.4 84 24 172/72 (105) 01/04/17 04:40 72 18 97 Nasal Cannula 2.0 01/04/17 04:15 36.9 73 21 168/75 (106) 98 Nasal Cannula 2.0 01/04/17 04:10 96 Nasal Cannula 2.0 01/04/17 00:15 96 Nasal Cannula 2.0 01/03/17 23:58 37.2 79 20 160/80 (106) 99 01/03/17 20:00 Nasal Cannula 2.0 01/03/17 18:22 107 169/79 01/03/17 16:00 Nasal Cannula 2.0 01/03/17 15:18 37.1 79 20 169/79 (109) 100 Nasal Cannula 2.0 01/03/17 12:32 36.5 79 19 161/63 (95) 98 Nasal Cannula 2.0 01/03/17 12:15 79 161/63 01/03/17 12:00 Nasal Cannula 2.0 General Appearance: WD/WN, no apparent distress Respiratory/Chest: no respiratory distress, + decreased breath sounds Cardiovascular: regular rate, rhythm Abdomen: normal bowel sounds, non distended, soft, + tenderness (mild) Incision(s): clean, dry, intact Laboratory Results: Results Past 24 Hours Test 01/03/17 10:55 01/03/17 15:56 01/03/17 20:13 01/04/17 03:35 Range/Units Bedside Glucose 144 108 122 88 70-90 mg/dl Test 01/04/17 04:16 01/04/17 06:48 Range/Units White Blood Count 9.13 4.8-10.8 K/uL Red Blood Count 3.91 4.2-5.4 M/uL Hemoglobin 10.3 12.0-16.0 g/dL Hematocrit 34.0 37-47 % Mean Corpuscular Volume 87.0 80-100 fL Mean Corpuscular Hemoglobin 26.3 25-34 pg Mean Corpuscular Hemoglobin Concent 30.3 32-36 g/dl RDW Standard Deviation 53.3 36.4-46.3 fL RDW Coefficient of Variation 16.9 11.5-14.5 % Platelet Count 256 130-400 K/uL Mean Platelet Volume 10.4 7.4-10.4 fL Sodium Level 143 136-145 mmol/L Potassium Level 3.7 3.5-5.1 mmol/L Chloride Level 111 98-107 mmol/L Carbon Dioxide Level 27 21-32 mmol/L Anion Gap 5.0 3-11 mmol/L Blood Urea Nitrogen 9 7-18 mg/dl Creatinine 0.69 0.60-1.20 mg/dl Est Creatinine Clear Calc Drug Dose 63.3 ml/min Estimated GFR () 94.6 Estimated GFR (Non- 81.6 BUN/Creatinine Ratio 13.7 10-20 Random Glucose 125 70-99 mg/dl Calcium Level 8.6 8.5-10.1 mg/dl Magnesium Level 2.4 1.8-2.4 mg/dl Bedside Glucose 115 70-90 mg/dl Assessment & Plan POD# 3 exp lap for likely terminal ileitis with microperforation and severe constipation. Continue laxatives - will add senna. . Keep on IV abx for the enteritis for 7-10 days total. Leukocytosis resolved. Advance to full liquids.
[2017-01-04] MEDS: ACETAMINOPHEN IV 650 MG in EMPTY BAG 0 ML IV PRN (08:56)
[2017-01-04] MEDS: ONDANSETRON INJ 2 MG/ML 2 ML VIAL IV PRN (08:56)
[2017-01-04] MEDS: INSULIN GLARGINE SOLOSTAR 100 UNITS/ML 3 ML PEN SC SCH ×2 (09:04→21:54)
[2017-01-04] MEDS: POLYETHYLENE (MIRALAX) 17 GM PACK PO SCH (09:06)
[2017-01-04] MEDS: DULOXETINE HCL 60 MG CAP PO SCH (09:06)
[2017-01-04] MEDS: BUDESONIDE/FORMOTEROL FUMARATE 160/4.5 60 PUFFS/INHALER INH SCH ×2 (09:07→21:52)
[2017-01-04] MEDS: TIOTROPIUM BROMIDE 5 PUFF/90 MCG INH INH SCH (09:08)
[2017-01-04] MEDS: MoRPHine SULFATE 4 MG/ML 1 ML CARP\\VIAL IV PRN ×2 (10:08→17:55)
[2017-01-04] MEDS: SENNA 8.6 MG TAB PO SCH (10:14)
[2017-01-04] MEDS: LISINOPRIL 5 MG TAB PO SCH (10:15)
[2017-01-04] MEDS: METOPROLOL TARTRATE 50 MG TAB PO SCH ×2 (10:15→21:52)
[2017-01-04] MEDS: SODIUM CHLORIDE 0.9% 1000ML 1,000 ML IV SCH ×2 (15:05→17:32)
--- NOTE | 2017-01-04 16:51 | GASTROENTEROLOGY PROGRESS NOTE ---
DATE: 01/04/2017 DATE: 01/04/2017 SUBJECTIVE: The patient is postoperative day #4 for exploratory laparoscopy for evidence of free air. No perforation was found at the time lysis of adhesions were performed. The patient also a history of an SMA stent in the past for ischemia. The patient is doing well overall, appears to be tolerating liquids. She has had minimal stool output, however. She is without significant abdominal pain, nausea or vomiting presently. The patient denies any melena or bright red blood per rectum, hematemesis or coffee ground emesis. VITAL SIGNS: Today 36.6, blood pressure 137/52, respirations 22, heart rate 68, O2 sat 94% on 2 liters. REVIEW OF SYSTEMS: Otherwise noncontributory. LABORATORY STUDIES: Today show white count down to 9.1 from 15.6, hemoglobin 10.3 and stable. Platelets are 256,000. The patient did receive 2 units of packed red blood cells. MEDICATIONS: Were reviewed and include Cymbalta, Lopressor, lisinopril, senna, heparin, levothyroxine, Symbicort, insulin, morphine for pain control, Zosyn, Zofran. PHYSICAL EXAMINATION: GENERAL: The patient is awake, alert and oriented x3, resting comfortably in bed playing cards accompanied by her family. LUNGS: Clear to auscultation. HEAD, EYES, EARS, NOSE, AND THROAT: Sclerae are anicteric. Conjunctivae moist. Oral mucosa moist. HEART: Normal S1, S2 with a systolic ejection murmur. ABDOMEN: Obese, nontender, without rebound or guarding. Bowel sounds are quiet but present. EXTREMITIES: With trace edema bilaterally. RECTAL: Deferred. IMPRESSION: The patient is status post exploratory laparoscopy for free air. Current diet is tolerated. She has not however had significant stool output. Would continue to observe response to this diet, ambulate as tolerated, and slowly advanced her diet as tolerated. We will continue to follow with you. Thank you for allowing us to participate in the patient's care.
--- NOTE | 2017-01-04 20:47 | DIAGNOSTIC IMAGING REPORT ---
CHEST 2 VIEWS ROUTINE CLINICAL HISTORY: Shortness of breath. Recent surgery. Evaluate for pulmonary edema. COMPARISON STUDY: Chest radiograph December 31, 2016. FINDINGS: A right subclavian [id number] and thoracolumbar spine fusion hardware is incidentally noted. There has been interval development of small bilateral pleural effusions. There is no pneumothorax. Mild bibasilar opacities favor atelectasis. Cardiomediastinal silhouette is stable. Mild interstitial thickening has developed. IMPRESSION: Interval development of small bilateral pleural effusions and interstitial thickening suggestive of mild pulmonary edema. Electronically signed by: Chris Ferrer M.D. 01/04/2017 8:46 PM Dictated Date/Time: 01/04/2017 8:44 PM
[2017-01-04] MEDS: MoRPHine SULFATE 2 MG/ML CARP IV PRN (21:53)
--- NOTE | 2017-01-05 00:15 | Progress Note ---
Subjective Date of Service: Jan 04, 2017. Subjective Pt evaluation today including: conversation w/ patient, physical exam, chart review, lab review, review of studies (cxr), review of inpatient medication list Pain: shoulders, back, abdomen PO Intake: tolerating full liquids Voiding: no voiding problems tele stable overnight - no dysrhythmia c/o worsening sob but this is a chronic issue; however, it may be worse than baseline denies cough denies chest pain +flatus and did pass a hard stool early this am Problem List Medical Problems: (1) Acute generalized abdominal pain Status: Acute (2) Diffuse abdominal pain Status: Acute (3) Diverticulitis Status: Acute (4) Lower abdominal pain Status: Acute (5) Mesenteric ischemia Status: Acute (6) Nausea, vomiting, and diarrhea Status: Acute Review of Systems Constitutional: No fever Respiratory: No cough Cardiac: No chest pain Abdomen: + pain, No vomiting Objective Vital Signs Date Time Temp Pulse Resp B/P (MAP) Pulse Ox O2 Delivery O2 Flow Rate FiO2 01/04/17 18:57 36.9 70 18 160/64 (96) 96 Nasal Cannula 2.0 Humidified Oxygen 01/04/17 16:30 97 Nasal Cannula 2.0 01/04/17 16:28 36.8 68 16 132/59 (83) 97 Nasal Cannula 2.0 01/04/17 16:00 95 Nasal Cannula 2.0 01/04/17 15:25 36.6 68 22 137/52 (80) 94 Nasal Cannula 2.0 Humidified Oxygen 01/04/17 12:00 96 Nasal Cannula 2.0 01/04/17 12:00 01/04/17 10:38 Nasal Cannula 2.0 01/04/17 08:00 36.4 84 24 172/72 (105) 01/04/17 08:00 97 Nasal Cannula 2.0 01/04/17 04:40 72 18 97 Nasal Cannula 2.0 01/04/17 04:15 36.9 73 21 168/75 (106) 98 Nasal Cannula 2.0 01/04/17 04:10 96 Nasal Cannula 2.0 01/04/17 00:15 96 Nasal Cannula 2.0 01/03/17 23:58 37.2 79 20 160/80 (106) 99 Physical Exam General Appearance: no apparent distress ENT: pharynx normal Neck: no JVD Respiratory/Chest: no respiratory distress, no accessory muscle use, + rales ( fine, bases) Cardiovascular: regular rate, rhythm, no gallop Abdomen: normal bowel sounds, non tender, soft, no organomegaly, + distended ( but not as distended as yesterday) Extremities: + pedal edema (trace b/l ) Neurologic/Psychiatric: alert, oriented x 3 Skin: + pertinent finding (dressings intact abdominal wall ) Laboratory Results Last 24 Hours Test 01/04/17 03:35 01/04/17 04:16 01/04/17 06:48 01/04/17 10:42 Bedside Glucose 88 mg/dl 115 mg/dl 151 mg/dl White Blood Count 9.13 K/uL Red Blood Count 3.91 M/uL Hemoglobin 10.3 g/dL Hematocrit 34.0 % Mean Corpuscular Volume 87.0 fL Mean Corpuscular Hemoglobin 26.3 pg Mean Corpuscular Hemoglobin Concent 30.3 g/dl RDW Standard Deviation 53.3 fL RDW Coefficient of Variation 16.9 % Platelet Count 256 K/uL Mean Platelet Volume 10.4 fL Sodium Level 143 mmol/L Potassium Level 3.7 mmol/L Chloride Level 111 mmol/L Carbon Dioxide Level 27 mmol/L Anion Gap 5.0 mmol/L Blood Urea Nitrogen 9 mg/dl Creatinine 0.69 mg/dl Est Creatinine Clear Calc Drug Dose 63.3 ml/min Estimated GFR () 94.6 Estimated GFR (Non- 81.6 BUN/Creatinine Ratio 13.7 Random Glucose 125 mg/dl Calcium Level 8.6 mg/dl Magnesium Level 2.4 mg/dl Test 01/04/17 16:52 01/04/17 19:58 Bedside Glucose 80 mg/dl 146 mg/dl Assessment and Plan 81yo female - 1. POD #3, s/p ex lap for perforated viscus - no specific location of perforation found but she had evidence of terminal ileum inflammation. Cause of latter? ischemic? inflammatory? other? continue IV zosyn. defer management to gen surg diet advancement per gen sugrg 2. constipation - improving slowly. Appreciate GI consult. Bowel regimen & ambulate. 3. hypothyroidism - cont synthroid. 4. COPD - cause of dyspnea? check cxr, r/o infiltrates 5. depression - resumed cymbalta. 6. acute blood loss anemia - repeat CBC today stable. 7. T2DM - controlled with lantus/novolog. No changes today. 8. DVT proph - heparin TID 9. HTN - uncontrolled; add back low-dose WILL 10. dyspnea - cxr obtained; may have element of diastolic CHF - plan for diuresis PT, OT evals progressing hopefully can move off tele by the am Continued [facility] stay due to: inadequate po fluid intake, ambulation difficulties , multiple IV medications needed Discharge planning: uncertain
[2017-01-05] MEDS: PIPERACILL/TAZOBAC IV 3.375 GM in DEXTROSE 5% 100ML 100 ML IV SCH ×3 (01:17→17:30)
[2017-01-05] MEDS: MoRPHine SULFATE 2 MG/ML CARP IV PRN ×3 (01:17→18:51)
[2017-01-05 02:11] VITALS: BP 148/67; PULSE 64; TEMP 36.7; O2SAT 95
[2017-01-05 02:15] VITALS: O2SAT 95
[2017-01-05 03:59] VITALS: BP 161/70; PULSE 96; TEMP 36.9; O2SAT 96
[2017-01-05] MEDS ORDERED: FUROSEMIDE INJ 20 MG in SYRINGE 0 ML IV ONE ×2 (06:00→17:00)
[2017-01-05] MEDS: HEPARIN SOD 5000 UNIT/0.5 ML CARP SQ SCH ×3 (06:26→21:55)
[2017-01-05] MEDS: POTASSIUM CHLORIDE 20 MEQ TABCR PO SCH (06:26)
[2017-01-05] MEDS: LEVOTHYROXINE 50 MCG TAB PO SCH (06:26)
[2017-01-05 06:29] LABS: BASO % 0.3 %; BASO ABS # 0.02 K/uL (0-0.2); COMPLETE YES; EOS % 6.9 %; HEMATOCRIT 32.4 % (37-47); IG% 0.4 %; LYMPH % 12.3 %; LYMPH ABS # 0.93 K/uL (1.2-3.4); MEAN CELL VOLUME 85.3 fL (80-100); MEAN CORPUSCULAR HEMOGLOBIN 26.3 pg (25-34); MEAN CORPUSCULAR HGB CONC 30.9 g/dl (32-36); MEAN PLATELET VOLUME 10.4 fL (7.4-10.4); MONO % 7.8 %; NEUT % 72.3 %; PLATELET COUNT 236 K/uL (130-400); WHITE BLOOD COUNT 7.58 K/uL (4.8-10.8)
[2017-01-05] MEDS: INSULIN ASPART 100 UNITS/ML 3 ML PEN SC SCH ×4 (06:30→21:54)
[2017-01-05 07:07] LABS: BUN/CREATININE RATIO 13.1 (10-20); CALCIUM 8.5 mg/dl (8.5-10.1); CREATININE 0.67 mg/dl (0.60-1.20); POTASSIUM 3.7 mmol/L (3.5-5.1)
[2017-01-05] MEDS: ONDANSETRON INJ 2 MG/ML 2 ML VIAL IV PRN ×2 (08:35→17:58)
[2017-01-05] MEDS: POLYETHYLENE (MIRALAX) 17 GM PACK PO SCH (09:06)
[2017-01-05] MEDS: TIOTROPIUM BROMIDE 5 PUFF/90 MCG INH INH SCH (09:07)
[2017-01-05] MEDS: SENNA 8.6 MG TAB PO SCH (09:07)
[2017-01-05] MEDS: BUDESONIDE/FORMOTEROL FUMARATE 160/4.5 60 PUFFS/INHALER INH SCH ×2 (09:07→21:53)
[2017-01-05] MEDS: DULOXETINE HCL 60 MG CAP PO SCH (09:07)
[2017-01-05] MEDS: LISINOPRIL 5 MG TAB PO SCH (09:08)
[2017-01-05] MEDS: METOPROLOL TARTRATE 50 MG TAB PO SCH ×2 (09:08→21:54)
[2017-01-05] MEDS: INSULIN GLARGINE SOLOSTAR 100 UNITS/ML 3 ML PEN SC SCH ×2 (09:11→21:55)
[2017-01-05 11:40] VITALS: BP 166/51; PULSE 61; TEMP 36.7; O2SAT 96
--- NOTE | 2017-01-05 12:12 | Surgery Progress Note ---
Surgery Progress Note Date of Service Jan 05, 2017. Subjective Post OP Day: 4 (s/p ex lap, lysis of adhesions) + SOB (chronic per patient), + flatus, + pain controlled, + nausea, + diet ( tolerating full liquids), No feeling well, No chest pain, No bowel movement (no bowel movement today or urge), No vomiting Feeling "blah", tired, didn't get much sleep last night Objective Vital Signs: Date Time Temp Pulse Resp B/P (MAP) Pulse Ox O2 Delivery O2 Flow Rate FiO2 01/05/17 11:40 36.7 61 16 166/51 (89) 96 Nasal Cannula 2.0 01/05/17 08:00 Nasal Cannula 2.0 01/05/17 03:59 36.9 96 18 161/70 (100) 96 2.0 01/05/17 02:15 95 Nasal Cannula 2.0 01/05/17 02:11 36.7 64 20 148/67 (94) 95 Nasal Cannula 2.0 01/04/17 23:58 36.9 72 18 145/63 (90) 94 Nasal Cannula 2.0 01/04/17 20:00 96 Nasal Cannula 2.0 01/04/17 18:57 36.9 70 18 160/64 (96) 96 Nasal Cannula 2.0 Humidified Oxygen 01/04/17 16:30 97 Nasal Cannula 2.0 01/04/17 16:28 36.8 68 16 132/59 (83) 97 Nasal Cannula 2.0 01/04/17 16:00 95 Nasal Cannula 2.0 01/04/17 15:25 36.6 68 22 137/52 (80) 94 Nasal Cannula 2.0 Humidified Oxygen General Appearance: no apparent distress, + obese Head: normocephalic, atraumatic Neck: trachea midline Respiratory/Chest: no respiratory distress, no accessory muscle use, + pertinent finding (nasal canula present) Abdomen: non distended, soft, + tenderness (appropriate post op, generalized and at incision site) Incision(s): clean, dry, intact, no erythema, no drainage, findings (davey present and intact) Laboratory Results: Results Past 24 Hours Test 01/04/17 16:52 01/04/17 19:58 01/05/17 06:11 01/05/17 08:01 Range/Units Bedside Glucose 80 146 109 70-90 mg/dl White Blood Count 7.58 4.8-10.8 K/uL Red Blood Count 3.80 4.2-5.4 M/uL Hemoglobin 10.0 12.0-16.0 g/dL Hematocrit 32.4 37-47 % Mean Corpuscular Volume 85.3 80-100 fL Mean Corpuscular Hemoglobin 26.3 25-34 pg Mean Corpuscular Hemoglobin Concent 30.9 32-36 g/dl Platelet Count 236 130-400 K/uL Mean Platelet Volume 10.4 7.4-10.4 fL Neutrophils (%) (Auto) 72.3 % Lymphocytes (%) (Auto) 12.3 % Monocytes (%) (Auto) 7.8 % Eosinophils (%) (Auto) 6.9 % Basophils (%) (Auto) 0.3 % Neutrophils # (Auto) 5.49 1.4-6.5 K/uL Lymphocytes # (Auto) 0.93 1.2-3.4 K/uL Monocytes # (Auto) 0.59 0.11-0.59 K/uL Eosinophils # (Auto) 0.52 0-0.5 K/uL Basophils # (Auto) 0.02 0-0.2 K/uL RDW Standard Deviation 53.0 36.4-46.3 fL RDW Coefficient of Variation 17.0 11.5-14.5 % Immature Granulocyte % (Auto) 0.4 % Immature Granulocyte # (Auto) 0.03 0.00-0.02 K/uL Sodium Level 142 136-145 mmol/L Potassium Level 3.7 3.5-5.1 mmol/L Chloride Level 109 98-107 mmol/L Carbon Dioxide Level 28 21-32 mmol/L Anion Gap 5.0 3-11 mmol/L Blood Urea Nitrogen 9 7-18 mg/dl Creatinine 0.67 0.60-1.20 mg/dl Est Creatinine Clear Calc Drug Dose 65.2 ml/min Estimated GFR () 95.5 Estimated GFR (Non- 82.4 BUN/Creatinine Ratio 13.1 10-20 Random Glucose 98 70-99 mg/dl Calcium Level 8.5 8.5-10.1 mg/dl Assessment & Plan POD # 4 s/p ex lap, lysis of adhesions, Terminal Ileitis and Microperforation Severe Constipation - vitals stable - No leukocytosis - no bowel movement today, still passing flatus, not much ambulation - pain controlled, improving daily Plan: Continue Pain management as needed Continue IV antibiotics for course of 7-10 days Encourage OOB to chair and ambulation Continue bowel regimen with Laxative and Senakot Continue Full liquids Rest of management per Medicine team Pt seen and examined. Still no significant bowel output although she is passing flatus. Will add dulcolax to laxative regimen. Await bowel function prior to advancing diet. She feels tired as her bed was moved at 1 am. Otherwise, leukocytosis has resolved. No fevers.
[2017-01-05 15:19] VITALS: BP 155/57; PULSE 65; TEMP 37.2; O2SAT 94
[2017-01-05 20:32] VITALS: BP 105/67; PULSE 68; TEMP 36.4; O2SAT 93
[2017-01-05] MEDS: MoRPHine SULFATE 4 MG/ML 1 ML CARP\\VIAL IV PRN (23:25)
[2017-01-06] VITALS (7 sets, daily range): BP systolic 135–179; BP diastolic 54–80; PULSE 59–85; TEMP 36.5–36.8; O2SAT 91–95
--- NOTE | 2017-01-06 00:04 | Progress Note ---
Subjective Date of Service: Jan 05, 2017. Subjective Pt evaluation today including: conversation w/ patient, physical exam, chart review, lab review Pain: abdomen but somewhat improved PO Intake: fair; tolerating full liquids, but appetite is not robust Voiding: no voiding problems tele stable overnight "I don't feel all that good today" got moved in the middle of the night to a new room, breathing is less than optimal, and despite passing flatus she has not had a good bowel movement Problem List Medical Problems: (1) Acute generalized abdominal pain Status: Acute (2) Diffuse abdominal pain Status: Acute (3) Diverticulitis Status: Acute (4) Lower abdominal pain Status: Acute (5) Mesenteric ischemia Status: Acute (6) Nausea, vomiting, and diarrhea Status: Acute Review of Systems Constitutional: No fever Respiratory: + dyspnea on exertion, No cough, No dyspnea at rest Cardiac: No chest pain Abdomen: + pain, + constipation, No nausea, No vomiting, No diarrhea Objective Vital Signs Date Time Temp Pulse Resp B/P (MAP) Pulse Ox O2 Delivery O2 Flow Rate FiO2 01/05/17 20:32 36.4 68 18 105/67 (80) 93 Nasal Cannula 2.0 01/05/17 16:05 Nasal Cannula 2.0 01/05/17 15:19 37.2 65 18 155/57 (89) 94 Nasal Cannula 2.0 01/05/17 12:40 Nasal Cannula 2.0 01/05/17 11:40 36.7 61 16 166/51 (89) 96 Nasal Cannula 2.0 01/05/17 08:00 Nasal Cannula 2.0 01/05/17 03:59 36.9 96 18 161/70 (100) 96 2.0 01/05/17 02:15 95 Nasal Cannula 2.0 01/05/17 02:11 36.7 64 20 148/67 (94) 95 Nasal Cannula 2.0 01/04/17 23:58 36.9 72 18 145/63 (90) 94 Nasal Cannula 2.0 Physical Exam General Appearance: no apparent distress ENT: pharynx normal Neck: no JVD Respiratory/Chest: no respiratory distress, no accessory muscle use, + decreased breath sounds (bases), + crackles (slight - bases) Cardiovascular: regular rate, rhythm, no gallop Abdomen: normal bowel sounds, no organomegaly, + distended (but improved from prior exam), + tenderness (mild, near midline incision) Extremities: + pedal edema (1+ b/l ) Neurologic/Psychiatric: alert, normal mood/affect, oriented x 3 Skin: + pertinent finding (midline dressing on abdominal wall intact/clean) Laboratory Results Last 24 Hours Test 01/05/17 06:11 01/05/17 08:01 01/05/17 12:26 01/05/17 16:50 White Blood Count 7.58 K/uL Red Blood Count 3.80 M/uL Hemoglobin 10.0 g/dL Hematocrit 32.4 % Mean Corpuscular Volume 85.3 fL Mean Corpuscular Hemoglobin 26.3 pg Mean Corpuscular Hemoglobin Concent 30.9 g/dl Platelet Count 236 K/uL Mean Platelet Volume 10.4 fL Neutrophils (%) (Auto) 72.3 % Lymphocytes (%) (Auto) 12.3 % Monocytes (%) (Auto) 7.8 % Eosinophils (%) (Auto) 6.9 % Basophils (%) (Auto) 0.3 % Neutrophils # (Auto) 5.49 K/uL Lymphocytes # (Auto) 0.93 K/uL Monocytes # (Auto) 0.59 K/uL Eosinophils # (Auto) 0.52 K/uL Basophils # (Auto) 0.02 K/uL RDW Standard Deviation 53.0 fL RDW Coefficient of Variation 17.0 % Immature Granulocyte % (Auto) 0.4 % Immature Granulocyte # (Auto) 0.03 K/uL Sodium Level 142 mmol/L Potassium Level 3.7 mmol/L Chloride Level 109 mmol/L Carbon Dioxide Level 28 mmol/L Anion Gap 5.0 mmol/L Blood Urea Nitrogen 9 mg/dl Creatinine 0.67 mg/dl Est Creatinine Clear Calc Drug Dose 65.2 ml/min Estimated GFR () 95.5 Estimated GFR (Non- 82.4 BUN/Creatinine Ratio 13.1 Random Glucose 98 mg/dl Calcium Level 8.5 mg/dl Bedside Glucose 109 mg/dl 125 mg/dl 156 mg/dl Assessment and Plan 81yo female - 1. POD #4, s/p ex lap for perforated viscus - no specific location of perforation found but she had evidence of terminal ileum inflammation. Cause of latter? ischemic? inflammatory? other? pathology without specific etiology continue IV zosyn. defer management to gen surg diet advancement per gen surg 2. constipation - continue Bowel regimen and ambulate. appreciate GI and gen surg assistance 3. hypothyroidism - cont synthroid. 4. COPD - stable, continue normal inhalers. 5. depression - resumed cymbalta. 6. acute blood loss anemia - stable. 7. T2DM - controlled with lantus/novolog. 8. DVT proph - heparin TID 9. HTN - uncontrolled despite addition of home meds. Adjust again in AM if still high. 10. acute diastolic CHF - lasix BID today and re-eval tomorrow. repeat labs in am PT, OT evals appreciated progressing can d/c tele Continued [facility] stay due to: inadequate po fluid intake, ambulation difficulties , multiple IV medications needed Discharge planning: uncertain
[2017-01-06] MEDS: PIPERACILL/TAZOBAC IV 3.375 GM in DEXTROSE 5% 100ML 100 ML IV SCH ×3 (01:57→18:28)
[2017-01-06] MEDS: MoRPHine SULFATE 2 MG/ML CARP IV PRN ×3 (05:22→18:41)
[2017-01-06 06:04] LABS: BUN/CREATININE RATIO 13.4 (10-20); CALCIUM 9.1 mg/dl (8.5-10.1); CREATININE 0.71 mg/dl (0.60-1.20); MAGNESIUM 2.1 mg/dl (1.8-2.4); POTASSIUM 3.5 mmol/L (3.5-5.1)
[2017-01-06] MEDS: LEVOTHYROXINE 50 MCG TAB PO SCH (06:19)
[2017-01-06] MEDS: HEPARIN SOD 5000 UNIT/0.5 ML CARP SQ SCH ×3 (06:19→21:02)
[2017-01-06] MEDS: POTASSIUM CHLORIDE 20 MEQ TABCR PO SCH (06:19)
[2017-01-06] MEDS: INSULIN ASPART 100 UNITS/ML 3 ML PEN SC SCH ×4 (08:10→21:03)
[2017-01-06] MEDS ORDERED: FUROSEMIDE INJ 20 MG in SYRINGE 0 ML IV ONE (08:15)
[2017-01-06] MEDS: SENNA 8.6 MG TAB PO SCH (08:25)
[2017-01-06] MEDS: METOPROLOL TARTRATE 50 MG TAB PO SCH ×2 (08:25→20:54)
[2017-01-06] MEDS: POLYETHYLENE (MIRALAX) 17 GM PACK PO SCH (08:25)
[2017-01-06] MEDS: LISINOPRIL 5 MG TAB PO SCH (08:25)
[2017-01-06] MEDS: DULOXETINE HCL 60 MG CAP PO SCH (08:25)
[2017-01-06] MEDS: TIOTROPIUM BROMIDE 5 PUFF/90 MCG INH INH SCH (08:26)
[2017-01-06] MEDS: BUDESONIDE/FORMOTEROL FUMARATE 160/4.5 60 PUFFS/INHALER INH SCH ×2 (08:26→20:56)
[2017-01-06] MEDS: INSULIN GLARGINE SOLOSTAR 100 UNITS/ML 3 ML PEN SC SCH ×2 (08:30→21:03)
[2017-01-06] MEDS: ONDANSETRON INJ 2 MG/ML 2 ML VIAL IV PRN (08:31)
[2017-01-06] MEDS ORDERED: BISACODYL 5 MG TABEC PO SCH (09:00)
[2017-01-06] MEDS ORDERED: LISINOPRIL 5 MG TAB PO ONE (09:30)
--- NOTE | 2017-01-06 11:25 | Surgery Progress Note ---
Surgery Progress Note Date of Service Jan 06, 2017. Subjective Post OP Day: 5 when asked how she is feeling, she responds with a "not feeling so well but slightly better than yesterday" Has not been walking hallways Has not been out of bed much No vomiting, has had nausea, Zofran helped Tolerating full liquids Passing flatus, no bowel movement. Had the urge this morning but nothing happened. Objective Vital Signs: Date Time Temp Pulse Resp B/P (MAP) Pulse Ox O2 Delivery O2 Flow Rate FiO2 01/06/17 08:00 Nasal Cannula 2.0 01/06/17 07:30 36.8 71 16 179/62 (101) 95 Nasal Cannula 2.0 01/06/17 05:03 36.6 85 18 144/ (48) 91 Room Air 2.0 01/06/17 00:07 36.8 61 20 147/68 (94) 93 2.0 01/05/17 23:50 Nasal Cannula 2.0 01/05/17 20:32 36.4 68 18 105/67 (80) 93 Nasal Cannula 2.0 01/05/17 16:05 Nasal Cannula 2.0 01/05/17 15:19 37.2 65 18 155/57 (89) 94 Nasal Cannula 2.0 01/05/17 12:40 Nasal Cannula 2.0 01/05/17 11:40 36.7 61 16 166/51 (89) 96 Nasal Cannula 2.0 General Appearance: no apparent distress, + obese Head: normocephalic, atraumatic Neck: trachea midline Respiratory/Chest: no respiratory distress, no accessory muscle use Abdomen: non distended, soft, + tenderness (appropriate post op at incision site) Incision(s): clean, dry, intact, no drainage, erythema (slight erythema, no induration or fluctuance), ecchymosis (mild) Laboratory Results: Results Past 24 Hours Test 01/05/17 12:26 01/05/17 16:50 01/05/17 21:50 01/06/17 05:26 Range/Units Bedside Glucose 125 156 130 70-90 mg/dl Sodium Level 143 136-145 mmol/L Potassium Level 3.5 3.5-5.1 mmol/L Chloride Level 107 98-107 mmol/L Carbon Dioxide Level 32 21-32 mmol/L Anion Gap 4.0 3-11 mmol/L Blood Urea Nitrogen 10 7-18 mg/dl Creatinine 0.71 0.60-1.20 mg/dl Est Creatinine Clear Calc Drug Dose 61.5 ml/min Estimated GFR () 92.6 Estimated GFR (Non- 79.9 BUN/Creatinine Ratio 13.4 10-20 Random Glucose 104 70-99 mg/dl Calcium Level 9.1 8.5-10.1 mg/dl Magnesium Level 2.1 1.8-2.4 mg/dl Test 01/06/17 07:48 Range/Units Bedside Glucose 101 70-90 mg/dl Assessment & Plan POD # 5 s/p ex lap, lysis of adhesions, Terminal Ileitis and Microperforation Severe Constipation - vitals stable - No leukocytosis - no bowel movement today, still passing flatus, not ambulating - pain controlled, improving daily Plan: Continue Pain management as needed Continue IV antibiotics for course of 7-10 days Encourage OOB to chair and ambulation Continue bowel regimen with Laxative and Senakot and now PO Dulcolax Continue Full liquids Rest of management per Medicine team Pt seen and examined. Passing flatus but still no bowel movement. Will try soap suds enemas in addition to miralax,dulcolax, and senna. If no result, consider magnesium citrate. OK to advance diet.
[2017-01-06] MEDS: SOAP SUDS ENEMA PR SCH (17:22)
[2017-01-06] MEDS: BISACODYL 5 MG TABEC PO SCH (20:59)
--- NOTE | 2017-01-06 21:55 | Progress Note ---
Subjective Date of Service: Jan 06, 2017. Subjective Pt evaluation today including: conversation w/ patient, physical exam, chart review, lab review Pain: mild abdominal but improved PO Intake: fair Voiding: no voiding problems tele stable overnight refused 2nd dose of lasix last pm, and then again this am she is concerned about amount of voiding due to the lasix refusing monzon feeling down about lack of progress staff report no other issues +flatus but still no BM Problem List Medical Problems: (1) Acute generalized abdominal pain Status: Acute (2) Diffuse abdominal pain Status: Acute (3) Diverticulitis Status: Acute (4) Lower abdominal pain Status: Acute (5) Mesenteric ischemia Status: Acute (6) Nausea, vomiting, and diarrhea Status: Acute Review of Systems Constitutional: No fever Respiratory: No cough Cardiac: No chest pain Abdomen: + pain, No diarrhea Objective Vital Signs Date Time Temp Pulse Resp B/P (MAP) Pulse Ox O2 Delivery O2 Flow Rate FiO2 01/06/17 19:28 69 18 162/54 (90) 94 Nasal Cannula 2.0 01/06/17 16:00 Nasal Cannula 2.0 01/06/17 15:52 Nasal Cannula 01/06/17 15:47 36.7 66 18 158/76 (103) 95 Nasal Cannula 01/06/17 11:22 36.8 59 16 135/65 (88) 93 Nasal Cannula 3.0 01/06/17 08:00 Nasal Cannula 2.0 01/06/17 07:30 36.8 71 16 179/62 (101) 95 Nasal Cannula 2.0 01/06/17 05:03 36.6 85 18 144/ (48) 91 Room Air 2.0 01/06/17 00:07 36.8 61 20 147/68 (94) 93 2.0 01/05/17 23:50 Nasal Cannula 2.0 Physical Exam General Appearance: no apparent distress ENT: pharynx normal Neck: + JVD (mild) Respiratory/Chest: no respiratory distress, no accessory muscle use, + decreased breath sounds (bases with mild rales) Cardiovascular: regular rate, rhythm, no gallop, no murmur Abdomen: non tender, + abnormal bowel sounds (slightly decreased), + distended (but less than 01/05/17) Extremities: + pedal edema (1+ b/l ) Neurologic/Psychiatric: alert, oriented x 3 Skin: + pertinent finding (abdominal incision clean, davey intact) Laboratory Results Last 24 Hours Test 01/06/17 05:26 01/06/17 07:48 01/06/17 11:36 01/06/17 16:07 Sodium Level 143 mmol/L Potassium Level 3.5 mmol/L Chloride Level 107 mmol/L Carbon Dioxide Level 32 mmol/L Anion Gap 4.0 mmol/L Blood Urea Nitrogen 10 mg/dl Creatinine 0.71 mg/dl Est Creatinine Clear Calc Drug Dose 61.5 ml/min Estimated GFR () 92.6 Estimated GFR (Non- 79.9 BUN/Creatinine Ratio 13.4 Random Glucose 104 mg/dl Calcium Level 9.1 mg/dl Magnesium Level 2.1 mg/dl Bedside Glucose 101 mg/dl 131 mg/dl 144 mg/dl Assessment and Plan 81yo female - 1. POD #5, s/p ex lap for perforated viscus - no specific location of perforation found but she had evidence of terminal ileum inflammation. Cause of latter? ischemic? pathology without specific etiology continue IV zosyn. day #6 of such. surgery recommending 7-10 days of such. defer management to gen surg diet advancement per gen surg 2. constipation - continue Bowel regimen and ambulate. appreciate GI and gen surg assistance on multiple meds for this agree w/ enema today 3. hypothyroidism - cont synthroid. 4. COPD - stable, continue normal inhalers. 5. depression - resumed cymbalta. 6. acute blood loss anemia - stable H/H. 7. T2DM - controlled with lantus/novolog. 8. DVT proph - heparin TID 9. HTN - uncontrolled despite addition of home meds. Double lisinopril to 10mg daily. 10. acute diastolic CHF - I encouraged her to take the lasix but she again refused. I discussed with her that she will continue to have an O2 requirement without proper diuresis which will further delay her progress. PT, OT evals appreciated poor progress Continued [facility] stay due to: inadequate po fluid intake, ambulation difficulties , multiple IV medications needed Discharge planning: uncertain
[2017-01-06] MEDS: MoRPHine SULFATE 4 MG/ML 1 ML CARP\\VIAL IV PRN (23:16)
[2017-01-07] MEDS: MoRPHine SULFATE 2 MG/ML CARP IV PRN ×3 (01:35→14:43)
[2017-01-07] MEDS: PIPERACILL/TAZOBAC IV 3.375 GM in DEXTROSE 5% 100ML 100 ML IV SCH ×3 (01:35→17:47)
[2017-01-07] MEDS: MoRPHine SULFATE 4 MG/ML 1 ML CARP\\VIAL IV PRN (04:00)
[2017-01-07 06:37] LABS: CALCIUM 8.7 mg/dl (8.5-10.1); CREATININE 0.79 mg/dl (0.60-1.20); POTASSIUM 3.8 mmol/L (3.5-5.1)
[2017-01-07] MEDS: HEPARIN SOD 5000 UNIT/0.5 ML CARP SQ SCH ×3 (06:39→20:42)
[2017-01-07] MEDS: LEVOTHYROXINE 50 MCG TAB PO SCH (06:40)
[2017-01-07] MEDS: POTASSIUM CHLORIDE 20 MEQ TABCR PO SCH (06:40)
[2017-01-07 07:28] VITALS: BP 162/72; PULSE 71; TEMP 36.5; O2SAT 93
[2017-01-07] MEDS: SOAP SUDS ENEMA PR SCH ×3 (08:00→15:45)
[2017-01-07] MEDS: METOPROLOL TARTRATE 50 MG TAB PO SCH ×2 (08:56→20:52)
[2017-01-07] MEDS: BUDESONIDE/FORMOTEROL FUMARATE 160/4.5 60 PUFFS/INHALER INH SCH ×2 (08:56→20:45)
[2017-01-07] MEDS: DULOXETINE HCL 60 MG CAP PO SCH (08:57)
[2017-01-07] MEDS: SENNA 8.6 MG TAB PO SCH (08:57)
[2017-01-07] MEDS: TIOTROPIUM BROMIDE 5 PUFF/90 MCG INH INH SCH (08:57)
[2017-01-07] MEDS: LISINOPRIL 10 MG TAB PO SCH (08:57)
[2017-01-07] MEDS: POLYETHYLENE (MIRALAX) 17 GM PACK PO SCH (08:58)
[2017-01-07] MEDS: BISACODYL 5 MG TABEC PO SCH ×2 (09:03→20:54)
[2017-01-07] MEDS: ONDANSETRON INJ 2 MG/ML 2 ML VIAL IV PRN (09:03)
[2017-01-07] MEDS: INSULIN ASPART 100 UNITS/ML 3 ML PEN SC SCH ×4 (09:10→20:41)
[2017-01-07] MEDS: INSULIN GLARGINE SOLOSTAR 100 UNITS/ML 3 ML PEN SC SCH ×2 (09:30→20:42)
[2017-01-07 09:36] VITALS: O2SAT 94
[2017-01-07] MEDS: FUROSEMIDE 40 MG TAB PO SCH (12:01)
[2017-01-07] MEDS: MILK AND MOLASSES ENEMA PR SCH ×3 (14:00→20:38)
[2017-01-07 15:40] VITALS: BP 114/46; PULSE 66; TEMP 37; O2SAT 92
[2017-01-07 16:00] VITALS: O2SAT 85
--- NOTE | 2017-01-07 16:13 | Surgery Progress Note ---
Surgery Progress Note Date of Service Jan 07, 2017. Subjective Post OP Day: POD # 6 + feeling well, + flatus, + pain controlled, + nausea, + diet (tolerating low fiber diet), No bowel movement, No vomiting per nursing documentation refused soap suds enema, per patient she never was offered. Objective Vital Signs: Date Time Temp Pulse Resp B/P (MAP) Pulse Ox O2 Delivery O2 Flow Rate FiO2 01/07/17 15:40 37.0 66 18 114/46 (68) 92 Humidified Oxygen 2.0 01/07/17 09:36 94 Nasal Cannula 2.0 01/07/17 07:28 36.5 71 18 162/72 (102) 93 Nasal Cannula 2.0 01/07/17 00:00 Nasal Cannula 2.0 01/06/17 23:11 36.5 66 18 154/80 (104) 94 Nasal Cannula 2.0 01/06/17 19:28 69 18 162/54 (90) 94 Nasal Cannula 2.0 General Appearance: WD/WN, no apparent distress Head: normocephalic, atraumatic Neck: trachea midline Respiratory/Chest: no respiratory distress, no accessory muscle use Abdomen: non distended, soft, + tenderness (appropriate post op, improving), + pertinent finding (davey intact) Incision(s): clean, dry, intact, no erythema, no drainage, ecchymosis Laboratory Results: Results Past 24 Hours Test 01/06/17 20:20 01/07/17 05:28 01/07/17 07:34 Range/Units Bedside Glucose 170 107 70-90 mg/dl Sodium Level 142 136-145 mmol/L Potassium Level 3.8 3.5-5.1 mmol/L Chloride Level 106 98-107 mmol/L Carbon Dioxide Level 31 21-32 mmol/L Anion Gap 5.0 3-11 mmol/L Blood Urea Nitrogen 9 7-18 mg/dl Creatinine 0.79 0.60-1.20 mg/dl Est Creatinine Clear Calc Drug Dose 55.6 ml/min Estimated GFR () 81.4 Estimated GFR (Non- 70.2 BUN/Creatinine Ratio 12.0 10-20 Random Glucose 154 70-99 mg/dl Calcium Level 8.7 8.5-10.1 mg/dl Assessment & Plan POD # 6 s/p ex lap, lysis of adhesions, microperforation and terminal ileitis -vitals stable - no leukocytosis - passing flatus, still no bowel movement - abdominal pain improving Plan: Had discussion with patient in regards to soap suds enema vs magnesium citrate. Would like for patient to have a bowel movement prior to discharge. Continue Dulcolax, Senna, and Miralax. Will trial Molasses Enema today. Continue current medical management From a surgical standpoint patient doing well Encouraged ambulation Continue IV abx total of 10 days (Day 6) Patient was seen with Dr. Asher she agrees with above
--- NOTE | 2017-01-07 16:15 | Discharge Instructions ---
Discharge Instructions Date of Service Jan 07, 2017. Admission Reason for Admission: Perforated Viscus Discharge Discharge Diagnosis / Problem: same Discharge Goals Goal(s): Decrease discomfort, Improve function Activity Recommendations Activity Limitations: as noted below No heavy lifting over 10 pounds for at least 6 weeks No strenuous activity until cleared to do so by surgeon Walking and light activity is encouraged to prevent blood clots from forming No submerging incision underwater for 2 weeks (no bathing, swimming, or hot tubs ) No driving while taking narcotic pain medication or until you are pain free . Instructions / Follow-Up Instructions / Follow-Up You may shower Surgical davey will be removed in office You will need appointment in 1 week for staple removal in office please call to make an appointment. Current Hospital Diet Patient's current hospital diet: Low Fiber Diet, Diabetes Type 2 Diet Discharge Diet Recommended Diet: Regular Diet Procedures Procedures Performed: Exploratory laparotomy, Lysis of adhesions Pending Studies Studies pending at discharge: no Medical Emergencies . Who to Call and When: Medical Emergencies: If at any time you feel your situation is an emergency, please call 911 immediately. . Non-Emergent Contact Non-Emergency issues call your: Primary Care Provider, Surgeon Call Non-Emergent contact if: you have a fever, temperature is above 101.5, your pain is not controlled, your pain is worsening, your pain is unusual for you, wound has increased drainage, wound has increased redness, wound has increased pain . "Provider Documentation" section prepared by aPtsy Catalan. . VTE Core Measure Inpt VTE Proph given/why not?: SCD's
[2017-01-07] MEDS ORDERED: OXYC-57 PO (17:31)
[2017-01-07] MEDS: HYDROCODONE/ACETAMOPHEN 5/325MG TAB PO PRN (17:44)
[2017-01-07 20:59] VITALS: BP 158/55; PULSE 67; O2SAT 93
[2017-01-08 00:11] VITALS: BP 119/60; PULSE 65; TEMP 36.8; O2SAT 95
[2017-01-08] MEDS: MILK AND MOLASSES ENEMA PR SCH ×6 (00:24→21:30)
[2017-01-08] MEDS: PIPERACILL/TAZOBAC IV 3.375 GM in DEXTROSE 5% 100ML 100 ML IV SCH ×3 (02:14→18:31)
[2017-01-08] MEDS: HYDROCODONE/ACETAMOPHEN 5/325MG TAB PO PRN ×3 (02:15→22:59)
[2017-01-08] MEDS: MoRPHine SULFATE 4 MG/ML 1 ML CARP\\VIAL IV PRN (02:15)
[2017-01-08 05:56] LABS: HEMATOCRIT 32.5 % (37-47); MEAN CELL VOLUME 86.2 fL (80-100); MEAN CORPUSCULAR HEMOGLOBIN 26.8 pg (25-34); MEAN CORPUSCULAR HGB CONC 31.1 g/dl (32-36); MEAN PLATELET VOLUME 10.9 fL (7.4-10.4); PLATELET COUNT 287 K/uL (130-400); RED BLOOD COUNT 3.77 M/uL (4.2-5.4); WHITE BLOOD COUNT 8.93 K/uL (4.8-10.8)
[2017-01-08 06:26] LABS: BUN/CREATININE RATIO 13.4 (10-20); CALCIUM 9.3 mg/dl (8.5-10.1); CREATININE 0.85 mg/dl (0.60-1.20); MAGNESIUM 2.1 mg/dl (1.8-2.4); POTASSIUM 3.7 mmol/L (3.5-5.1)
[2017-01-08 07:03] VITALS: BP 131/65; PULSE 62; TEMP 36.6; O2SAT 95
[2017-01-08] MEDS: INSULIN ASPART 100 UNITS/ML 3 ML PEN SC SCH ×4 (07:36→21:48)
[2017-01-08] MEDS: LEVOTHYROXINE 50 MCG TAB PO SCH (08:29)
[2017-01-08] MEDS: DULOXETINE HCL 60 MG CAP PO SCH (08:29)
[2017-01-08] MEDS: SENNA 8.6 MG TAB PO SCH (08:29)
[2017-01-08] MEDS: POTASSIUM CHLORIDE 20 MEQ TABCR PO SCH (08:29)
[2017-01-08] MEDS: LISINOPRIL 10 MG TAB PO SCH (08:30)
[2017-01-08] MEDS: METOPROLOL TARTRATE 50 MG TAB PO SCH ×2 (08:30→20:20)
[2017-01-08] MEDS: FUROSEMIDE 40 MG TAB PO SCH (08:30)
[2017-01-08] MEDS: POLYETHYLENE (MIRALAX) 17 GM PACK PO SCH (08:30)
[2017-01-08] MEDS: BUDESONIDE/FORMOTEROL FUMARATE 160/4.5 60 PUFFS/INHALER INH SCH ×2 (08:31→20:19)
[2017-01-08] MEDS: BISACODYL 5 MG TABEC PO SCH ×2 (08:35→20:26)
[2017-01-08] MEDS: INSULIN GLARGINE SOLOSTAR 100 UNITS/ML 3 ML PEN SC SCH ×2 (08:43→20:25)
[2017-01-08] MEDS: HEPARIN SOD 5000 UNIT/0.5 ML CARP SQ SCH ×3 (08:44→22:48)
--- NOTE | 2017-01-08 08:54 | Progress Note ---
Subjective Date of Service: Jan 07, 2017. Subjective Pt evaluation today including: conversation w/ patient, conversation w/ family (daughter at bedside), physical exam, chart review, lab review, conversation w/ e business consultant Pain: abdomen PO Intake: fair, tolerating regular diet Voiding: no voiding problems had several small, hard/firm stools with milk of molasses enema today no nausea or emesis still w/ abdominal bloating ambulation is slightly better denies dyspnea Problem List Medical Problems: (1) Acute generalized abdominal pain Status: Acute (2) Diffuse abdominal pain Status: Acute (3) Diverticulitis Status: Acute (4) Lower abdominal pain Status: Acute (5) Mesenteric ischemia Status: Acute (6) Nausea, vomiting, and diarrhea Status: Acute Review of Systems Constitutional: No fever Respiratory: No dyspnea on exertion, No dyspnea at rest Cardiac: No chest pain, No orthopnea Abdomen: + see HPI, + pain Objective Vital Signs Date Time Temp Pulse Resp B/P (MAP) Pulse Ox O2 Delivery O2 Flow Rate FiO2 01/07/17 20:59 67 16 158/55 (89) 93 Nasal Cannula 2.0 01/07/17 16:00 85 Room Air 01/07/17 15:40 37.0 66 18 114/46 (68) 92 Humidified Oxygen 2.0 01/07/17 09:36 94 Nasal Cannula 2.0 01/07/17 07:28 36.5 71 18 162/72 (102) 93 Nasal Cannula 2.0 01/07/17 00:00 Nasal Cannula 2.0 01/06/17 23:11 36.5 66 18 154/80 (104) 94 Nasal Cannula 2.0 Physical Exam General Appearance: no apparent distress ENT: pharynx normal Neck: no JVD Respiratory/Chest: no respiratory distress, no accessory muscle use, + decreased breath sounds (slight, bases) Cardiovascular: regular rate, rhythm, no gallop, + systolic murmur (2/6 ) Abdomen: no organomegaly, + abnormal bowel sounds (still decreased), + distended Extremities: + pedal edema (trace b/l ) Neurologic/Psychiatric: alert, oriented x 3 Skin: + pertinent finding (incision clean, davey intact ) Laboratory Results Last 24 Hours Test 01/07/17 05:28 01/07/17 07:34 01/07/17 11:19 01/07/17 16:53 Sodium Level 142 mmol/L Potassium Level 3.8 mmol/L Chloride Level 106 mmol/L Carbon Dioxide Level 31 mmol/L Anion Gap 5.0 mmol/L Blood Urea Nitrogen 9 mg/dl Creatinine 0.79 mg/dl Est Creatinine Clear Calc Drug Dose 55.6 ml/min Estimated GFR () 81.4 Estimated GFR (Non- 70.2 BUN/Creatinine Ratio 12.0 Random Glucose 154 mg/dl Calcium Level 8.7 mg/dl Bedside Glucose 107 mg/dl 154 mg/dl 142 mg/dl Test 01/07/17 20:38 Bedside Glucose 209 mg/dl Assessment and Plan 81yo female - 1. POD #6, s/p ex lap for perforated viscus - no specific location of perforation found but she had evidence of terminal ileum inflammation. Cause of latter? ischemic? pathology without specific etiology continue IV zosyn. day #7 of such. surgery recommending 7-10 days of such. defer management to gen surg diet advancement per gen surg 2. constipation - slowly improving; seems to have some element of ileus. ambulate bowel regimen 3. hypothyroidism - cont synthroid. 4. COPD - stable, continue normal inhalers. 5. depression - cymbalta. 6. acute blood loss anemia - stable H/H. 7. T2DM - controlled with lantus/novolog. 8. DVT proph - heparin TID 9. HTN - improved. 10. acute diastolic CHF - lasix 40mg po x 1 today; reassess in am PT, OT diogenesals appreciated poor progress dispo - [facility] portion Continued [facility] stay due to: inadequate po fluid intake, ambulation difficulties , multiple IV medications needed Discharge planning: fdc facility
[2017-01-08] MEDS ORDERED: FUROSEMIDE 40 MG TAB PO SCH (09:00)
[2017-01-08] MEDS: ONDANSETRON INJ 2 MG/ML 2 ML VIAL IV PRN ×2 (09:13→18:37)
[2017-01-08] MEDS: TIOTROPIUM BROMIDE 5 PUFF/90 MCG INH INH SCH (09:53)
[2017-01-08] MEDS: SOAP SUDS ENEMA PR SCH ×3 (10:09→15:56)
--- NOTE | 2017-01-08 10:35 | DIAGNOSTIC IMAGING REPORT ---
KUB CLINICAL HISTORY: recent ex lap, ongoing constipation, eval stool load/bowel gas COMPARISON STUDY: CT scan dated 01/01/2017 FINDINGS: Postsurgical changes are evident within the thoracolumbar spine. Skin davey are present within the lower abdomen and pelvis. There are no transition zones indicate bowel obstruction. There is scattered stool throughout the colon. There are soft tissue calcifications projected over both gluteal regions. IMPRESSION: No evidence of pathologic bowel dilatation. Scattered stool within the colon. Electronically signed by: Jeb Dominguez M.D. 01/08/2017 10:33 AM Dictated Date/Time: 01/08/2017 10:32 AM
[2017-01-08] MEDS ORDERED: SOD PHOSPHATE/SOD BIPHOSPHATE ENEMA 132 ML BTL PR STA (10:57)
[2017-01-08] MEDS ORDERED: MAGNESIUM CITRATE 296 ML/BTL PO ONE (11:00)
--- NOTE | 2017-01-08 12:23 | PROGRESS NOTE ---
DATE: 01/08/2017 DATE: 01/08/2017 The patient is recovering from her surgery well. She is postoperative day 6. She has been on antibiotics for 7 days and she is afebrile. White count is normal. Her main problem now is constipation. KUB today shows a lot of stool in both left and the right colon. The stool in the left colon appears to be more solid and she is having difficulty evacuating it despite taking some enemas and MiraLax. The patient was discussed with the hospitalist, Dr. Grande, and we decided to give her a little bit of magnesium citrate orally preceded by some Fleet enemas to see if we can get the stool in the left colon loosened up and passed so that it will open up the rest of it to follow later. I think once her bowels start moving her appetite will improve. I also advised her to increase her activity as this might help stimulate her bowels to move as well. Hopefully once her bowels start moving she will eat better and will be able to be transferred back to her [facility].
--- NOTE | 2017-01-08 13:06 | Surgery Progress Note ---
Surgery Progress Note Date of Service Jan 08, 2017. Subjective 81 year old female POD#7 ex lap for free air, only finding terminal ileitis. On IV abx, tolerating regular diet. Enemas yesterday with 3 small, firm stool balls. No nausea. Ambulating. Lasix last night for possible pulmonary edema. No O2 on in room during my visit. Objective Vital Signs: Date Time Temp Pulse Resp B/P (MAP) Pulse Ox O2 Delivery O2 Flow Rate FiO2 01/08/17 08:20 Nasal Cannula 3.0 01/08/17 07:03 36.6 62 18 131/65 (87) 95 3.0 01/08/17 00:30 Nasal Cannula 3.0 01/08/17 00:11 36.8 65 18 119/60 (79) 95 3.0 01/07/17 20:59 67 16 158/55 (89) 93 Nasal Cannula 2.0 01/07/17 16:00 85 Room Air 01/07/17 15:40 37.0 66 18 114/46 (68) 92 Humidified Oxygen 2.0 General Appearance: WD/WN, no apparent distress Head: normocephalic, atraumatic Neck: supple, no adenopathy, thyroid normal, no JVD, no carotid bruits, trachea midline Respiratory/Chest: chest non-tender, lungs clear, normal breath sounds, no respiratory distress, no accessory muscle use Cardiovascular: regular rate, rhythm, no edema, no gallop, no JVD, no murmur Abdomen: normal bowel sounds, non tender, non distended, soft, no organomegaly , no pulsatile mass Incision(s): clean, dry, intact, no erythema, no drainage Extremities: normal range of motion, non-tender, normal inspection, no pedal edema, no calf tenderness, normal capillary refill, pelvis stable Laboratory Results: Results Past 24 Hours Test 01/07/17 16:53 01/07/17 20:38 01/08/17 03:11 01/08/17 05:09 Range/Units Bedside Glucose 142 209 125 70-90 mg/dl White Blood Count 8.93 4.8-10.8 K/uL Red Blood Count 3.77 4.2-5.4 M/uL Hemoglobin 10.1 12.0-16.0 g/dL Hematocrit 32.5 37-47 % Mean Corpuscular Volume 86.2 80-100 fL Mean Corpuscular Hemoglobin 26.8 25-34 pg Mean Corpuscular Hemoglobin Concent 31.1 32-36 g/dl RDW Standard Deviation 57.5 36.4-46.3 fL RDW Coefficient of Variation 18.3 11.5-14.5 % Platelet Count 287 130-400 K/uL Mean Platelet Volume 10.9 7.4-10.4 fL Sodium Level 139 136-145 mmol/L Potassium Level 3.7 3.5-5.1 mmol/L Chloride Level 103 98-107 mmol/L Carbon Dioxide Level 32 21-32 mmol/L Anion Gap 4.0 3-11 mmol/L Blood Urea Nitrogen 11 7-18 mg/dl Creatinine 0.85 0.60-1.20 mg/dl Est Creatinine Clear Calc Drug Dose 51.6 ml/min Estimated GFR () 74.5 Estimated GFR (Non- 64.3 BUN/Creatinine Ratio 13.4 10-20 Random Glucose 111 70-99 mg/dl Calcium Level 9.3 8.5-10.1 mg/dl Magnesium Level 2.1 1.8-2.4 mg/dl Test 01/08/ 07:26 01/08/17 11:12 Range/Units Bedside Glucose 107 166 70-90 mg/dl Assessment & Plan POD#7 ex-lap, doing well, tolerating diet. Some bm's with enema, KUB with no air fluid levels but still fair amount of stool. Plan: continue current management continue aggressive bowel regiment wean O2 ambulate awaiting some more bm's surgery will follow Jay Jay Nieves,
[2017-01-08 14:56] VITALS: BP 152/82; PULSE 68; TEMP 36.9; O2SAT 92
[2017-01-08] MEDS: MoRPHine SULFATE 2 MG/ML CARP IV PRN (17:06)
[2017-01-08 20:15] VITALS: BP 127/65; PULSE 71
--- NOTE | 2017-01-08 23:12 | Progress Note ---
Subjective Date of Service: Jan 08, 2017. Subjective Pt evaluation today including: conversation w/ patient, physical exam, chart review, lab review, review of studies (KUB xray), conversation w/ licensed tax consultant (GI ), review of inpatient medication list Pain: abdomen PO Intake: fair Voiding: no voiding problems playing solitaire on the computer during my visit complains about ongoing constipation only a few firm/hard balls of stool yesterday with enema Problem List Medical Problems: (1) Acute generalized abdominal pain Status: Acute (2) Diffuse abdominal pain Status: Acute (3) Diverticulitis Status: Acute (4) Lower abdominal pain Status: Acute (5) Mesenteric ischemia Status: Acute (6) Nausea, vomiting, and diarrhea Status: Acute Review of Systems Constitutional: No fever Respiratory: No cough, No shortness of breath, No dyspnea on exertion Cardiac: No chest pain Abdomen: + see HPI, + pain, + nausea, + constipation, No vomiting Objective Vital Signs Date Time Temp Pulse Resp B/P (MAP) Pulse Ox O2 Delivery O2 Flow Rate FiO2 01/08/17 15:30 Nasal Cannula 2.0 01/08/17 14:56 36.9 68 18 152/82 (105) 92 Nasal Cannula 2.0 01/08/17 08:20 Nasal Cannula 3.0 01/08/17 07:03 36.6 62 18 131/65 (87) 95 3.0 01/08/17 00:30 Nasal Cannula 3.0 01/08/17 00:11 36.8 65 18 119/60 (79) 95 3.0 01/07/17 20:59 67 16 158/55 (89) 93 Nasal Cannula 2.0 Physical Exam General Appearance: no apparent distress, + pertinent finding (looks good) ENT: pharynx normal Neck: no JVD Respiratory/Chest: lungs clear, no respiratory distress, no accessory muscle use Cardiovascular: regular rate, rhythm, no gallop, + systolic murmur (2/6 LSB) Abdomen: normal bowel sounds, non tender, soft, no organomegaly, + distended ( mild) Extremities: + pedal edema (trace b/l) Neurologic/Psychiatric: alert, oriented x 3 Skin: + pertinent finding (davey intact abdominal wall; clean incision ) Laboratory Results Last 24 Hours Test 01/08/17 03:11 01/08/17 05:09 01/08/17 07:26 01/08/17 11:12 Bedside Glucose 125 mg/dl 107 mg/dl 166 mg/dl White Blood Count 8.93 K/uL Red Blood Count 3.77 M/uL Hemoglobin 10.1 g/dL Hematocrit 32.5 % Mean Corpuscular Volume 86.2 fL Mean Corpuscular Hemoglobin 26.8 pg Mean Corpuscular Hemoglobin Concent 31.1 g/dl RDW Standard Deviation 57.5 fL RDW Coefficient of Variation 18.3 % Platelet Count 287 K/uL Mean Platelet Volume 10.9 fL Sodium Level 139 mmol/L Potassium Level 3.7 mmol/L Chloride Level 103 mmol/L Carbon Dioxide Level 32 mmol/L Anion Gap 4.0 mmol/L Blood Urea Nitrogen 11 mg/dl Creatinine 0.85 mg/dl Est Creatinine Clear Calc Drug Dose 51.6 ml/min Estimated GFR () 74.5 Estimated GFR (Non- 64.3 BUN/Creatinine Ratio 13.4 Random Glucose 111 mg/dl Calcium Level 9.3 mg/dl Magnesium Level 2.1 mg/dl Test 01/08/17 16:34 Bedside Glucose 177 mg/dl Assessment and Plan 81yo female - 1. POD #7, s/p ex lap for perforated viscus - no specific location of perforation found but she had evidence of terminal ileum inflammation. Cause of latter? ischemic? pathology without specific etiology continue IV zosyn. day #8 of such. surgery recommending 7-10 days of such. defer management to gen surg diet advancement per gen surg 2. constipation - ongoing. Spoke with Dr. Conner - plan for mag citrate and fleets enemas today. If these are not successful then consider golytely prep or miralax prep. 3. hypothyroidism - cont synthroid. 4. COPD - stable, continue normal inhalers. 5. depression - cymbalta. 6. acute blood loss anemia - stable H/H. 7. T2DM - controlled. 8. DVT proph - heparin TID 9. HTN - improved/controlled. 10. acute diastolic CHF - BUN & Cr both stable; lasix 40mg PO qam. follow daily labs PT, OT evals appreciated slow progress dispo - [facility] portion Continued [facility] stay due to: inadequate po fluid intake, ambulation difficulties , multiple IV medications needed [facility]charge planning[facility] facility
[2017-01-08 23:37] VITALS: BP 138/63; PULSE 65; TEMP 36.7; O2SAT 91
[2017-01-09] MEDS: MILK AND MOLASSES ENEMA PR SCH ×6 (00:37→20:28)
[2017-01-09] MEDS: PIPERACILL/TAZOBAC IV 3.375 GM in DEXTROSE 5% 100ML 100 ML IV SCH ×3 (02:12→18:33)
[2017-01-09 05:51] LABS: BUN/CREATININE RATIO 14.8 (10-20); CALCIUM 9.1 mg/dl (8.5-10.1); CREATININE 0.87 mg/dl (0.60-1.20); POTASSIUM 3.7 mmol/L (3.5-5.1)
[2017-01-09] MEDS: LEVOTHYROXINE 50 MCG TAB PO SCH (06:09)
[2017-01-09] MEDS: POTASSIUM CHLORIDE 20 MEQ TABCR PO SCH (06:10)
[2017-01-09] MEDS: HEPARIN SOD 5000 UNIT/0.5 ML CARP SQ SCH ×3 (06:12→22:35)
[2017-01-09] MEDS: INSULIN ASPART 100 UNITS/ML 3 ML PEN SC SCH ×4 (06:30→20:31)
[2017-01-09 06:58] VITALS: BP 149/64; PULSE 65; TEMP 36.6; O2SAT 96
[2017-01-09] MEDS: TIOTROPIUM BROMIDE 5 PUFF/90 MCG INH INH SCH (08:00)
[2017-01-09] MEDS: SOAP SUDS ENEMA PR SCH ×4 (08:00→23:39)
[2017-01-09] MEDS: BUDESONIDE/FORMOTEROL FUMARATE 160/4.5 60 PUFFS/INHALER INH SCH ×2 (08:47→20:28)
[2017-01-09] MEDS: ONDANSETRON INJ 2 MG/ML 2 ML VIAL IV PRN ×2 (08:47→18:32)
[2017-01-09] MEDS: DULOXETINE HCL 60 MG CAP PO SCH (09:11)
[2017-01-09] MEDS: FUROSEMIDE 40 MG TAB PO SCH (09:12)
[2017-01-09] MEDS: SENNA 8.6 MG TAB PO SCH (09:13)
[2017-01-09] MEDS: LISINOPRIL 10 MG TAB PO SCH (09:13)
[2017-01-09] MEDS: METOPROLOL TARTRATE 50 MG TAB PO SCH ×2 (09:14→20:27)
[2017-01-09] MEDS: POLYETHYLENE (MIRALAX) 17 GM PACK PO SCH (09:14)
[2017-01-09] MEDS: INSULIN GLARGINE SOLOSTAR 100 UNITS/ML 3 ML PEN SC SCH ×2 (09:16→20:31)
[2017-01-09] MEDS: BISACODYL 5 MG TABEC PO SCH ×2 (09:21→20:00)
--- NOTE | 2017-01-09 13:08 | Surgery Progress Note ---
Surgery Progress Note Date of Service Jan 09, 2017. Subjective 81 year old female POD# ex lap for free air, only finding terminal ileitis. On IV abx, tolerating regular diet. Multiple bowel movements, feels much better. No nausea. Ambulating. No O2 on in room during my visit. Objective Vital Signs: Date Time Temp Pulse Resp B/P (MAP) Pulse Ox O2 Delivery O2 Flow Rate FiO2 01/09/17 07:36 Room Air 2.0 Nasal Cannula 01/09/17 06:58 36.6 65 18 149/64 (92) 96 2.0 01/08/17 23:37 36.7 65 18 138/63 (88) 91 2.0 01/08/17 23:37 Nasal Cannula 2.0 01/08/17 20:15 71 127/65 (85) 01/08/17 15:30 Nasal Cannula 2.0 01/08/17 14:56 36.9 68 18 152/82 (105) 92 Nasal Cannula 2.0 General Appearance: WD/WN, no apparent distress Head: normocephalic, atraumatic Neck: supple, no adenopathy, thyroid normal, no JVD, no carotid bruits, trachea midline Respiratory/Chest: chest non-tender, lungs clear, normal breath sounds, no respiratory distress, no accessory muscle use Cardiovascular: regular rate, rhythm, no edema, no gallop, no JVD, no murmur Abdomen: normal bowel sounds, non tender, non distended, soft, no organomegaly , no pulsatile mass Incision(s): clean, dry, intact, no erythema, no drainage, ecchymosis Extremities: normal range of motion, non-tender, normal inspection, no pedal edema, no calf tenderness, normal capillary refill, pelvis stable Laboratory Results: Results Past 24 Hours Test 01/08/17 16:34 01/08/17 20:08 01/09/17 05:03 01/09/17 07:39 Range/Units Bedside Glucose 177 160 104 70-90 mg/dl Sodium Level 140 136-145 mmol/L Potassium Level 3.7 3.5-5.1 mmol/L Chloride Level 102 98-107 mmol/L Carbon Dioxide Level 32 21-32 mmol/L Anion Gap 6.0 3-11 mmol/L Blood Urea Nitrogen 13 7-18 mg/dl Creatinine 0.87 0.60-1.20 mg/dl Est Creatinine Clear Calc Drug Dose 50.5 ml/min Estimated GFR () 72.4 Estimated GFR (Non- 62.5 BUN/Creatinine Ratio 14.8 10-20 Random Glucose 97 70-99 mg/dl Calcium Level 9.1 8.5-10.1 mg/dl Test 01/09/17 11:07 Range/Units Bedside Glucose 137 70-90 mg/dl Assessment & Plan POD#8 ex-lap, doing well, tolerating diet, multiple bowel movements Plan: okay to discharge from surgery standpoint if able to stay off O2 transition to oral abx follow up 10-14 days after surgery for staple removal with Dr. Grijalva call with questions or concerns Jay Jay Nieves, DO
[2017-01-09] MEDS: HYDROCODONE/ACETAMOPHEN 5/325MG TAB PO PRN ×3 (13:16→20:21)
[2017-01-09 14:50] VITALS: BP 118/51; PULSE 64; TEMP 36.7; O2SAT 90
[2017-01-09] MEDS ORDERED: NURSING VERBAL MED ORDER ONE (16:15)
[2017-01-09 20:25] VITALS: BP 125/67; PULSE 68
--- NOTE | 2017-01-09 21:05 | Progress Note ---
Subjective Date of Service: Jan 09, 2017. Subjective Pt evaluation today including: conversation w/ patient, physical exam, chart review, lab review Pain: minimal abdominal pain PO Intake: fair at best Voiding: no voiding problems multiple bowel movements overnight abdomen much softer and less bloated during the visit was playing on her iPAD and was quite comfortable denies any dyspnea has been walking the hallways some no new complaints anxious to go home tomorrow ([place]) Problem List Medical Problems: (1) Acute generalized abdominal pain Status: Acute (2) Diffuse abdominal pain Status: Acute (3) Diverticulitis Status: Acute (4) Lower abdominal pain Status: Acute (5) Mesenteric ischemia Status: Acute (6) Nausea, vomiting, and diarrhea Status: Acute Review of Systems Constitutional: No fever Respiratory: No wheezing, No shortness of breath Cardiac: No chest pain, No orthopnea, No PND Abdomen: + pain, No nausea, No vomiting, No constipation Objective Vital Signs Date Time Temp Pulse Resp B/P (MAP) Pulse Ox O2 Delivery O2 Flow Rate FiO2 01/09/17 16:00 Room Air 01/09/17 14:50 36.7 64 18 118/51 (73) 90 Room Air 01/09/17 07:36 Room Air 2.0 Nasal Cannula 01/09/17 06:58 36.6 65 18 149/64 (92) 96 2.0 01/08/17 23:37 36.7 65 18 138/63 (88) 91 2.0 01/08/17 23:37 Nasal Cannula 2.0 Physical Exam General Appearance: no apparent distress, + pertinent finding (looks much better today) ENT: pharynx normal Neck: no JVD Respiratory/Chest: lungs clear, no respiratory distress, no accessory muscle use Cardiovascular: regular rate, rhythm, no gallop, + systolic murmur (2/6 RUSB) Abdomen: normal bowel sounds, non tender, soft, no organomegaly, + pertinent finding (distension is minimal today) Extremities: + pedal edema (trace b/l ) Neurologic/Psychiatric: alert, oriented x 3 Skin: + pertinent finding (midline incision clean) Laboratory Results Last 24 Hours Test 01/09/17 05:03 01/09/17 07:39 01/09/17 11:07 01/09/17 16:45 Sodium Level 140 mmol/L Potassium Level 3.7 mmol/L Chloride Level 102 mmol/L Carbon Dioxide Level 32 mmol/L Anion Gap 6.0 mmol/L Blood Urea Nitrogen 13 mg/dl Creatinine 0.87 mg/dl Est Creatinine Clear Calc Drug Dose 50.5 ml/min Estimated GFR () 72.4 Estimated GFR (Non- 62.5 BUN/Creatinine Ratio 14.8 Random Glucose 97 mg/dl Calcium Level 9.1 mg/dl Bedside Glucose 104 mg/dl 137 mg/dl 129 mg/dl Test 01/09/17 20:06 Bedside Glucose 216 mg/dl Assessment and Plan 81yo female - 1. POD #8, s/p ex lap for perforated viscus - no specific location of perforation found but she had evidence of terminal ileum inflammation. Cause of latter? ischemic? pathology without specific etiology day #9 of zosyn; surgery recommending transitioning to oral abx. will change to augmentin today. complete 2 more days. lactinex. defer management to gen surg diet is back at regular 2. constipation - resolved, marked improvement overnight. now maintain on bowel regimen (senna and miralax). would d/c dulcolax. 3. hypothyroidism - cont synthroid. 4. COPD - stable, continue normal inhalers. 5. depression - cymbalta. 6. acute blood loss anemia - stable H/H. 7. T2DM - controlled. 8. DVT proph - heparin TID 9. HTN - improved/controlled. 10. acute diastolic CHF - appears resolved. d/c lasix after today's dose. PT, OT evals appreciated anticipate d/c to [facility] ([facility]) tomorrow on 01/10 Continued [facility] stay due to: inadequate po fluid intake, ambulation difficulties Discharge planning: [facility] facility
[2017-01-10 00:10] VITALS: BP 142/69; PULSE 61; TEMP 36.4; O2SAT 92
[2017-01-10] MEDS: MILK AND MOLASSES ENEMA PR SCH ×3 (01:30→08:06)
[2017-01-10] MEDS: LEVOTHYROXINE 50 MCG TAB PO SCH (06:02)
[2017-01-10] MEDS: HYDROCODONE/ACETAMOPHEN 5/325MG TAB PO PRN (06:15)
[2017-01-10 06:28] LABS: BUN/CREATININE RATIO 13.5 (10-20); CALCIUM 9.8 mg/dl (8.5-10.1); CREATININE 1.1 mg/dl (0.60-1.20); MAGNESIUM 2.5 mg/dl (1.8-2.4); POTASSIUM 4.1 mmol/L (3.5-5.1)
[2017-01-10] MEDS: INSULIN ASPART 100 UNITS/ML 3 ML PEN SC SCH (06:30)
[2017-01-10] MEDS: POTASSIUM CHLORIDE 20 MEQ TABCR PO SCH (06:39)
[2017-01-10] MEDS: HEPARIN SOD 5000 UNIT/0.5 ML CARP SQ SCH (06:39)
[2017-01-10 07:17] VITALS: BP 140/53; PULSE 70; TEMP 36.6; O2SAT 90
[2017-01-10] MEDS: SENNA 8.6 MG TAB PO SCH (07:35)
[2017-01-10] MEDS: LACTOBACILLUS ACIDOPHILUS (FLORANEX) TAB PO SCH ×2 (07:35→12:00)
[2017-01-10] MEDS: POLYETHYLENE (MIRALAX) 17 GM PACK PO SCH (07:35)
[2017-01-10] MEDS: TIOTROPIUM BROMIDE 5 PUFF/90 MCG INH INH SCH (07:35)
[2017-01-10] MEDS: BUDESONIDE/FORMOTEROL FUMARATE 160/4.5 60 PUFFS/INHALER INH SCH (07:35)
[2017-01-10] MEDS: SOAP SUDS ENEMA PR SCH (07:35)
[2017-01-10] MEDS: DULOXETINE HCL 60 MG CAP PO SCH (07:36)
[2017-01-10] MEDS: LISINOPRIL 10 MG TAB PO SCH (07:36)
[2017-01-10] MEDS: METOPROLOL TARTRATE 50 MG TAB PO SCH (07:36)
[2017-01-10] MEDS ORDERED: AMOXICILLIN/CLAVULANATE TAB 875 MG TAB PO SCH (08:00)
[2017-01-10] MEDS: INSULIN GLARGINE SOLOSTAR 100 UNITS/ML 3 ML PEN SC SCH (08:28)
[2017-01-10] MEDS: ONDANSETRON INJ 2 MG/ML 2 ML VIAL IV PRN (10:05)
[2017-01-10] MEDS ORDERED: AMOX1TAB43 PO (10:29)
[2017-01-10] MEDS ORDERED: LSN10 PO (10:29)
[2017-01-10] MEDS ORDERED: MRLP17 PO (10:29)
[2017-01-10] MEDS ORDERED: LCTX PO (10:29)
[2017-01-10] MEDS ORDERED: SNK PO (10:29)
--- NOTE | 2017-01-10 10:34 | Discharge Instructions ---
Discharge Instructions Date of Service Jan 10, 2017. Admission Reason for Admission: Perforated Viscus Discharge Discharge Diagnosis / Problem: Perforated Viscus with Terminal Ileitis Discharge Goals Goal(s): Decrease discomfort, Improve function, Increase independence Activity Recommendations Activity Level: Assistance Required Therapies: Physical Therapy, Occupational Therapy . Additional Information Patient informed of condition: Yes Advance Directives: Yes DNR: No Level of Care: Skilled Communicable Disease: No Prognosis: Improving Instructions / Follow-Up Instructions / Follow-Up Perforated Viscus S/P Exploratory Laparoscopy with Adhesion Lysis: - Augmentin 1 tablet this evening 01/10 to finish full course - Continue diabetic diet and recommend initially low fiber until follow-up - Follow-up with Dr. Grijalva in 10-14 days to have davey removed after surgery - surgical date 01/01 Constipation: - Continue Miralax and Senna to improve bowel regimen HTN: - Did increase Lisinopril from 5 mg to 10 mg daily - In-hospital converted Toprol XL to Lopressor 50 mg BID but will keep on home dose - consideration for increasing for better BP control -- Upon admission patient had more normal readings and elevations in presence of surgical intervention - do not want to make drastic changes and cause hypotension Current Hospital Diet Patient's current hospital diet: Low Fiber Diet, Diabetes Type 2 Diet Discharge Diet Recommended Diet: Diabetes Type 2 Diet, Low Fiber Diet Procedures Procedures Performed: Exploratory laparotomy, Lysis of adhesions Pending Studies Studies pending at discharge: no Medical Emergencies . Who to Call and When: Medical Emergencies: If at any time you feel your situation is an emergency, please call 911 immediately. . Non-Emergent Contact Non-Emergency issues call your: Primary Care Provider Call Non-Emergent contact if: you have a fever, your pain is concerning you, you have any medication questions . . "Provider Documentation" section prepared by Marta Zuniga. . Core Measure Problem Core Measures: None
[2017-01-10 11:45] VITALS: BP 140/53; PULSE 70; TEMP 36.6; O2SAT 90
--- NOTE | 2017-01-10 14:24 | Discharge Summary ---
Discharge Summary Date of Service Jan 10, 2017. Discharge Summary Admission Date: Jan 01, 2017 at 08:17 Discharge Date: Jan 10, 2017 Discharge Disposition: retirement facility Principal Diagnosis: Terminal Ileitis with Viscus Perforation S/P Ex Lap with Adhesion Lysis Problems/Secondary Diagnoses: 1. Diverticulosis 2. Constipation 3. Hypothyroidism 4. COPD 5. Depression 6. T2DM 7. HTN 8. Diastolic CHF Immunizations: Have You Had Influenza Vaccine: Yes Influenza Vaccine Date: Jan 31, 2011 History of Tetanus Vaccine?: No History of Pneumococcal: No Pneumococcal Date: Feb 25, 2003 History of Hepatitis B Vaccine: No Procedures: ABD/PELVIS IV CONTRAST ONLY FINDINGS: mild dependent basilar atelectasis. Stable postoperative changes to the thoracolumbar spine. Free intraperitoneal air. Several vascular calcifications of the spleen. Pancreas appears unremarkable. No evidence for gastric distention. The kidneys enhance uniformly. The adrenal glands are unremarkable. Several somewhat thickened loops of small bowel in the left upper abdominal region. This is seen to a lesser extent involving the right lower quadrant. Mild chronic colonic diverticulosis. No evidence for acute diverticulitis. IMPRESSION: 1. Free intraperitoneal air. 2. Etiology/origin is unknown. 3. Mild scattered colonic diverticulosis. 4. Mild reactive small bowel ileus. CHEST 2 VIEWS ROUTINE FINDINGS: A right subclavian [id number] and thoracolumbar spine fusion hardware is incidentally noted. There has been interval development of small bilateral pleural effusions. There is no pneumothorax. Mild bibasilar opacities favor atelectasis. Cardiomediastinal silhouette is stable. Mild interstitial thickening has developed. IMPRESSION: Interval development of small bilateral pleural effusions and interstitial thickening suggestive of mild pulmonary edema. Consultations: 1. General Surgery 2. Gastroenterology Medication Reconciliation New Medications: Oxycodone/Acetaminophen 5MG/325MG (Percocet 5MG/325MG) Tab 1 TABLET PO Q4H PRN for Pain, #18 TAB Amoxicillin & Pot Clavulanate (Amoxicillin/Clavulanate P) 1 Tab Tab 875 MG PO BIDM, #1 TAB Take last dose this evening 01/10 Lactobacillus Acidophilus (Floranex) 1 Tab Tab 4 TAB PO TIDM for 7 Days, TAB Lisinopril (Zestril) 10 Mg Tab 10 MG PO QAM for 14 Days, TAB Polyethylene (Miralax) 17 Gm Pow 17 GM PO DAILY for 14 Days Senna (Senna Lax) 8.6 Mg Tab 17.2 MG PO QAM for 14 Days, TAB Continued Medications: Acetaminophen (Tylenol) 325 Mg Tab 2 TAB PO Q4H PRN for Pain or Fever DO NOT EXCEED 3GM/24HR Acetaminophen (Tylenol) 500 Mg Tab 1 TAB PO BID, TAB 0510-9885 Albuterol Sulfate (Proair Respiclick) 108 Mcg/Act Aer 2 PUFFS INH Q6H PRN for Wheezing Budesonide/Formoterol Fumarate (Symbicort 160/4.5 Inhaler ) Aero 2 PUFFS INH BID 3316-1022 Calcium (Calcium) 600 Mg Tab 1 TAB PO BID Canagliflozin (Invokana) 100 Mg Tab 100 MG PO QAM Cholecalciferol (Vitamin D3) 2,000 Unit Cap 1 CAP PO DAILY for 30 Days, #30 CAP 3 Refills Clopidogrel (Plavix) 75 Mg Tab 75 MG PO DAILY, TAB Coenzyme Q10 (Ubidecarenone) (Coq10) 200 Mg Cap 200 MG PO DAILY Docusate Sodium (Docusate Sodium) 100 Mg Cap 100 MG PO DAILY Docusate Sodium (Colace) 100 Mg Cap 2 CAP PO Q24H PRN for Constipation for 30 Days, #60 CAP Duloxetine Hcl (Cymbalta) 60 Mg Cap 60 MG PO QAM, CAP Insulin Glargine (Lantus Solostar) 100 Unit/Ml Inj 24 UNITS SC QAM, PEN Insulin Glargine (Lantus Solostar) 100 Unit/Ml Inj 20 UNITS SC HS, PEN Insulin Lispro (Human) (Humalog) 100 Unit/Ml Inj 1 DOSE SC SLIDING SCALE. [id number] 151-175=1UNIT 176-200=2UNITS 201-225=3UNITS 226-250=4UNITS 251-275=5UNITS 276-300=6UNITS 301-325=7UNITS 326-350=8UNITS 351-375=9UNITS 376-400=10UNITS 401-425=11UNITS 426-450=12UNITS 451-475=13UNITS 476-500=14UNITS 501-525=15UNITS 526+ =16UNITS Insulin Lispro (Human) (Humalog Kwikpen) 100 Unit/Ml Inj 10 UNITS SC WM [phone] Ipratropium-Albuterol (Duoneb) 3 Ml Nebu 1 TREATMENT INH QID PRN for SOB/Wheezing, INHA Levothyroxine Sodium (Levo-T) 50 Mcg Tab 50 MCG PO QAM TAKE 30 MIN BEFORE MEAL Loperamide Hcl (Imodium) 2 Mg Cap 2 MG PO TID PRN for Diarrhea, CAP Melatonin (Melatonin Maximum Strengt) 5 Mg Tab 5 MG PO HS Metoprolol Succ (Toprol Xl) (Toprol-Xl) 50 Mg Tabcr 50 MG PO QAM Montelukast Sod (Montelukast Sodium) 10 Mg Tab 10 MG PO DAILY Ondansetron Hcl (Zofran) 8 Mg Tab 8 MG PO Q8 PRN for Nausea Pancrelipase (Lipase-Protease- (Creon) 1 Cap Cap 1 CAP PO DAILY PRN for SNACKS PRN GIVE 1 CAP NEEDED FOR PANCREAS INSUFF ONE CAP WITH SNACKS IF FOUR HOURS SINCE PREVIOUS DOSE Pancrelipase (Lipase-Protease- (Creon) 1 Cap Cap 2 CAP PO [id number] 48595 UNIT Pantoprazole (Protonix) 40 Mg Tab 40 MG PO QAM, #30 TAB Pregabalin (Lyrica) 50 Mg Cap 50 MG PO BID, CAP Rosuvastatin Calcium (Crestor) 10 Mg Tab 10 MG PO QAM, TAB Tiotropium Morrison (Spiriva Respimat) 1.25 Mcg/Act Aer 2 PUFFS INH QAM, INHALER Discontinued Medications: Lisinopril (Lisinopril) 5 Mg Tab 5 MG PO DAILY Oxycodone/Acetaminophen 5MG/325MG (Percocet 5MG/325MG) Tab 1 TABLET PO Q4H PRN for Pain PAIN RATED 6-10 Discharge Exam Review of Systems: Constitutional: No fever, No chills Respiratory: No cough, No shortness of breath Cardiovascular: No chest pain, No palpitations Abdomen: + pain (minimal incisional pain), + nausea (intermittent - mild), No vomiting, No diarrhea, No constipation Musculoskeletal: No swelling, No calf pain Genitourinary - Female: No dysuria Hematologic / Lymphatic: No abnormal bleeding/bruising Physical Exam: General Appearance: WD/WN, no apparent distress Eyes: sclerae normal ENT: hearing grossly normal Neck: supple, no JVD, trachea midline Respiratory/Chest: lungs clear, normal breath sounds, no respiratory distress, no accessory muscle use Cardiovascular: regular rate, rhythm, no gallop, + systolic murmur Abdomen / GI: normal bowel sounds, non tender, soft, + pertinent finding ( midline incision well approximated with davey intact) Extremities: no pedal edema Neurologic/Psychiatric: alert, oriented x 3 Skin: normal color, warm/dry Hospital Course ADMISSION: This patient was seen in the postop recovery area after a request from surgery to admit the patient is a hospital. She was taken emergently to the operating room from the ER due to perforated viscus. According to Dr. Grijalva abdomen was not significantly inflamed. The patient was arousable and awake after the procedure complaining of some abdominal pain having no other complaints or problems. HOSPITAL COURSE: Ms. Victoria was admitted for Viscus Perforation S/P Exploratory Laparotomy and Lysis of Adhesions on 01/01. No definitive location of perforation observed but there was evidence of terminal ileum inflammation which may be from perforation vs ischemic. She was treated with Zosyn and converted to Augmentin to finish out a 10 day course. During admission she had acute blood loss anemia and was transfused 2 units on 01/02. Also, patient noted to be significantly constipated and will maintain on Senna and Miralax at this time. She will be discharged to [facility]. Total Time Spent: Greater than 30 minutes This includes examination of the patient, discharge planning, medication reconciliation, and communication with other providers. Discharge Instructions Please refer to the electronic Patient Visit Report (Discharge Instructions) for additional information. Additional Copies To Brianna Beckett
== END 2017-01-10 12:16 | DRG 335 ==
LOC: EDBD 22:14 → C.EDB 22:16 → C.2T 01-01 08:17 → ENRESERV 01-01 08:33 → C.MED 01-05 02:02 → C.MS4W 01-06 18:56
PROVIDERS: ADMIT Internal Medicine; ATTEND Internal Medicine
PROC: 0DNB0ZZ Release Ileum, Open Approach (ICD-10-PCS; principal; 2017-01-01 04:26)
PROC: 0WJP0ZZ Inspection of Gastrointestinal Tract, Open Approach (ICD-10-PCS; principal; 2017-01-01 04:26)
PROC: 0DNS0ZZ (ICD-10-PCS; principal; 2017-01-01 04:26)
DX: K50.018 Crohn's disease of small intestine with other complication (principal); K63.1 Perforation of intestine (nontraumatic); I50.31 Acute diastolic (congestive) heart failure; D62 Acute posthemorrhagic anemia; J96.10 Chronic respiratory failure, unspecified whether with hypoxia or hypercapnia; N73.6 Female pelvic peritoneal adhesions (postinfective); K57.90 Diverticulosis of intestine, part unspecified, without perforation or abscess without bleeding; K59.00 Constipation, unspecified; D72.829 Elevated white blood cell count, unspecified; C50.912 Malignant neoplasm of unspecified site of left female breast; I11.0 Hypertensive heart disease with heart failure; J44.9 Chronic obstructive pulmonary disease, unspecified; E11.42 Type 2 diabetes mellitus with diabetic polyneuropathy; E03.9 Hypothyroidism, unspecified; I73.9 Peripheral vascular disease, unspecified; F32.9 Major depressive disorder, single episode, unspecified; F41.9 Anxiety disorder, unspecified; E66.9 Obesity, unspecified; Z68.31 Body mass index [BMI] 31.0-31.9, adult; Z53.29 Procedure and treatment not carried out because of patient's decision for other reasons; Z95.820 Peripheral vascular angioplasty status with implants and grafts; Z87.891 Personal history of nicotine dependence; Z92.3 Personal history of irradiation; Z79.51 Long term (current) use of inhaled steroids; Z79.02 Long term (current) use of antithrombotics/antiplatelets; Z79.4 Long term (current) use of insulin; Z79.891 Long term (current) use of opiate analgesic; Z79.899 Other long term (current) drug therapy

== ENCOUNTER → 2017-01-13 | Outpatient (CLI) | payer OTHER, MEDICARE ==
[~2017-01-13] MED LIST changes: +AMOX1TAB43 PO; +DOCU-94 PO; -FLUT0.15 NAE; +LCTX PO; +LSN10 PO; -LSN5 PO; +PANT40TA PO; -PIOG1TAB23 PO; -POLY150C PO; -PRT40 PO; +SNK PO; +TIOT1AER2 INH
== END | disposition home or self-care (01) ==
LOC: C.LABFOXDH 08:22
PROVIDERS: ATTEND Internal Medicine
DX: R30.0 Dysuria (principal)

== ENCOUNTER → 2017-02-15 | Outpatient (CLI) | payer OTHER, MEDICARE ==
[2017-02-16 08:59] LABS: URINE APPEARANCE TURBID (CLEAR); URINE BILIRUBIN NEG (NEG); URINE COLOR YELLOW; URINE EPITHELIAL CELL AUTO >30 /lpf (0-5); URINE NITRITE NEG (NEG); URINE SPECIFIC GRAVITY 1.026 (1.000-1.030); UROBILINOGEN NEG (NEG)
[2017-02-16 09:05] LABS: MANUAL MICROSCOPIC REQUIRED? NO; REVIEW REQ? YES
== END | disposition home or self-care (01) ==
LOC: C.LABFOXDH 23:30
PROVIDERS: ATTEND Internal Medicine
DX: R10.9 Unspecified abdominal pain (principal)

== ENCOUNTER → 2017-02-16 | Outpatient (CLI) | payer OTHER, MEDICARE ==
[2017-02-16 08:49] LABS: BASO % 0.1 %; BASO ABS # 0.01 K/uL (0-0.2); EOS % 2.7 %; HEMATOCRIT 31.4 % (37-47); IG% 0.3 %; LYMPH % 20.1 %; LYMPH ABS # 1.84 K/uL (1.2-3.4); MEAN CELL VOLUME 85.8 fL (80-100); MEAN CORPUSCULAR HEMOGLOBIN 26.2 pg (25-34); MEAN CORPUSCULAR HGB CONC 30.6 g/dl (32-36); MEAN PLATELET VOLUME 10.6 fL (7.4-10.4); NEUT % 68.8 %; PLATELET COUNT 304 K/uL (130-400); RED BLOOD COUNT 3.66 M/uL (4.2-5.4); WHITE BLOOD COUNT 9.16 K/uL (4.8-10.8)
[2017-02-16 08:55] LABS: BLOOD UREA NITROGEN 18 mg/dl (7-18); BUN/CREATININE RATIO 18.8 (10-20); CALCIUM 8.9 mg/dl (8.5-10.1); CARBON DIOXIDE 25 mmol/L (21-32); CHLORIDE 104 mmol/L (98-107); CREATININE 0.98 mg/dl (0.60-1.20); GLUCOSE 124 mg/dl (70-99); POTASSIUM 4.7 mmol/L (3.5-5.1); SODIUM 136 mmol/L (136-145)
[2017-02-16 09:23] LABS: ANISOCYTOSIS PRESENT; COMPLETE YES
== END | disposition home or self-care (01) ==
LOC: C.LABFOXDH 08:15
PROVIDERS: ATTEND Internal Medicine
DX: R10.9 Unspecified abdominal pain (principal)

== ENCOUNTER → 2017-02-17 | Outpatient (CLI) | payer OTHER, MEDICARE | END | disposition home or self-care (01) | LOC: C.LABFOXDH 14:14 | PROVIDERS: ATTEND Internal Medicine | DX: N30.91 Cystitis, unspecified with hematuria (principal) ==

== ENCOUNTER → 2017-03-03 | Outpatient (CLI) | payer OTHER, MEDICARE ==
[~2017-03-03] MED LIST changes: +OPTIRAY 320 IV PRN
--- NOTE | 2017-03-03 13:26 | DIAGNOSTIC IMAGING REPORT ---
ABD/PELVIS COMBO CT DOSE: 1648.38 mGycm HISTORY: Hematuria. Flank pain. TECHNIQUE: Multiaxial CT images of the abdomen and pelvis were performed pre and post intravenous contrast enhancement. A dose lowering technique was utilized adhering to the principles of ALARA. COMPARISON STUDY: 01/01/2017 FINDINGS: The free intraperitoneal air has resolved. Lung bases are considered clear. Minimal basilar atelectatic change on the right. Stable postoperative changes of the thoracolumbar spine. Enhancement characteristics of the liver are uniform. Air within the biliary ductal system most likely on a postoperative basis. Prior cholecystectomy. The kidneys enhance uniformly. Calcified granuloma the spleen unchanged. Moderate atrophy of the pancreas. Kidneys negative for hydronephrosis. Ureters normal in course and caliber. Bladder opacifies appropriately. There are no filling defects. Mild scattered plaque diverticulosis. No evidence of diverticulitis. IMPRESSION: No significant abnormality identified within the abdomen or pelvis. No evidence for an obstructing urinary tract calculus. Mild scattered colonic diverticulosis. Interval resolution of the free intraperitoneal air described previously. The above report was generated using voice recognition software. It may contain grammatical, syntax or spelling errors. Electronically signed by: Lakhwinder Strange M.D. 03/03/2017 1:25 PM Dictated Date/Time: 03/03/2017 1:18 PM
== END | disposition home or self-care (01) ==
LOC: C.CTS 12:16
PROVIDERS: ATTEND Internal Medicine
DX: R10.84 Generalized abdominal pain (principal); R31.9 Hematuria, unspecified

== ENCOUNTER → 2017-03-23 | Outpatient (CLI) | payer OTHER, MEDICARE ==
[~2017-03-23] MED LIST changes: -OPTIRAY 320 IV PRN
== END | disposition home or self-care (01) ==
LOC: C.LABSPEC 17:04
PROVIDERS: ATTEND Urology
DX: R31.0 Gross hematuria (principal); R82.90 Unspecified abnormal findings in urine

== ENCOUNTER → 2017-03-28 | Outpatient (CLI) | payer OTHER, MEDICARE ==
[2017-03-28 08:55] LABS: BLOOD UREA NITROGEN 17 mg/dl (7-18); BUN/CREATININE RATIO 17.8 (10-20); CARBON DIOXIDE 27 mmol/L (21-32); CHLORIDE 104 mmol/L (98-107); CREATININE 0.98 mg/dl (0.60-1.20); GLUCOSE 236 mg/dl (70-99); POTASSIUM 4.4 mmol/L (3.5-5.1); SODIUM 139 mmol/L (136-145)
== END | disposition home or self-care (01) ==
LOC: C.LABFOXDH 07:57 → C.LABSPEC 07:57
PROVIDERS: ATTEND Physician Assistant
DX: E11.9 Type 2 diabetes mellitus without complications (principal)

== ENCOUNTER → 2017-06-28 | Outpatient (CLI) | payer OTHER, MEDICARE ==
[~2017-06-28] MED LIST changes: -METO50TA7 PO; +METO50TA8 PO
--- NOTE | 2017-06-28 14:37 | DIAGNOSTIC IMAGING REPORT ---
TWO VIEW CHEST CLINICAL HISTORY: Breast cancer. FINDINGS: PA and lateral chest radiographs are compared to study dated 01/04/2017 and correlated with chest CT dated 07/27/2013. A right subclavian central venous infusion port is unchanged in position. The heart is top normal for projection and there is atherosclerotic calcification of the thoracic aorta. Emphysema and chronic interstitial thickening are similar to previous. No airspace consolidation or pleural effusion is identified. Apical scarring is observed. There is no pneumothorax. The skeletal structures are osteopenic. The bony thorax appears intact. Fusion hardware is seen at the thoracolumbar junction. A compression deformity is noted in the upper lumbar region. IMPRESSION: Emphysema with no active disease in the chest. Electronically signed by: Zbigniew Harrington M.D. 06/28/2017 2:35 PM Dictated Date/Time: 06/28/2017 2:34 PM
== END | disposition home or self-care (01) ==
LOC: C.RAD 14:09
PROVIDERS: ATTEND Internal Medicine Hematology & Oncology
DX: C50.412 Malignant neoplasm of upper-outer quadrant of left female breast (principal); J43.9 Emphysema, unspecified

== ENCOUNTER → 2017-07-08 | Outpatient (CLI) | payer OTHER, MEDICARE ==
[2017-07-08 09:07] LABS: HEMATOCRIT 31.2 % (37-47); HEMOGLOBIN 9.2 g/dL (12.0-16.0); MEAN CELL VOLUME 81.3 fL (80-100); MEAN CORPUSCULAR HGB CONC 29.5 g/dl (32-36); PLATELET COUNT 301 K/uL (130-400); RED CELL DISTRIBUTION WIDTH CV 19.1 % (11.5-14.5); RED CELL DISTRIBUTION WIDTH SD 57.3 fL (36.4-46.3); WHITE BLOOD COUNT 7.52 K/uL (4.8-10.8)
[2017-07-08 09:13] LABS: ALBUMIN 3.3 gm/dl (3.4-5.0); ALT/SGPT 20 U/L (12-78); AST/SGOT 12 U/L (15-37); BLOOD UREA NITROGEN 24 mg/dl (7-18); CALCIUM 9.3 mg/dl (8.5-10.1); CARBON DIOXIDE 26 mmol/L (21-32); CREATININE 1.13 mg/dl (0.60-1.20); GLUCOSE 195 mg/dl (70-99); POTASSIUM 5.3 mmol/L (3.5-5.1); SODIUM 136 mmol/L (136-145)
[2017-07-08 09:17] LABS: ALKALINE PHOSPHATASE 84 U/L (45-117); TOTAL PROTEIN 7.3 gm/dl (6.4-8.2)
== END | disposition home or self-care (01) ==
LOC: C.LABFOXDH 08:40
PROVIDERS: ATTEND Internal Medicine
DX: R06.00 Dyspnea, unspecified (principal)

== ENCOUNTER → 2017-07-11 | Outpatient (CLI) | payer OTHER, MEDICARE ==
[~2017-07-11] MED LIST changes: +OPTIRAY 320 IV PRN
--- NOTE | 2017-07-11 15:07 | DIAGNOSTIC IMAGING REPORT ---
(CHEST FOR PE) ANGIO WITH CLINICAL HISTORY: 81 years-old Female presenting with ^BREAST CA, PLEURITIC CHEST PAIN, SOB. TECHNIQUE: Multidetector CT angiography of the chest was performed after administration of intravenous contrast. 3-D volumetric and/or maximum intensity projection (MIP) images were subsequently reconstructed for review. IV contrast: 92 mL of Optiray 320. A dose lowering technique was used consistent with the principles of ALARA (as low as reasonably achievable). COMPARISON: 07/27/2013. CT DOSE (mGy.cm): The estimated cumulative dose is 461.49 mGy.cm. FINDINGS: Valuation Consultant topogram: Unremarkable. Pulmonary vasculature: The study is adequate for assessment of the pulmonary vascular tree. No filling defect within the pulmonary arteries to suggest embolus. Main pulmonary artery is not enlarged. No flattening of the interventricular septum. No intracardiac filling defect. No reflux of contrast into the hepatic veins. Remaining chest: On soft tissue windows, normal thyroid. Postsurgical and posttreatment changes of the left breast with a low-density collection adjacent to surgical clips suggesting lumpectomy and small seroma. Skin thickening of the left breast suggest post radiation change. No axillary, supraclavicular, hilar, or mediastinal lymphadenopathy. Atherosclerosis of the aorta. Normal heart size. Coronary artery calcification. No pericardial or pleural effusion. The esophagus is mildly distended with gas. Splenic arterial calcification. Pneumobilia. On lung windows, trace emphysematous changes at the lung apices. Anterior reticulation in a subpleural distribution in the left upper lobe consistent with post radiation change. Dependent groundglass opacities in the remaining lobes likely atelectasis. No other focal infiltrate or nodule. Subsegmental bronchial debris noted in the lower lobes with bronchial wall thickening. Central airways patent. On bone windows, transpedicular screw and harish fixation at the thoracolumbar junction. Degenerative changes of the spine. IMPRESSION: 1. No evidence of pulmonary embolus. No acute intrathoracic pathology. 2. Trace emphysema. 3. Dependent atelectasis. 4. Post radiation changes in the left upper lobe. 5. Postoperative and posttreatment changes of the left breast with a small seroma. No lymphadenopathy. Electronically signed by: José Miguel Luna M.D. 07/11/2017 3:06 PM Dictated Date/Time: 07/11/2017 3:01 PM
== END | disposition home or self-care (01) ==
LOC: C.CTS 14:30
PROVIDERS: ATTEND Internal Medicine
DX: R06.00 Dyspnea, unspecified (principal); C50.919 Malignant neoplasm of unspecified site of unspecified female breast; R07.1 Chest pain on breathing; R60.0 Localized edema; R52 Pain, unspecified; J98.11 Atelectasis

== ENCOUNTER → 2017-07-11 | Outpatient (CLI) | payer OTHER, MEDICARE ==
[~2017-07-11] MED LIST changes: -OPTIRAY 320 IV PRN
== END | disposition home or self-care (01) ==
LOC: C.LABFOXDH 07:49
PROVIDERS: ATTEND Internal Medicine
DX: D64.9 Anemia, unspecified (principal)

== ENCOUNTER → 2017-07-13 | Outpatient (CLI) | payer OTHER, MEDICARE ==
[~2017-07-13] MED LIST changes: -OXYC-57 PO
--- NOTE | 2017-07-13 16:10 | DIAGNOSTIC IMAGING REPORT ---
WHOLE BODY BONE SCAN HISTORY: BONE PAIN IN BACK,BREAST CANCER RADIOTRACER: 27.5 mCi Tc-99m MDP STUDY/IMAGES: Planar anterior and posterior whole body imaging was performed 3 hours following the intravenous administration of radiotracer. COMPARISON: Chest CTA 07/11/2017. Abdomen and pelvis CT 03/03/2017. FINDINGS: Radiotracer uptake seen within the posterior elements at the thoracolumbar junction. This is likely due to facet degenerative change and postoperative change. Mild radiotracer uptake seen within the wrists and cervical spine facets also favors degenerative change. No suspicious areas of radiotracer uptake within the axial or appendicular skeleton to suggest metastatic disease. IMPRESSION: 1. No suspicious areas of radiotracer uptake to suggest metastatic disease. 2. Radiotracer uptake at the posterior elements of the thoracolumbar junction. This likely represents a combination of degenerative and postoperative change. Electronically signed by: Jose Bishop M.D. 07/13/2017 4:09 PM Dictated Date/Time: 07/13/2017 3:55 PM
== END ==
LOC: C.NUCL 11:41
PROVIDERS: ATTEND Internal Medicine
DX: M89.8X0 Other specified disorders of bone, multiple sites (principal); C50.919 Malignant neoplasm of unspecified site of unspecified female breast

== ENCOUNTER → 2017-07-26 | Outpatient (CLI) | payer OTHER, MEDICARE ==
[2017-07-26 09:03] LABS: HEMATOCRIT 33.5 % (37-47); HEMOGLOBIN 10.2 g/dL (12.0-16.0); MEAN CELL VOLUME 87.2 fL (80-100); MEAN CORPUSCULAR HEMOGLOBIN 26.6 pg (25-34); MEAN CORPUSCULAR HGB CONC 30.4 g/dl (32-36); PLATELET COUNT 260 K/uL (130-400); RED CELL DISTRIBUTION WIDTH CV 24.9 % (11.5-14.5); RED CELL DISTRIBUTION WIDTH SD 78.7 fL (36.4-46.3); WHITE BLOOD COUNT 5.61 K/uL (4.8-10.8)
[2017-07-26 09:09] LABS: HEMOGLOBIN A1C 7.6 % (4.5-5.6)
== END | disposition home or self-care (01) ==
LOC: C.LABFOXDH 08:39
PROVIDERS: ATTEND Internal Medicine
DX: E11.9 Type 2 diabetes mellitus without complications (principal)

== ENCOUNTER → 2017-09-02 | Outpatient (CLI) | payer OTHER, MEDICARE ==
[2017-09-02 10:02] LABS: HEMOGLOBIN A1C 8.5 % (4.5-5.6)
== END | disposition home or self-care (01) ==
LOC: C.LABFOXDH 07:45
PROVIDERS: ATTEND Internal Medicine
DX: E03.9 Hypothyroidism, unspecified (principal)

== ENCOUNTER 2018-06-19 16:49 | Inpatient (IN) ==
[2018-06-19] MEDS ORDERED: MoRPHine SULFATE 4 MG/ML 1 ML CARP\\VIAL IV STA (16:54)
[2018-06-19] MEDS ORDERED: ONDANSETRON INJ 2 MG/ML 2 ML VIAL IV STA (16:54)
[2018-06-19 17:30] LABS: Basophils # (auto) 0.01 K/uL (0-0.2); Basophils % (auto) 0.1 %; Eosinophils % (auto) 0.8 %; Hematocrit (blood only) 41.2 % (37-47); Hemoglobin 13.6 g/dL (12.0-16.0); Immature Granulocytes # (auto) 0.03 K/uL (0.00-0.02); Immature Granulocytes % (auto) 0.3 %; Lymphocytes # (auto) 2.68 K/uL (1.2-3.4); Lymphocytes % (auto) 22.7 %; Mean Corpuscular Volume 94.5 fL (80-100); Mean Platelet Volume 10.9 fL (7.4-10.4); Monocytes # (auto) 0.72 K/uL (0.11-0.59); Monocytes % (auto) 6.1 %; Neutrophils # (auto) 8.27 K/uL (1.4-6.5); Platelet Count 226 K/uL (130-400); RDW Coefficient of Variation 13.1 % (11.5-14.5); RDW Standard Deviation 45.7 fL (36.4-46.3); Red Blood Count 4.36 M/uL (4.2-5.4); White Blood Count 11.81 K/uL (4.8-10.8)
[2018-06-19 17:47] LABS: Albumin Level 3.2 gm/dl (3.4-5.0); BUN Creatinine Ratio 14.9 (10-20); Calcium 9.2 mg/dl (8.5-10.1); Creatinine Clr Calc Pharmacy 48.3 ml/min; Est GFR (African American) 70.9; Est GFR (Non-African American) 61.2; Potassium 4.6 mmol/L (3.5-5.1)
[2018-06-19 17:50] LABS: Albumin Globulin Ratio 0.7 (0.9-2); Bilirubin,Total 0.3 mg/dl (0.2-1); Globulin 4.3 gm/dl (2.5-4.0); Total Protein 7.5 gm/dl (6.4-8.2)
[2018-06-19] MEDS ORDERED: IOVERSOL 100ml IV PRN (18:11)
--- NOTE | 2018-06-19 18:30 | CT Scan Report ---
CT SCAN OF THE ABDOMEN AND PELVIS WITH IV CONTRAST CLINICAL HISTORY: Generalized abdominal pain. COMPARISON STUDY: Abdominal CT dated 04/12/2018 and 10/02/2013. MRCP dated 05/05/2018. TECHNIQUE: Following the IV administration of 93 cc of Optiray 320, CT scan of the abdomen and pelvi s is performed from the lung bases to the proximal femora. Images are reviewed in the axial, sagittal , and coronal planes. IV contrast was administered without complication. A dose lowering technique wa s utilized adhering to the principles of ALARA. The examination is degraded by streak artifact from e xtensive metallic spinal hardware. CT DOSE: 385.05 mGy.cm FINDINGS: Lung bases: The heart is normal in size and without pericardial effusion. The coronary arteries are d ensely calcified. There is a small hiatal hernia. Emphysema is suspected. A fat-containing Bochdalek hernia is noted at the right lung base. There is bibasilar scarring/atelectasis. No airspace consolid ation or pleural effusion is identified. Liver: The contrast-enhanced liver is normal in size, contour, and attenuation. Pneumobilia is simila r to previous. There is mild central intrahepatic biliary ductal dilatation. The hepatic veins and po rtal veins are patent. Gallbladder: Surgically absent. Spleen: Normal in size and attenuation. There are least 2 peripherally calcified spinal artery aneury sms which measure up to 12 mm. Pancreas: Atrophic and grossly unremarkable. Adrenal glands: Unremarkable. Kidneys: The contrast enhanced kidneys demonstrate cortical atrophy and are without hydronephrosis. T he kidneys enhance symmetrically. Abdominal vasculature: The abdominal aorta is normal in course and caliber noting advanced atheroscle rotic calcification. Bowel: There is a large fat-containing supraumbilical hernia which contains nonobstructed segment of bowel. There is moderate sigmoid diverticulosis without CT evidence of acute diverticulitis. Moderate constipation is observed. The small bowel loops are distended and fluid-filled, measuring up to 3.1 cm in diameter. The distal ileum is decompressed, and the appearance is consistent with a small bowel obstruction. This transitions in the right lower quadrant where there are matted small bowel loops, and this is likely on the basis of adhesions. No focally thick walled bowel loops are identified. The re is no pneumatosis intestinalis or portal venous gas. The appendix is not identified and reported surgically absent. Peritoneum: There is no intraperitoneal free air or abdominal ascites. There is a fat-containing umbi lical hernia, as well as supraumbilical hernias. Lymphadenopathy: None. Pelvic viscera: The bladder is normal as visualized. The uterus is surgically absent. No adnexal lesi on is seen. There are large calcified granulomas within the gluteal soft tissues. Skeletal structures: The skeletal structures are osteopenic. There is been laminectomy with posterior fusion seen from T11-S1. Ventricular screws are seen at all levels between T11 and L3. There are mil d compression deformities of T12 and L1. No lytic or blastic lesions are seen. IMPRESSION: 1. Findings are consistent with a small bowel obstruction. This transitions in the right lower quadra nt where there are matted small bowel loops, and this is likely on the basis of adhesions 2. No intraperitoneal free air is seen. No focally thick walled bowel loops are identified. 3. Moderate sigmoid diverticulosis without CT evidence of acute diverticulitis. 4. Additional findings as above. Electronically signed by: Zbigniew Harrington M.D. 06/19/2018 6:28 PM
[2018-06-19 18:45] LABS: Appearance Urine Clear (Clear); Bilirubin Urine Negative (Negative); Blood Urine Negative (Negative); Color Urine Yellow; Glucose Urine UA Negative (Negative); Ketones Urine Negative (Negative); Leukocyte Esterase Urine Negative (Negative); Nitrite Urine Negative (Negative); Protein Urine Negative (Negative); Specific Gravity Urine 1.019 (1.000-1.030); Urobilinogen Urine Negative (Negative)
[2018-06-19] MEDS ORDERED: SODIUM CHLORIDE 0.9% 1000ML 1,000 ML IV SCH (19:00)
--- NOTE | 2018-06-19 19:28 | Emergency Department Note ---
Entered by Tacho Gipson acting as a scribe for History of Present Illness General Chief complaint: Abdominal Pain Stated complaint: AB PAIN Time Seen by Provider: 06/19/18 16:53 Source: patient History of Present Illness Provider complaint: abdominal pain Onset (ago): day(s) (few days ago) Location: abdomen Pain Consistency: + other (waxing and waning) Quality: + other (pain) Associated symptoms: + denies other symptoms (difficulty going to the bathroom, vaginal discharge or bleeding, hematochezia) and + cough; no fever/chills and no nausea/vomiting Treatments prior to arrival: other (percocet) The patient is an 82 year old white female w/ PMHx of diabetes mellitus, COPD, and anemia who presents to the ED w/ CC of abdominal pain beginning a few days ago. The patient reports her pain has been waxing and waning over the past few days, but states that it became more persistent today.The patient denies any fevers, chills, nausea, difficulties going to the bathroom, vaginal bleeding or discharge, or hematochezia, but admits to having a slight cough. The patient states he is a resident of [facility] and reports that they have been giving her Percocet for her pain, but states that it does not always help. She admits to a surgical history of an appendectomy and hysterectomy, but denies any history of kidney stones. The patient states she used to be on a blood thinner, but states she is not anymore. She denies any alcohol or tobacco use. The patient denies that she thinks it is something related to food that she has eaten. Home Medications Home Medications Medication Instructions Recorded Confirmed Type benzonatate [Tessalon Perles] 200 mg PO Q6H PRN 01/04/18 06/19/18 History duloxetine [Cymbalta] 60 mg PO QAM 01/04/18 06/19/18 History ferrous sulfate 325 mg PO DAILY 01/04/18 06/19/18 History insulin lispro [Humalog U-100 1 sliding scale dose SUBCUT UD 01/04/18 06/19/18 History Insulin] levothyroxine 50 mcg PO 5XWK 01/04/18 06/19/18 History lisinopril 10 mg PO QAM 01/04/18 06/19/18 History metoprolol succinate [Toprol XL] 50 mg PO QAM 01/04/18 06/19/18 History oxybutynin chloride 5 mg PO QAM 01/04/18 06/19/18 History pantoprazole [Protonix] 40 mg PO BID 01/04/18 06/19/18 History polyethylene glycol 3350 [Miralax] 34 g PO BID PRN 01/04/18 06/19/18 History pregabalin [Lyrica] 50 mg PO TID 01/04/18 06/19/18 History rosuvastatin [Crestor] 10 mg PO QAM 01/04/18 06/19/18 History tiotropium bromide [Spiriva 2 puff INHALATION QAM 01/04/18 06/19/18 History Respimat] budesonide-formoterol [Symbicort] 2 puff INHALATION BID 02/23/18 06/19/18 History [id number] [Creon] 1 cap PO TIDM 02/23/18 06/19/18 History acetaminophen [Tylenol] 650 mg PO Q4H PRN 05/12/18 06/19/18 History albuterol sulfate 2 inh INHALATION Q4H PRN 05/12/18 06/19/18 History bisacodyl [Dulcolax (bisacodyl)] 10 mg ID Q48H PRN 05/12/18 06/19/18 History cholecalciferol (vitamin D3) 2,000 unit PO QAM 05/12/18 06/19/18 History [Vitamin D3] diphenhydramine HCl [Benadryl] 50 mg PO HS PRN 05/12/18 06/19/18 History guaifenesin 400 mg PO Q8H PRN 05/12/18 06/19/18 History insulin glargine [Lantus U-100 40 unit SUBCUT BID 05/12/18 06/19/18 History Insulin] ipratropium-albuterol 3 ml INHALATION Q8H 05/12/18 06/19/18 History magnesium hydroxide [Milk of 30 ml PO Q48H PRN 05/12/18 06/19/18 History Magnesia] melatonin 5 mg PO HS PRN 05/12/18 06/19/18 History ondansetron 8 mg PO Q8H PRN 05/12/18 06/19/18 History oxycodone-acetaminophen [Percocet] 1 tab PO Q4H PRN 05/12/18 06/19/18 History loperamide 2 mg PO Q3H MDD 16MG 06/19/18 06/19/18 History Allergies Allergy/AdvReac Type Severity Reaction Status Date / Time prochlorperazine Allergy Severe TONGUE Verified 06/19/18 20:16 SWELLS/"ALMOST " nut - unspecified Allergy Mild SORE Verified 06/19/18 20:16 TONGUE/MOUTH aspirin AdvReac Intermediate SEVERE Verified 06/19/18 20:16 UPSET STOMACH erythromycin base AdvReac Intermediate ABD Verified 06/19/18 20:16 PAIN/CRAMPS/DIZZINESS NSAIDS (Non-Steroidal AdvReac Mild GI UPSET Verified 06/19/18 20:16 Anti-Inflamma tramadol AdvReac Unknown abd pain Verified 06/19/18 20:16 Past Med/Surg History Medical History Anemia Anxiety Aortic stenosis Cancer NEOPLASM LEFT BREAST Chronic back pain Chronic obstructive pulmonary disease Diabetes mellitus, type 2 Fibromyalgia GERD (gastroesophageal reflux disease) GI bleed Gastric ulcer Hypertension Hypothyroidism Pancreatic steatorrhea Peripheral neuropathy Vascular disorder Weakness GENERALIZED MUSCLE WEAKNESS Surgical History History of back surgery S/P ALAN-BSO S/P appendectomy S/P exploratory laparotomy S/P laparoscopic cholecystectomy S/P lumpectomy, left breast History of esophagogastroduodenoscopy (EGD) History of vascular access device Social History Current Living Situation: Personal Care Facility Current Living Situation Comment: LIVES AT [facility] Feels Safe at Home: Yes Safety Concerns: Feels Safe At This Time Smoking Status: Former smoker Hx Alcohol Use: No Hx Substance Use: No Beliefs That Will Affect Care: None Preferred Language: Cuban Communication Ability: Effective Structural Shop Helper Required: No Review of Systems See HPI for pertinent positives & negatives. and A total of 10 systems reviewed and were otherwise negative Physical Exam Vital Signs Vital Signs - 24 hr 06/19/18 17:05 06/19/18 17:38 06/19/18 18:22 Temperature 36.7 C Temperature Source Oral Sepsis Recent Fever Within 48 Hours No Sepsis Action Taken by Nursing No Action Required Pulse Rate 87 Pulse Rate [Left Finger] 83 82 Pulse Rhythm Regular Pulse Rhythm [Left Finger] Pulse Strength Normal Pulse Strength [Left Finger] Respiratory Rate 16 18 18 Respiratory Effort / Characteristics Non-Labored Non-Labored Spontaneous Non-Labored Spontaneous Respiratory Depth Normal Normal Normal Respiratory Pattern Regular Regular Regular Blood Pressure 124/65 Blood Pressure [Left Arm] 124/65 160/56 H Blood Pressure Mean 84 Blood Pressure Mean [Left Arm] 84 90 Blood Pressure Position Lying Blood Pressure Position [Left Arm] Lying Lying Pulse Oximetry 92 93 93 Oxygen Delivery Method Room Air Room Air Room Air 06/19/18 20:45 Temperature Temperature Source Sepsis Recent Fever Within 48 Hours Sepsis Action Taken by Nursing Pulse Rate Pulse Rate [Left Finger] 76 Pulse Rhythm Pulse Rhythm [Left Finger] Regular Pulse Strength Pulse Strength [Left Finger] Normal Respiratory Rate 16 Respiratory Effort / Characteristics Non-Labored Spontaneous Respiratory Depth Normal Respiratory Pattern Regular Blood Pressure Blood Pressure [Left Arm] 160/56 H Blood Pressure Mean Blood Pressure Mean [Left Arm] 90 Blood Pressure Position Blood Pressure Position [Left Arm] Lying Pulse Oximetry 95 Oxygen Delivery Method Room Air GENERAL: Well appearing, well nourished, NAD, non-toxic. EYE EXAM: Normal conjunctiva. PERRL, no anisocoria and EOM's grossly intact w/o pain. OROPHARYNX: Moist MM. NECK: Supple, no nuchal rigidity, no adenopathy, non-tender. No signs of meningismus. LUNGS: Clear to auscultation. Normal chest wall mechanics. HEART: NSR, no MRG. ABDOMEN: Abdomen soft, middle and right sides abdominal discomfort that is worse in right lower quadrant, normo-active bowel sounds, no masses, no rebound or guarding. Well healed midline abdominal incisional scar. BACK: No CVA TTP. SKIN: No rashes and no bruising. UPPER EXTREMITIES: Upper extremities are grossly normal. LOWER EXTREMITIES: Lower extremity edema 1+ bilaterally. No calf pain. No asymmetry or erythema. Negative Elisha's sign. NEURO EXAM: A and O x3. GCS 15. Moves all 4 extremities on command w/o issue. Course 1656: Past medical records reviewed. The patient was evaluated in room B8, and a complete history and physical examination were performed. 1844: I spoke with the patient and discussed her test results. Upon repeat exam , the patient still has abdominal pain, but states she is feeling better. I spoke w/ Dr. Bhatia who reviewed the patient's blood work and imaging and recommended admission to medicine service w/ surgical consult. I reviewed the patient's case with Dr. Juares, [facility]. He will evaluate the patient for further management. Consultations Consultation #1: Dr. Bhatia, General Surgery Dr. Juares, [facility] Administered Medications Sodium Chloride (Nss 1000ml) 1,000 mls @ 125 mls/hr IV .Q8H CLEMENTE Stop: 07/19/18 18:59 Last Admin: 06/19/18 20:08 Dose: 125 mls/hr Ioversol (Optiray 320 100ml) 93 ml IV ONCE PRN PRN Reason: Interaction Checking Stop: 06/23/18 18:10 Last Admin: 06/19/18 18:11 Dose: 93 ml Discontinued Medications Morphine Sulfate (Morphine Sulfate) 4 mg IV NOW STA Stop: 06/19/18 16:55 Last Admin: 06/19/18 17:40 Dose: 4 mg Ondansetron HCl (Zofran) 4 mg IV NOW STA Stop: 06/19/18 16:55 Last Admin: 06/19/18 17:40 Dose: 4 mg Medical Decision Making Differential Diagnosis Differential diagnosis: Includes but is not limited to gastritis, peptic ulcer disease, GERD, gallbladder disease, pancreatitis, small bowel obstruction, acute coronary syndrome, pericarditis, ischemic bowel, irritable bowel disease, irritable bowel syndrome, appendicitis, diverticulitis, malignancy, hernia, urinary tract infection, perforation, trauma, infectious. Medical Records Attestation: I reviewed the patient's medical records. Home Medications Current Medication List: was personally reviewed by me Laboratory Data Attestation: I reviewed the patient's lab results. Result diagrams: 06/19/18 17:15 06/19/18 17:15 Lab Results 06/19/18 06/19/18 06/19/18 Range/Units 17:15 17:15 17:15 WBC 11.81 H (4.8-10.8) K/uL RBC 4.36 (4.2-5.4) M/uL Hgb 13.6 (12.0-16.0) g/dL Hct 41.2 (37-47) % MCV 94.5 (80-100) fL MCH 31.2 (25-34) pg MCHC 33.0 (32-36) g/dL RDW Std Deviation 45.7 (36.4-46.3) fL RDW Coeff of Jazmin 13.1 (11.5-14.5) % Plt Count 226 (130-400) K/uL MPV 10.9 H (7.4-10.4) fL Immature Gran % (Auto) 0.3 % Neut % (Auto) 70.0 % Lymph % (Auto) 22.7 % Wayne % (Auto) 6.1 % Eos % (Auto) 0.8 % Baso % (Auto) 0.1 % Immature Gran # (Auto) 0.03 H (0.00-0.02) K/uL Neut # (Auto) 8.27 H (1.4-6.5) K/uL Lymph # (Auto) 2.68 (1.2-3.4) K/uL Wayne # (Auto) 0.72 H (0.11-0.59) K/uL Eos # (Auto) 0.10 (0-0.5) K/uL Baso # (Auto) 0.01 (0-0.2) K/uL Sodium 136 (136-145) mmol/L Potassium 4.6 (3.5-5.1) mmol/L Chloride 102 (98-107) mmol/L Carbon Dioxide 28 (21-32) mmol/L Anion Gap 6.0 (3-11) BUN 13 (7-18) mg/dl Creatinine 0.88 (0.6-1.2) mg/dl Est Cr Clr Drug Dosing 48.3 ml/min Est GFR ( Amer) 70.9 Est GFR (Non-Af Amer) 61.2 BUN/Creatinine Ratio 14.9 (10-20) Glucose 139 H (70-99) mg/dl Lactate 1.6 (0.4-2.0) mmol/L Calcium 9.2 (8.5-10.1) mg/dl Total Bilirubin 0.3 (0.2-1) mg/dl AST 19 (15-37) U/L ALT 18 (12-78) U/L Alkaline Phosphatase 104 (45-117) U/L Total Protein 7.5 (6.4-8.2) gm/dl Albumin 3.2 L (3.4-5.0) gm/dl Globulin 4.3 H (2.5-4.0) gm/dl Albumin/Globulin Ratio 0.7 L (0.9-2) Lipase 60 L (73-393) U/L Urine Color Urine Appearance (Clear) Urine pH (4.5-7.5) Ur Specific [place] (1.000-1.030) Urine Protein (Negative) Urine Glucose (UA) (Negative) Urine Ketones (Negative) Urine Blood (Negative) Urine Nitrite (Negative) Urine Bilirubin (Negative) Urine Urobilinogen (Negative) Ur Leukocyte Esterase (Negative) 06/19/18 Range/Units 18:20 WBC (4.8-10.8) K/uL RBC (4.2-5.4) M/uL Hgb (12.0-16.0) g/dL Hct (37-47) % MCV (80-100) fL MCH (25-34) pg MCHC (32-36) g/dL RDW Std Deviation (36.4-46.3) fL RDW Coeff of Jazmin (11.5-14.5) % Plt Count (130-400) K/uL MPV (7.4-10.4) fL Immature Gran % (Auto) % Neut % (Auto) % Lymph % (Auto) % Wayne % (Auto) % Eos % (Auto) % Baso % (Auto) % Immature Gran # (Auto) (0.00-0.02) K/uL Neut # (Auto) (1.4-6.5) K/uL Lymph # (Auto) (1.2-3.4) K/uL Wayne # (Auto) (0.11-0.59) K/uL Eos # (Auto) (0-0.5) K/uL Baso # (Auto) (0-0.2) K/uL Sodium (136-145) mmol/L Potassium (3.5-5.1) mmol/L Chloride (98-107) mmol/L Carbon Dioxide (21-32) mmol/L Anion Gap (3-11) BUN (7-18) mg/dl Creatinine (0.6-1.2) mg/dl Est Cr Clr Drug Dosing ml/min Est GFR ( Amer) Est GFR (Non-Af Amer) BUN/Creatinine Ratio (10-20) Glucose (70-99) mg/dl Lactate (0.4-2.0) mmol/L Calcium (8.5-10.1) mg/dl Total Bilirubin (0.2-1) mg/dl AST (15-37) U/L ALT (12-78) U/L Alkaline Phosphatase (45-117) U/L Total Protein (6.4-8.2) gm/dl Albumin (3.4-5.0) gm/dl Globulin (2.5-4.0) gm/dl Albumin/Globulin Ratio (0.9-2) Lipase (73-393) U/L Urine Color Yellow Urine Appearance Clear (Clear) Urine pH 5.0 (4.5-7.5) Ur Specific [place] 1.019 (1.000-1.030) Urine Protein Negative (Negative) Urine Glucose (UA) Negative (Negative) Urine Ketones Negative (Negative) Urine Blood Negative (Negative) Urine Nitrite Negative (Negative) Urine Bilirubin Negative (Negative) Urine Urobilinogen Negative (Negative) Ur Leukocyte Esterase Negative (Negative) Imaging Data Radiologist's Impression: Radiology results as stated below per my review and the radiologist's interpretation: CT SCAN OF THE ABDOMEN AND PELVIS WITH IV CONTRAST CLINICAL HISTORY: Generalized abdominal pain. COMPARISON STUDY: Abdominal CT dated 04/12/2018 and 10/02/2013. MRCP dated 2018. TECHNIQUE: Following the IV administration of 93 cc of Optiray 320, CT scan of the abdomen and pelvis is performed from the lung bases to the proximal femora. Images are reviewed in the axial, sagittal, and coronal planes. IV contrast was administered without complication. A dose lowering technique was utilized adhering to the principles of ALARA. The examination is degraded by streak artifact from extensive metallic spinal hardware. CT DOSE: 385.05 mGy.cm FINDINGS: Lung bases: The heart is normal in size and without pericardial effusion. The coronary arteries are densely calcified. There is a small hiatal hernia. Emphysema is suspected. A fat-containing Bochdalek hernia is noted at the right lung base. There is bibasilar scarring/atelectasis. No airspace consolidation or pleural effusion is identified. Liver: The contrast-enhanced liver is normal in size, contour, and attenuation. Pneumobilia is similar to previous. There is mild central intrahepatic biliary ductal dilatation. The hepatic veins and portal veins are patent. Gallbladder: Surgically absent. Spleen: Normal in size and attenuation. 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 Pancreas: Atrophic and grossly unremarkable. Adrenal glands: Unremarkable. Kidneys: The contrast enhanced kidneys demonstrate cortical atrophy and are without hydronephrosis. The kidneys enhance symmetrically. Abdominal vasculature: The abdominal aorta is normal in course and caliber noting advanced atherosclerotic calcification. Bowel: There is a large fat-containing supraumbilical hernia which contains nonobstructed segment of bowel. There is moderate sigmoid diverticulosis without CT evidence of acute diverticulitis. Moderate constipation is observed. The small bowel loops are distended and fluid-filled, measuring up to 3.1 cm in diameter. The distal ileum is decompressed, and the appearance is consistent with a small bowel obstruction. This transitions in the right lower quadrant where there are matted small bowel loops, and this is likely on the basis of adhesions. No focally thick walled bowel loops are identified. There is no pneumatosis intestinalis or portal venous gas. The appendix is not identified and reported surgically absent. Peritoneum: There is no intraperitoneal free air or abdominal ascites. There is a fat-containing umbilical hernia, as well as supraumbilical hernias. Lymphadenopathy: None. Pelvic viscera: The bladder is normal as visualized. The uterus is surgically absent. No adnexal lesion is seen. There are large calcified granulomas within the gluteal soft tissues. Skeletal structures: The skeletal structures are osteopenic. There is been laminectomy with posterior fusion seen from T11-S1. Ventricular screws are seen at all levels between T11 and L3. There are mild compression deformities of T12 and L1. No lytic or blastic lesions are seen. IMPRESSION: 1. Findings are consistent with a small bowel obstruction. This transitions in the right lower quadrant where there are matted small bowel loops, and this is likely on the basis of adhesions 2. No intraperitoneal free air is seen. No focally thick walled bowel loops are identified. 3. Moderate sigmoid diverticulosis without CT evidence of acute diverticulitis. 4. Additional findings as above. Electronically signed by: Zbigniew Harrington M.D. 06/19/2018 6:28 PM Blood Pressure Blood Pressure Findings: Elevated blood pressure Blood Pressure Disposition: further management by hospitalist MDM Narrative The patient is an 82 year old white female w/ PMHx of diabetes mellitus, COPD, and anemia who presents to the ED w/ CC of abdominal pain beginning a few days ago. Differential diagnosis: Includes but is not limited to gastritis, peptic ulcer disease, GERD, gallbladder disease, pancreatitis, small bowel obstruction, acute coronary syndrome, pericarditis, ischemic bowel, irritable bowel disease, irritable bowel syndrome, appendicitis, diverticulitis, malignancy, hernia, urinary tract infection, perforation, trauma, infectious. Patient was seen and evaluated the bedside. The patient has had intermittent right-sided abdominal pain for several days. Is not been more persistent more severe. The patient does localize to the right lower quadrant. The patient does have some mild central right-sided abdominal pain. The patient is a prior history of hysterectomy and appendectomy. Patient denies any recent trauma heavy lifting. No bulges or masses noted on exam. Patient able to complete along with CT of the abdomen pelvis and was given IV fluids as well as medications for symptom control. The patient denies any chest pains or shortness of breath. The patient does have a bowel obstruction based on CT. I did reevaluate the patient. The patient does still have some right lower quadrant discomfort. Did trial some ice chips. Given the patient' s significant discomfort age and likely adhesions but she would benefit from being n.p.o. with IV fluids. I did speak with the on-call hospitalist who agreed to further evaluate treat the patient. Do not believe she requires a surgical consult at this time as the patient is tolerating ice chips. I did speak with the on-call surgeon who recommended admission. Patient was made n.p.o. started on IV fluids. I did speak the on-call hospitalist who agreed to further evaluate and treat the patient. Patient was admitted to the medicine service. Impression & Plan SBO (small bowel obstruction), Abdominal pain Discharge Plan Visit Data Chief Complaint: Abdominal Pain Stated Complaint: AB PAIN ED Provider: Asher Magaña Discharge Problem: SBO (small bowel obstruction), Abdominal pain Patient Disposition: Being Evaluated by Hospitalist Forms Stand Alone Forms: My [facility] [employer] Prescriptions Prescriptions: No Action polyethylene glycol 3350 [Miralax] 17 gram Powder In Packet 34 g PO BID PRN (Reason: Constipation) RF: 0 metoprolol succinate [Toprol XL] 50 mg Tablet Extended Release 24 Hr 50 mg PO QAM RF: 0 benzonatate [Tessalon Perles] 100 mg Capsule 200 mg PO Q6H PRN (Reason: Cough) RF: 0 pantoprazole [Protonix] 40 mg Tablet,Delayed Release (Dr/Ec) 40 mg PO BID RF: 0 ferrous sulfate 325 mg (65 mg iron) Tablet 325 mg PO DAILY RF: 0 lisinopril 10 mg Tablet 10 mg PO QAM RF: 0 oxybutynin chloride 5 mg Tablet 5 mg PO QAM RF: 0 insulin lispro [Humalog U-100 Insulin] 100 unit/mL Cartridge 1 sliding scale dose SUBCUT UD RF: 0 rosuvastatin [Crestor] 10 mg Tablet 10 mg PO QAM RF: 0 duloxetine [Cymbalta] 60 mg Capsule,Delayed Release(Dr/Ec) 60 mg PO QAM RF: 0 pregabalin [Lyrica] 50 mg Capsule 50 mg PO TID RF: 0 levothyroxine 50 mcg Capsule 50 mcg PO 5XWK RF: 0 tiotropium bromide [Spiriva Respimat] 1.25 mcg/actuation Mist 2 puff INHALATION QAM RF: 0 budesonide-formoterol [Symbicort] 160-4.5 mcg/actuation Hfa Aerosol Inhaler 2 puff INHALATION BID RF: 0 [id number]-yjgfxhg [Creon] 24,000-76,000 -120,000 unit Capsule,Delayed Release(Dr/Ec) 1 cap PO TIDM RF: 0 acetaminophen [Tylenol] 325 mg Tablet 650 mg PO Q4H PRN (Reason: Pain) RF: 0 ondansetron 8 mg Tablet,Disintegrating 8 mg PO Q8H PRN (Reason: Nausea) RF: 0 oxycodone-acetaminophen [Percocet] 5-325 mg Tablet 1 tab PO Q4H PRN (Reason: Pain) RF: 0 cholecalciferol (vitamin D3) [Vitamin D3] 2,000 unit Capsule 2,000 unit PO QAM RF: 0 guaifenesin 400 mg Tablet 400 mg PO Q8H PRN (Reason: Cough) RF: 0 melatonin 5 mg Tablet 5 mg PO HS PRN (Reason: Sleep) RF: 0 magnesium hydroxide [Milk of Magnesia] 400 mg/5 mL Suspension 30 ml PO Q48H PRN (Reason: Constipation) RF: 0 bisacodyl [Dulcolax (bisacodyl)] 10 mg Suppository 10 mg ID Q48H PRN (Reason: Constipation) RF: 0 ipratropium-albuterol 0.5 mg-3 mg(2.5 mg base)/3 mL Solution For Nebulization 3 ml INHALATION Q8H RF: 0 insulin glargine [Lantus U-100 Insulin] 100 unit/mL Solution 40 unit SUBCUT BID RF: 0 albuterol sulfate 90 mcg/actuation Aerosol Powdr Breath Activated 2 inh INHALATION Q4H PRN (Reason: Shortness Of Breath) RF: 0 diphenhydramine HCl [Benadryl] 25 mg Capsule 50 mg PO HS PRN (Reason: Allergy Symptoms) RF: 0 loperamide 2 mg Capsule 2 mg PO Q3H MDD 16MG RF: 0 Referrals Referrals: Dae Duque MD [Primary Care Provider] - The scribe's documentation has been prepared under my direction and personally reviewed by me in its entirety. I confirm that the note above accurately reflects all work, treatment, procedures, and medical decision making performed by me.
--- NOTE | 2018-06-19 22:34 | History & Physical Report ---
Date of Service June 19, 2018 Assessment & Plan (1) SBO (small bowel obstruction): 82 y/o F Hx DM II, COPD, diastolic CHF, Hypothyroidism, HTN, HLD, SBO. Presenting with a primary complaint of abdominal pain. The pt describes onset of diarrhea 2 days prior which has since resolved as she had a solid BM prior to admission. She developed abdominal pain the prior evening and had one episode of vomiting. The pain persisted today as she presented to the ER for evaluation. An initial CT is consistent with an SBO and transition point in the RLQ. 1) SBO - NPO, IVF, analgesics, antiemetics provided - this may be partial as she is passing gas, had an AM BM and has not vomited in ~ 24H. She will be evaluated by surgery AM. 2) DM II - placed on a SS 3) HTN - will cont Metoprolol. PRN IV Hydralazine provided. 4) CHF - does not currently take diuretics - cont B jordyn 5) Hypothyroidism - cont Synthroid 6) COPD - cont prescribed inhalers Full code - SCDs Total time for this admit including review of labs, meds, imaging, records - discussion with pt and ER attending - 37 min History of Present Illness Chief Complaint: Abdominal pain Primary Care Provider: Dae Duque MD 82 y/o F Hx DM II, COPD, diastolic CHF, Hypothyroidism, HTN, HLD, SBO. Presenting with a primary complaint of abdominal pain. The pt describes onset of diarrhea 2 days prior which has since resolved as she had a solid BM prior to admission. She developed abdominal pain the prior evening and had one episode of vomiting. The pain persisted today as she presented to the ER for evaluation. An initial CT is consistent with an SBO and transition point in the RLQ. PMH: 1) COPD 2) IDDM 3) Breast cancer 4) Diverticulitis s/p perforation s/p laparotomy 5) Hypothyroidism 6) Incisional hernia 7) Depression 8) Diastolic CHF - Grade I 9) HTN 10) HLD 11) Pancreatic insufficiency 12) SBO 13) Moderate Surgical: 1) Back surgery x 4 2) Hysterectomy 3) Oophorectomy 4) Cholecystectomy Social: Resides in assisted living Quit smoking 15 yrs ago Does not drink ETOH Family: Noncontributory due to pt's age Allergies Allergy/AdvReac Type Severity Reaction Status Date / Time prochlorperazine Allergy Severe TONGUE Verified 06/19/18 20:16 SWELLS/"ALMOST " nut - unspecified Allergy Mild SORE Verified 06/19/18 20:16 TONGUE/MOUTH aspirin AdvReac Intermediate SEVERE Verified 06/19/18 20:16 UPSET STOMACH erythromycin base AdvReac Intermediate ABD Verified 06/19/18 20:16 PAIN/CRAMPS/DIZZINESS NSAIDS (Non-Steroidal AdvReac Mild GI UPSET Verified 06/19/18 20:16 Anti-Inflamma tramadol AdvReac Unknown abd pain Verified 06/19/18 20:16 Home Medications Home Medications Medication Instructions Recorded Confirmed Type benzonatate [Tessalon Perles] 200 mg PO Q6H PRN 01/04/18 06/19/18 History duloxetine [Cymbalta] 60 mg PO QAM 01/04/18 06/19/18 History ferrous sulfate 325 mg PO DAILY 01/04/18 06/19/18 History insulin lispro [Humalog U-100 1 sliding scale dose SUBCUT UD 01/04/18 06/19/18 History Insulin] levothyroxine 50 mcg PO 5XWK 01/04/18 06/19/18 History lisinopril 10 mg PO QAM 01/04/18 06/19/18 History metoprolol succinate [Toprol XL] 50 mg PO QAM 01/04/18 06/19/18 History oxybutynin chloride 5 mg PO QAM 01/04/18 06/19/18 History pantoprazole [Protonix] 40 mg PO BID 01/04/18 06/19/18 History polyethylene glycol 3350 [Miralax] 34 g PO BID PRN 01/04/18 06/19/18 History pregabalin [Lyrica] 50 mg PO TID 01/04/18 06/19/18 History rosuvastatin [Crestor] 10 mg PO QAM 01/04/18 06/19/18 History tiotropium bromide [Spiriva 2 puff INHALATION QAM 01/04/18 06/19/18 History Respimat] budesonide-formoterol [Symbicort] 2 puff INHALATION BID 02/23/18 06/19/18 History [id number]-[id number]-gfrorja [Creon] 1 cap PO TIDM 02/23/18 06/19/18 History acetaminophen [Tylenol] 650 mg PO Q4H PRN 05/12/18 06/19/18 History albuterol sulfate 2 inh INHALATION Q4H PRN 05/12/18 06/19/18 History bisacodyl [Dulcolax (bisacodyl)] 10 mg TN Q48H PRN 05/12/18 06/19/18 History cholecalciferol (vitamin D3) 2,000 unit PO QAM 05/12/18 06/19/18 History [Vitamin D3] diphenhydramine HCl [Benadryl] 50 mg PO HS PRN 05/12/18 06/19/18 History guaifenesin 400 mg PO Q8H PRN 05/12/18 06/19/18 History insulin glargine [Lantus U-100 40 unit SUBCUT BID 05/12/18 06/19/18 History Insulin] ipratropium-albuterol 3 ml INHALATION Q8H 05/12/18 06/19/18 History magnesium hydroxide [Milk of 30 ml PO Q48H PRN 05/12/18 06/19/18 History Magnesia] melatonin 5 mg PO HS PRN 05/12/18 06/19/18 History ondansetron 8 mg PO Q8H PRN 05/12/18 06/19/18 History oxycodone-acetaminophen [Percocet] 1 tab PO Q4H PRN 05/12/18 06/19/18 History loperamide 2 mg PO Q3H MDD 16MG 06/19/18 06/19/18 History Past Med/Surg History Medical History Anemia Anxiety Aortic stenosis Cancer NEOPLASM LEFT BREAST Chronic back pain Chronic obstructive pulmonary disease Diabetes mellitus, type 2 Fibromyalgia GERD (gastroesophageal reflux disease) GI bleed Gastric ulcer Hypertension Hypothyroidism Pancreatic steatorrhea Peripheral neuropathy Vascular disorder Weakness GENERALIZED MUSCLE WEAKNESS Surgical History History of back surgery S/P ALAN-BSO S/P appendectomy S/P exploratory laparotomy S/P laparoscopic cholecystectomy S/P lumpectomy, left breast History of esophagogastroduodenoscopy (EGD) History of vascular access device Social History Current Living Situation: Personal Care Facility Current Living Situation Comment: LIVES AT [facility] Feels Safe at Home: Yes Smoking Status: Former smoker Preferred Language: Icelandic Review of Systems Gen: Denies fevers, night sweats, rigors, fatigue, malaise, weight loss/gain ENT: Denies congestion, throat pain, hearing loss Eyes: Denies acute visual changes CV: Denies CP, palpitations Pulmonary: Denies SOB, cough, wheezing GI: DIarrhea followed by abdominal pain/nausea/vomiting Neuro: Denies acute or unilateral weakness, acute gait impairment, headache or acute visual changes Musculoskeletal: Denies joint pain, inflammation Endocrine: Denies polydipsia, polyuria Skin: Denies acute rashes or ulcers Physical Exam 2 Vital Signs (Past 24 Hours): Last Vital Signs Temp 36.7 C 06/19/18 17:05 Pulse 76 06/19/18 20:45 Resp 16 06/19/18 20:45 BP 160/56 H 06/19/18 20:45 Pulse Ox 95 06/19/18 20:45 Physical Exam: General: Pleasant, overweight, elderly F, AAO x 3, no distress ENT: No erythema or exudates, no thrush Eyes: DYLAN, EOMI Head and neck: Normocephalic, atraumatic, No JVD, neck is supple. Chest/heart: Nontender, S1,2, RRR, no murmurs, no gallops Lungs: CTAB, no wheezing or crackles Abdomen: MIld distention - nontender to palpation Neuro: AAO x 3, speech is clear, no unilateral weakness or loss of sensation, coordination intact Musculoskeletal: No joint inflammation, muscle tenderness, FROM Skin: No acute rashes or ulcers Extremities: No clubbing, cyanosis, edema Results & Data Diagnostic Findings = Ct abdomen: 1. Findings are consistent with a small bowel obstruction. This transitions in the right lower quadrant where there are matted small bowel loops, and this is likely on the basis of adhesions 2. No intraperitoneal free air is seen. No focally thick walled bowel loops are identified. 3. Moderate sigmoid diverticulosis without CT evidence of acute diverticulitis. 4. Additional findings as above.
[2018-06-20] MEDS ORDERED: MoRPHine SULFATE 4 MG/ML 1 ML CARP\\VIAL IV PRN (01:11)
[2018-06-20] MEDS ORDERED: ONDANSETRON INJ 2 MG/ML 2 ML VIAL IV PRN (01:11)
[2018-06-20] MEDS ORDERED: HydrALAZINE HCL 20 MG/ML VIAL IV PRN (01:11)
[2018-06-20] MEDS ORDERED: ALBUTEROL HFA INHALER 8.5 GM INH PRN (01:11)
[2018-06-20] MEDS: ACETAMINOPHEN 325 MG TAB PO PRN ×2 (02:37→14:26)
[2018-06-20] MEDS: SODIUM CHLORIDE 0.9% 500 ML IV SCH ×2 (02:39→07:58)
[2018-06-20] MEDS ORDERED: GLUCOSE 40% GEL 15 GM TUBE PO PRN (03:00)
[2018-06-20] MEDS ORDERED: GLUCAGON FOR INJ 1 MG VIAL IM PRN (03:00)
[2018-06-20] MEDS ORDERED: DEXTROSE 50% 50 ML SYRINGE IV PRN (03:00)
[2018-06-20] MEDS ORDERED: GLUCOSE 10 TABS/TUBE PO PRN (03:00)
[2018-06-20] MEDS ORDERED: CARBOHYDRATES FOR HYPOGLYCEMIA PO PRN (03:00)
[2018-06-20] MEDS: INSULIN ASPART 100 UNITS/ML 3 ML PEN SC SCH ×4 (05:55→20:58)
[2018-06-20] MEDS ORDERED: ALBUT/IPRATROP 3MG/0.5MG NEB 3 ML VIAL INH SCH (08:00)
[2018-06-20] MEDS: BUDESONIDE/FORMOTEROL FUMARATE 160/4.5 60 PUFFS/INHALER INH SCH ×2 (08:50→20:51)
[2018-06-20] MEDS: PREGABALIN 50 MG CAP PO SCH ×3 (08:54→20:51)
[2018-06-20] MEDS: METOPROLOL SUCC 50MG EXT REL TAB PO SCH (08:54)
[2018-06-20] MEDS: TIOTROPIUM BROMIDE 5 PUFF/90 MCG INH INH SCH (08:56)
[2018-06-20 09:01] LABS: Calcium 8.9 mg/dl (8.5-10.1); Creatinine Clr Calc Pharmacy 61.6 ml/min; Est GFR (Non-African American) 81.1; Magnesium 1.9 mg/dl (1.8-2.4); Potassium 3.7 mmol/L (3.5-5.1)
[2018-06-20] MEDS ORDERED: ALBUT/IPRATROP 3MG/0.5MG NEB 3 ML VIAL INH PRN (09:38)
[2018-06-20] MEDS: PANTOprazole 40 MG in SYRINGE 0 ML IV SCH (10:53)
--- NOTE | 2018-06-20 12:16 | Surgery Consultation ---
Date of Consultation June 20, 2018 Assessment & Plan (1) SBO (small bowel obstruction): Partial SBO -resolving - vitals stable, afebrile, mild leukocytosis on admission - + bowel function - Hypoactive bowel sounds, abdomen soft on exam, tender in RUQ and RLQ Plan: No acute surgical intervention required at this time. Recommend conservative treatment with NPO (may have ice chips and sips), IV fluids, Pain management as needed, IV Zofran as needed for nausea. Encouraged OOB to chair and ambulate continue medical management Patient was seen separately by Dr. Bhatia this morning and plan as above. Supervising Physician Co-Signing Physician Notes I have seen and examined the patient and agree with the above as written by Patsy Rea PA-C. Pt is an 82 yo female who presents with a pSBO. Continues to pass flatus and had a small BM. Continues to have abdominal pain, however she states it has somewhat improved compared to yesterday. Abdomen is soft, nondistened, mildly tender, without rebound or guarding. Continue with trial of conservative management. NPO, IVF. Encourage ambulation and maintain K goal of 4.0. History of Present Illness Reason for Consultation: SBO Requesting Physician: Juan Juares Attending Physician: Rasta Oropeza History of Present Illness Ghulam is a pleasant 82 year-old female with history of DM II, COPD, diastolic CHF , Hypothyroidism, HTN, HLD, and SBO who presented to emergency department last evening with complaint of abdominal pain. She states she had diarrhea 2 days ago and then resolved. Had normal bowel movement yesterday morning. Had persistent abdominal pain. Had history of SBO in the past. Last surgery was about a year ago (per patient) in which she possibly had an obstruction but none was found. Per records she had exploratory laparotomy for pneumonperitoneum in December [address] Mariama Grijalva. Was found to have omental and terminal ileal adhesions to the pelvis and some enteritis of distal ileum however no anil perforation. She had prolonged hospitalization for slow return of bowel function and required extensive bowel regimen and enemas. Emergency room work-up included labs which showed mild leukocytosis of 11K. CT scan of abdomen and pelvis showing dilated and fluid filled small bowel loops measuring 3.1 cm with decompressed distal ileum. Transition is in RLQ where there are matted small bowel loops consistent with adhesions. Since being admitted she states she is feeling better. Currently not complaining of any abdominal pain. No nausea or vomiting. Had a "medium" size formed bowel movement this morning with some liquid stool after. Passing some gas. Allergies Allergy/AdvReac Type Severity Reaction Status Date / Time prochlorperazine Allergy Severe TONGUE Verified 06/19/18 20:16 SWELLS/"ALMOST " nut - unspecified Allergy Mild SORE Verified 06/19/18 20:16 TONGUE/MOUTH aspirin AdvReac Intermediate SEVERE Verified 06/19/18 20:16 UPSET STOMACH erythromycin base AdvReac Intermediate ABD Verified 06/19/18 20:16 PAIN/CRAMPS/DIZZINESS NSAIDS (Non-Steroidal AdvReac Mild GI UPSET Verified 06/19/18 20:16 Anti-Inflamma tramadol AdvReac Unknown abd pain Verified 06/19/18 20:16 Home Medications Home Medications Medication Instructions Recorded Confirmed Type benzonatate [Tessalon Perles] 200 mg PO Q6H PRN 01/04/18 06/19/18 History duloxetine [Cymbalta] 60 mg PO QAM 01/04/18 06/19/18 History ferrous sulfate 325 mg PO DAILY 01/04/18 06/19/18 History insulin lispro [Humalog U-100 1 sliding scale dose SUBCUT UD 01/04/18 06/19/18 History Insulin] levothyroxine 50 mcg PO 5XWK 01/04/18 06/19/18 History lisinopril 10 mg PO QAM 01/04/18 06/19/18 History metoprolol succinate [Toprol XL] 50 mg PO QAM 01/04/18 06/19/18 History oxybutynin chloride 5 mg PO QAM 01/04/18 06/19/18 History pantoprazole [Protonix] 40 mg PO BID 01/04/18 06/19/18 History polyethylene glycol 3350 [Miralax] 34 g PO BID PRN 01/04/18 06/19/18 History pregabalin [Lyrica] 50 mg PO TID 01/04/18 06/19/18 History rosuvastatin [Crestor] 10 mg PO QAM 01/04/18 06/19/18 History tiotropium bromide [Spiriva 2 puff INHALATION QAM 01/04/18 06/19/18 History Respimat] budesonide-formoterol [Symbicort] 2 puff INHALATION BID 02/23/18 06/19/18 History ikykkm-bkncabzu-koonfao [Creon] 1 cap PO TIDM 02/23/18 06/19/18 History acetaminophen [Tylenol] 650 mg PO Q4H PRN 05/12/18 06/19/18 History albuterol sulfate 2 inh INHALATION Q4H PRN 05/12/18 06/19/18 History bisacodyl [Dulcolax (bisacodyl)] 10 mg NM Q48H PRN 05/12/18 06/19/18 History cholecalciferol (vitamin D3) 2,000 unit PO QAM 05/12/18 06/19/18 History [Vitamin D3] diphenhydramine HCl [Benadryl] 50 mg PO HS PRN 05/12/18 06/19/18 History guaifenesin 400 mg PO Q8H PRN 05/12/18 06/19/18 History insulin glargine [Lantus U-100 40 unit SUBCUT BID 05/12/18 06/19/18 History Insulin] ipratropium-albuterol 3 ml INHALATION Q8H 05/12/18 06/19/18 History magnesium hydroxide [Milk of 30 ml PO Q48H PRN 05/12/18 06/19/18 History Magnesia] melatonin 5 mg PO HS PRN 05/12/18 06/19/18 History ondansetron 8 mg PO Q8H PRN 05/12/18 06/19/18 History oxycodone-acetaminophen [Percocet] 1 tab PO Q4H PRN 05/12/18 06/19/18 History loperamide 2 mg PO Q3H MDD 16MG 06/19/18 06/19/18 History Patient History Medical History Anemia Anxiety Aortic stenosis Cancer NEOPLASM LEFT BREAST Chronic back pain Chronic obstructive pulmonary disease Diabetes mellitus, type 2 Fibromyalgia GERD (gastroesophageal reflux disease) GI bleed Gastric ulcer Hypertension Hypothyroidism Pancreatic steatorrhea Peripheral neuropathy Vascular disorder Weakness GENERALIZED MUSCLE WEAKNESS Surgical History History of back surgery S/P ALAN-BSO S/P appendectomy S/P exploratory laparotomy S/P laparoscopic cholecystectomy S/P lumpectomy, left breast History of esophagogastroduodenoscopy (EGD) History of vascular access device Social History Current Living Situation: Personal Care Facility Current Living Situation Comment: LIVES AT [facility] Feels Safe at Home: Yes Safety Concerns: Feels Safe At This Time Smoking Status: Former smoker Hx Alcohol Use: No Hx Substance Use: No Beliefs That Will Affect Care: None Communication Ability: Effective Review of Systems Constitutional: as per Subjective / HPI Physical Exam 2 Vital Signs (Past 24 Hours): Last Vital Signs Temp 36.6 C 06/20/18 12:00 Pulse 86 06/20/18 12:00 Resp 12 06/20/18 12:00 BP 109/62 06/20/18 12:00 Pulse Ox 91 06/20/18 12:00 Constitutional: WD/WN, vitals as above no acute distress Respiratory: normal respiratory effort, lungs clear to auscultation Cardiovascular: RRR, no murmur, no edema Gastrointestinal (Abdomen): Inspection/Auscultation: abdomen normal to inspection and + abdominal surgical scar (midline laparotomy scar); abdomen not distended Percussion/Palpation: + abdomen tender (RUQ and RLQ) and abdomen soft; no guarding and abdomen not rigid Skin: no rashes, warm and dry Psychiatric: A+Ox3, euthymic affect Results & Data Laboratory Results 06/20/18 06/20/18 06/20/18 Range/Units 11:50 07:36 05:54 WBC (4.8-10.8) K/uL RBC (4.2-5.4) M/uL Hgb (12.0-16.0) g/dL Hct (37-47) % MCV (80-100) fL MCH (25-34) pg MCHC (32-36) g/dL RDW Std Deviation (36.4-46.3) fL RDW Coeff of Jazmin (11.5-14.5) % Plt Count (130-400) K/uL MPV (7.4-10.4) fL Immature Gran % (Auto) % Neut % (Auto) % Lymph % (Auto) % Weber % (Auto) % Eos % (Auto) % Baso % (Auto) % Immature Gran # (Auto) (0.00-0.02) K/uL Neut # (Auto) (1.4-6.5) K/uL Lymph # (Auto) (1.2-3.4) K/uL Weber # (Auto) (0.11-0.59) K/uL Eos # (Auto) (0-0.5) K/uL Baso # (Auto) (0-0.2) K/uL Sodium 139 (136-145) mmol/L Potassium 3.7 D (3.5-5.1) mmol/L Chloride 106 (98-107) mmol/L Carbon Dioxide 26 (21-32) mmol/L Anion Gap 7.0 (3-11) BUN 10 (7-18) mg/dl Creatinine 0.69 (0.6-1.2) mg/dl Est Cr Clr Drug Dosing 61.6 ml/min Est GFR ( Amer) 94.0 Est GFR (Non-Af Amer) 81.1 BUN/Creatinine Ratio 14.0 (10-20) Glucose 66 L (70-99) mg/dl POC Glucose 88 77 (70-99) Lactate (0.4-2.0) mmol/L Calcium 8.9 (8.5-10.1) mg/dl Magnesium 1.9 (1.8-2.4) mg/dl Total Bilirubin (0.2-1) mg/dl AST (15-37) U/L ALT (12-78) U/L Alkaline Phosphatase (45-117) U/L Total Protein (6.4-8.2) gm/dl Albumin (3.4-5.0) gm/dl Globulin (2.5-4.0) gm/dl Albumin/Globulin Ratio (0.9-2) Lipase (73-393) U/L Urine Color Urine Appearance (Clear) Urine pH (4.5-7.5) Ur Specific Pendroy (1.000-1.030) Urine Protein (Negative) Urine Glucose (UA) (Negative) Urine Ketones (Negative) Urine Blood (Negative) Urine Nitrite (Negative) Urine Bilirubin (Negative) Urine Urobilinogen (Negative) Ur Leukocyte Esterase (Negative) 06/20/18 06/19/18 06/19/18 Range/Units 01:41 18:20 17:15 WBC (4.8-10.8) K/uL RBC (4.2-5.4) M/uL Hgb (12.0-16.0) g/dL Hct (37-47) % MCV (80-100) fL MCH (25-34) pg MCHC (32-36) g/dL RDW Std Deviation (36.4-46.3) fL RDW Coeff of Jazmin (11.5-14.5) % Plt Count (130-400) K/uL MPV (7.4-10.4) fL Immature Gran % (Auto) % Neut % (Auto) % Lymph % (Auto) % Weber % (Auto) % Eos % (Auto) % Baso % (Auto) % Immature Gran # (Auto) (0.00-0.02) K/uL Neut # (Auto) (1.4-6.5) K/uL Lymph # (Auto) (1.2-3.4) K/uL Weber # (Auto) (0.11-0.59) K/uL Eos # (Auto) (0-0.5) K/uL Baso # (Auto) (0-0.2) K/uL Sodium (136-145) mmol/L Potassium (3.5-5.1) mmol/L Chloride (98-107) mmol/L Carbon Dioxide (21-32) mmol/L Anion Gap (3-11) BUN (7-18) mg/dl Creatinine (0.6-1.2) mg/dl Est Cr Clr Drug Dosing ml/min Est GFR ( Amer) Est GFR (Non-Af Amer) BUN/Creatinine Ratio (10-20) Glucose (70-99) mg/dl POC Glucose 96 (70-99) Lactate 1.6 (0.4-2.0) mmol/L Calcium (8.5-10.1) mg/dl Magnesium (1.8-2.4) mg/dl Total Bilirubin (0.2-1) mg/dl AST (15-37) U/L ALT (12-78) U/L Alkaline Phosphatase (45-117) U/L Total Protein (6.4-8.2) gm/dl Albumin (3.4-5.0) gm/dl Globulin (2.5-4.0) gm/dl Albumin/Globulin Ratio (0.9-2) Lipase (73-393) U/L Urine Color Yellow Urine Appearance Clear (Clear) Urine pH 5.0 (4.5-7.5) Ur Specific Pendroy 1.019 (1.000-1.030) Urine Protein Negative (Negative) Urine Glucose (UA) Negative (Negative) Urine Ketones Negative (Negative) Urine Blood Negative (Negative) Urine Nitrite Negative (Negative) Urine Bilirubin Negative (Negative) Urine Urobilinogen Negative (Negative) Ur Leukocyte Esterase Negative (Negative) 06/19/18 06/19/18 Range/Units 17:15 17:15 WBC 11.81 H (4.8-10.8) K/uL RBC 4.36 (4.2-5.4) M/uL Hgb 13.6 (12.0-16.0) g/dL Hct 41.2 (37-47) % MCV 94.5 (80-100) fL MCH 31.2 (25-34) pg MCHC 33.0 (32-36) g/dL RDW Std Deviation 45.7 (36.4-46.3) fL RDW Coeff of Jazmin 13.1 (11.5-14.5) % Plt Count 226 (130-400) K/uL MPV 10.9 H (7.4-10.4) fL Immature Gran % (Auto) 0.3 % Neut % (Auto) 70.0 % Lymph % (Auto) 22.7 % Weber % (Auto) 6.1 % Eos % (Auto) 0.8 % Baso % (Auto) 0.1 % Immature Gran # (Auto) 0.03 H (0.00-0.02) K/uL Neut # (Auto) 8.27 H (1.4-6.5) K/uL Lymph # (Auto) 2.68 (1.2-3.4) K/uL Weber # (Auto) 0.72 H (0.11-0.59) K/uL Eos # (Auto) 0.10 (0-0.5) K/uL Baso # (Auto) 0.01 (0-0.2) K/uL Sodium 136 (136-145) mmol/L Potassium 4.6 (3.5-5.1) mmol/L Chloride 102 (98-107) mmol/L Carbon Dioxide 28 (21-32) mmol/L Anion Gap 6.0 (3-11) BUN 13 (7-18) mg/dl Creatinine 0.88 (0.6-1.2) mg/dl Est Cr Clr Drug Dosing 48.3 ml/min Est GFR ( Amer) 70.9 Est GFR (Non-Af Amer) 61.2 BUN/Creatinine Ratio 14.9 (10-20) Glucose 139 H (70-99) mg/dl POC Glucose (70-99) Lactate (0.4-2.0) mmol/L Calcium 9.2 (8.5-10.1) mg/dl Magnesium (1.8-2.4) mg/dl Total Bilirubin 0.3 (0.2-1) mg/dl AST 19 (15-37) U/L ALT 18 (12-78) U/L Alkaline Phosphatase 104 (45-117) U/L Total Protein 7.5 (6.4-8.2) gm/dl Albumin 3.2 L (3.4-5.0) gm/dl Globulin 4.3 H (2.5-4.0) gm/dl Albumin/Globulin Ratio 0.7 L (0.9-2) Lipase 60 L (73-393) U/L Urine Color Urine Appearance (Clear) Urine pH (4.5-7.5) Ur Specific Pendroy (1.000-1.030) Urine Protein (Negative) Urine Glucose (UA) (Negative) Urine Ketones (Negative) Urine Blood (Negative) Urine Nitrite (Negative) Urine Bilirubin (Negative) Urine Urobilinogen (Negative) Ur Leukocyte Esterase (Negative) Diagnostic Findings CT SCAN OF THE ABDOMEN AND PELVIS WITH IV CONTRAST CLINICAL HISTORY: Generalized abdominal pain. COMPARISON STUDY: Abdominal CT dated 04/12/2018 and 10/02/2013. MRCP dated 2018. TECHNIQUE: Following the IV administration of 93 cc of Optiray 320, CT scan of the abdomen and pelvis is performed from the lung bases to the proximal femora. Images are reviewed in the axial, sagittal, and coronal planes. IV contrast was administered without complication. A dose lowering technique was utilized adhering to the principles of ALARA. The examination is degraded by streak artifact from extensive metallic spinal hardware. CT DOSE: 385.05 mGy.cm FINDINGS: Lung bases: The heart is normal in size and without pericardial effusion. The coronary arteries are densely calcified. There is a small hiatal hernia. Emphysema is suspected. A fat-containing Bochdalek hernia is noted at the right lung base. There is bibasilar scarring/atelectasis. No airspace consolidation or pleural effusion is identified. Liver: The contrast-enhanced liver is normal in size, contour, and attenuation. Pneumobilia is similar to previous. There is mild central intrahepatic biliary ductal dilatation. The hepatic veins and portal veins are patent. Gallbladder: Surgically absent. Spleen: Normal in size and attenuation. 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 Pancreas: Atrophic and grossly unremarkable. Adrenal glands: Unremarkable. Kidneys: The contrast enhanced kidneys demonstrate cortical atrophy and are without hydronephrosis. The kidneys enhance symmetrically. Abdominal vasculature: The abdominal aorta is normal in course and caliber noting advanced atherosclerotic calcification. Bowel: There is a large fat-containing supraumbilical hernia which contains nonobstructed segment of bowel. There is moderate sigmoid diverticulosis without CT evidence of acute diverticulitis. Moderate constipation is observed. The small bowel loops are distended and fluid-filled, measuring up to 3.1 cm in diameter. The distal ileum is decompressed, and the appearance is consistent with a small bowel obstruction. This transitions in the right lower quadrant where there are matted small bowel loops, and this is likely on the basis of adhesions. No focally thick walled bowel loops are identified. There is no pneumatosis intestinalis or portal venous gas. The appendix is not identified and reported surgically absent. Peritoneum: There is no intraperitoneal free air or abdominal ascites. There is a fat-containing umbilical hernia, as well as supraumbilical hernias. Lymphadenopathy: None. Pelvic viscera: The bladder is normal as visualized. The uterus is surgically absent. No adnexal lesion is seen. There are large calcified granulomas within the gluteal soft tissues. Skeletal structures: The skeletal structures are osteopenic. There is been laminectomy with posterior fusion seen from T11-S1. Ventricular screws are seen at all levels between T11 and L3. There are mild compression deformities of T12 and L1. No lytic or blastic lesions are seen. IMPRESSION: 1. Findings are consistent with a small bowel obstruction. This transitions in the right lower quadrant where there are matted small bowel loops, and this is likely on the basis of adhesions 2. No intraperitoneal free air is seen. No focally thick walled bowel loops are identified. 3. Moderate sigmoid diverticulosis without CT evidence of acute diverticulitis. 4. Additional findings as above.
[2018-06-20] MEDS ORDERED: Nursing to Pharmacy Communication ONE (17:48)
--- NOTE | 2018-06-20 23:45 | Hospitalist Progress Note ---
Date of Service June 20, 2018 Assessment & Plan (1) SBO (small bowel obstruction): 82 y/o F Hx DM II, COPD, diastolic CHF, Hypothyroidism, HTN, HLD, SBO. Presenting with a primary complaint of abdominal pain. The pt describes onset of diarrhea 2 days prior which has since resolved as she had a solid BM prior to admission. She developed abdominal pain the prior evening and had one episode of vomiting. The pain persisted today as she presented to the ER for evaluation. An initial CT is consistent with an SBO and transition point in the RLQ. 1) Partial small bowel obstruction likely secondary to adhesions Given her history of previous abdominal surgeries, likely provoking adhesions. Patient will be switched to a clear liquid diet and will monitor. Again this may be partial as she is passing gas, had an AM BM and has not vomited in ~ 24H. She appears to be improving with conservative management. 2) DM II - placed on a SS 3) HTN - will cont Metoprolol. PRN IV Hydralazine provided. 4) CHF - does not currently take diuretics - cont B jordyn 5) Hypothyroidism - cont Synthroid 6) COPD - cont prescribed inhalers Full code - SCDs Spent 25 minutes in management of patient. Subjective Patient reports passing gas and had a small bowel moveemnt. Patient has been NPO and is requesting to eat. Patient reports her abdominal pain has improved. Constitutional: no sweats and no malaise Eyes: no blind spots and no discharge Ear, Nose, Mouth, Throat: no ear pain and no tinnitus Respiratory: no cough Cardiovascular: no chest pain Gastrointestinal: as per Subjective / HPI and + abdominal pain; no nausea Genitourinary (Female): no dysuria Musculoskeletal: no swelling Integumentary: no rash, no non-healing lesions and no skin ulcer Physical Exam Vital Signs (Past 24 Hours): Last Vital Signs Temp 37.3 C 06/20/18 23:19 Pulse 88 06/20/18 23:19 Resp 16 06/20/18 23:19 BP 115/63 06/20/18 23:19 Pulse Ox 91 06/20/18 23:19 Physical Exam: General: Pleasant, overweight, elderly F, AAO x 3, no distress ENT: No erythema or exudates, no thrush Eyes: DYLAN, EOMI Head and neck: Normocephalic, atraumatic, No JVD, neck is supple. Chest/heart: Nontender, S1,2, RRR, no murmurs, no gallops Lungs: CTAB, no wheezing or crackles Abdomen: MIld distention - mildly tender to palpation Neuro: AAO x 3, speech is clear, no unilateral weakness or loss of sensation, coordination intact Musculoskeletal: No joint inflammation, muscle tenderness, FROM Skin: No acute rashes or ulcers Extremities: No clubbing, cyanosis, edema
[2018-06-21] MEDS: ACETAMINOPHEN 325 MG TAB PO PRN ×4 (00:40→21:02)
[2018-06-21] MEDS: BUDESONIDE/FORMOTEROL FUMARATE 160/4.5 60 PUFFS/INHALER INH SCH ×2 (07:28→20:42)
[2018-06-21] MEDS: TIOTROPIUM BROMIDE 5 PUFF/90 MCG INH INH SCH (07:29)
[2018-06-21] MEDS: METOPROLOL SUCC 50MG EXT REL TAB PO SCH (07:29)
[2018-06-21] MEDS: PREGABALIN 50 MG CAP PO SCH ×3 (07:32→20:42)
[2018-06-21] MEDS: INSULIN ASPART 100 UNITS/ML 3 ML PEN SC SCH ×4 (08:56→20:45)
--- NOTE | 2018-06-21 10:41 | Surgery Progress Note ---
Date of Service June 21, 2018 Assessment & Plan (1) SBO (small bowel obstruction): Partial SBO -resolving - vitals stable, afebrile, mild leukocytosis on admission - + bowel function - Hypoactive bowel sounds, abdomen soft on exam, tender in RLQ improving (no guarding or rebound) Plan: No acute surgical intervention required at this time. Recommend continue conservative treatment. Advance to full liquid diet for breakfast Encouraged OOB to chair and ambulate continue medical management Dr. Riggins was present during my examination and agrees with above Subjective feeling okay this morning still having some abdominal pain mostly in the right lower abdomen but improved compared to yesterday passing gas and bowel movements tolerated clear liquids for dinner last night no nausea or vomiting Physical Exam Vital Signs (Past 24 Hours): Last Vital Signs Temp 36.5 C 06/21/18 07:34 Pulse 74 06/21/18 07:34 Resp 18 06/21/18 07:34 BP 150/90 H 06/21/18 07:34 Pulse Ox 93 06/21/18 07:34 Constitutional: WD/WN, vitals as above no acute distress and not ill appearing Respiratory: no respiratory distress Gastrointestinal (Abdomen): Inspection/Auscultation: + abdominal surgical scar (midline laparotomy scar); abdomen not distended Percussion/Palpation: + abdomen tender (RLQ on deep palpation, no guarding or rigidity) and abdomen soft; no guarding and abdomen not rigid Skin: no rashes, warm and dry Psychiatric: A+Ox3, euthymic affect Results & Data Laboratory Results 06/21/18 06/20/18 06/20/18 Range/Units 08:05 20:32 18:04 Sodium (136-145) mmol/L Potassium (3.5-5.1) mmol/L Chloride (98-107) mmol/L Carbon Dioxide (21-32) mmol/L Anion Gap (3-11) BUN (7-18) mg/dl Creatinine (0.6-1.2) mg/dl Est Cr Clr Drug Dosing ml/min Est GFR ( Amer) Est GFR (Non-Af Amer) BUN/Creatinine Ratio (10-20) Glucose (70-99) mg/dl POC Glucose 124 H 216 H 71 (70-99) Calcium (8.5-10.1) mg/dl Magnesium (1.8-2.4) mg/dl 06/20/18 06/20/18 Range/Units 11:50 07:36 Sodium 139 (136-145) mmol/L Potassium 3.7 D (3.5-5.1) mmol/L Chloride 106 (98-107) mmol/L Carbon Dioxide 26 (21-32) mmol/L Anion Gap 7.0 (3-11) BUN 10 (7-18) mg/dl Creatinine 0.69 (0.6-1.2) mg/dl Est Cr Clr Drug Dosing 61.6 ml/min Est GFR ( Amer) 94.0 Est GFR (Non-Af Amer) 81.1 BUN/Creatinine Ratio 14.0 (10-20) Glucose 66 L (70-99) mg/dl POC Glucose 88 (70-99) Calcium 8.9 (8.5-10.1) mg/dl Magnesium 1.9 (1.8-2.4) mg/dl
[2018-06-21] MEDS: PANTOprazole 40 MG in SYRINGE 0 ML IV SCH (10:48)
--- NOTE | 2018-06-21 22:51 | Hospitalist Progress Note ---
Date of Service June 21, 2018 Assessment & Plan (1) SBO (small bowel obstruction): 82 y/o F Hx DM II, COPD, diastolic CHF, Hypothyroidism, HTN, HLD, SBO. Presenting with a primary complaint of abdominal pain. The pt describes onset of diarrhea 2 days prior which has since resolved as she had a solid BM prior to admission. She developed abdominal pain the prior evening and had one episode of vomiting. The pain persisted today as she presented to the ER for evaluation. An initial CT is consistent with an SBO and transition point in the RLQ. 1) Partial small bowel obstruction likely secondary to adhesions Given her history of previous abdominal surgeries, likely provoking adhesions. Patient will be switched to a regular diet. If she continues to tolerate this, I anticipate a discharge in the AM. Again this may be partial small bwoel obstruction that likely resolved. She appears to be improving with conservative management. If this occurs again, may be a candidate for surgery. Perhaps laparoscopic. 2) DM II - placed on a SS 3) HTN - will cont Metoprolol. PRN IV Hydralazine provided. 4) CHF - does not currently take diuretics - cont B jordyn 5) Hypothyroidism - cont Synthroid 6) COPD - cont prescribed inhalers Full code - SCDs Spent 25 minutes in management of patient. Subjective Patient continues to be having BM and pass gas. Patient is tolerating her diet and was transitioned to a full liquid. She tolerated this and will be transitioned to a regualr diet in the evening. Her abdominal pain and nausea has resolved. Gastrointestinal: as per Subjective / HPI and + abdominal pain; no nausea Physical Exam Vital Signs (Past 24 Hours): Last Vital Signs Temp 36.5 C 06/21/18 15:21 Pulse 80 06/21/18 15:21 Resp 18 06/21/18 15:21 BP 116/67 06/21/18 15:21 Pulse Ox 92 06/21/18 15:21 Physical Exam: General: Pleasant, overweight, elderly F, AAO x 3, no distress ENT: No erythema or exudates, no thrush Eyes: DYLAN, EOMI Head and neck: Normocephalic, atraumatic, No JVD, neck is supple. Chest/heart: Nontender, S1,2, RRR, no murmurs, no gallops Lungs: CTAB, no wheezing or crackles Abdomen: MIld distention - nontender to palpation Neuro: AAO x 3, speech is clear, no unilateral weakness or loss of sensation, coordination intact Musculoskeletal: No joint inflammation, muscle tenderness, FROM Skin: No acute rashes or ulcers Extremities: No clubbing, cyanosis, edema
[2018-06-22] MEDS: ACETAMINOPHEN 325 MG TAB PO PRN (01:06)
[2018-06-22] MEDS ORDERED: COUGH DROP (SUGAR FREE) LOZ 24 LOZ/1 BOX BUCCAL ONE (03:45)
[2018-06-22] MEDS: INSULIN ASPART 100 UNITS/ML 3 ML PEN SC SCH ×2 (08:00→12:22)
[2018-06-22] MEDS: BUDESONIDE/FORMOTEROL FUMARATE 160/4.5 60 PUFFS/INHALER INH SCH (08:44)
[2018-06-22] MEDS: METOPROLOL SUCC 50MG EXT REL TAB PO SCH (08:46)
[2018-06-22] MEDS: PREGABALIN 50 MG CAP PO SCH (08:46)
[2018-06-22] MEDS: TIOTROPIUM BROMIDE 5 PUFF/90 MCG INH INH SCH (08:48)
--- NOTE | 2018-06-22 09:04 | Surgery Progress Note ---
Date of Service June 22, 2018 Assessment & Plan (1) SBO (small bowel obstruction): Partial SBO -resolved - vitals stable, afebrile, mild leukocytosis on admission - + bowel function - abdomen soft on exam, tender in RLQ, improving (no guarding or rebound) Plan: No acute surgical intervention required at this time. continue carb consistent diet Okay from surgical standpoint for discharge Our services signing off, thank you for consultation Dr. Bhatia has seen and examined patient, agrees with above. Supervising Physician Co-Signing Physician Notes I have seen and evaluated the patient and the patient's records and agree with the plan above as detailed by Patys Rea PA-C. Pt with resolving SBO. Tolerating diet and having bowel function. Mild RLQ tenderness. No further surgical intertention at this time. Will sign off, please do not hesitate to contact us for further questions or concerns. Subjective Feeling good mild abdominal pain in RLQ, about the same tolerated regular diet last night, has not had breakfast this am no nausea or vomiting having bowel movements Physical Exam Vital Signs (Past 24 Hours): Last Vital Signs Temp 36.6 C 06/22/18 08:00 Pulse 74 06/22/18 08:00 Resp 14 06/22/18 08:00 BP 149/77 H 06/22/18 08:00 Pulse Ox 90 06/22/18 08:00 Constitutional: WD/WN, vitals as above no acute distress and not ill appearing Respiratory: normal respiratory effort, lungs clear to auscultation no respiratory distress Gastrointestinal (Abdomen): Inspection/Auscultation: abdomen normal to inspection and + abdominal surgical scar (midline laparotomy scar); abdomen not distended Percussion/Palpation: + abdomen tender (RLQ on deep palpation, no guarding or rigidity) and abdomen soft; no guarding and abdomen not rigid Skin: no rashes, warm and dry Psychiatric: A+Ox3, euthymic affect
[2018-06-22] MEDS: PANTOprazole 40 MG in SYRINGE 0 ML IV SCH (10:53)
--- NOTE | 2018-06-23 06:20 | Discharge Summary ---
Date of Service June 27, 2018 Admission HPI Per Admitting Provider 82 y/o F Hx DM II, COPD, diastolic CHF, Hypothyroidism, HTN, HLD, SBO. Presenting with a primary complaint of abdominal pain. The pt describes onset of diarrhea 2 days prior which has since resolved as she had a solid BM prior to admission. She developed abdominal pain the prior evening and had one episode of vomiting. The pain persisted today as she presented to the ER for evaluation. An initial CT is consistent with an SBO and transition point in the RLQ. PMH: 1) COPD 2) IDDM 3) Breast cancer 4) Diverticulitis s/p perforation s/p laparotomy 5) Hypothyroidism 6) Incisional hernia 7) Depression 8) Diastolic CHF - Grade I 9) HTN 10) HLD 11) Pancreatic insufficiency 12) SBO 13) Moderate Surgical: 1) Back surgery x 4 2) Hysterectomy 3) Oophorectomy 4) Cholecystectomy Social: Resides in assisted living Quit smoking 15 yrs ago Does not drink ETOH Family: Noncontributory due to pt's age Discharge Data Consultations 06/19/18 19:49 ED Decision to Admit Stat 06/20/18 01:11 Consult General Surgery Routine
--- NOTE | 2018-06-26 09:51 | Discharge Summary ---
Date of Service Jun 22, 2018 Admission HPI Per Admitting Provider 82 y/o F Hx DM II, COPD, diastolic CHF, Hypothyroidism, HTN, HLD, SBO. Presenting with a primary complaint of abdominal pain. The pt describes onset of diarrhea 2 days prior which has since resolved as she had a solid BM prior to admission. She developed abdominal pain the prior evening and had one episode of vomiting. The pain persisted today as she presented to the ER for evaluation. An initial CT is consistent with an SBO and transition point in the RLQ. PMH: 1) COPD 2) IDDM 3) Breast cancer 4) Diverticulitis s/p perforation s/p laparotomy 5) Hypothyroidism 6) Incisional hernia 7) Depression 8) Diastolic CHF - Grade I 9) HTN 10) HLD 11) Pancreatic insufficiency 12) SBO 13) Moderate Surgical: 1) Back surgery x 4 2) Hysterectomy 3) Oophorectomy 4) Cholecystectomy Social: Resides in assisted living Quit smoking 15 yrs ago Does not drink ETOH Family: Noncontributory due to pt's age Principal Diagnosis SBO Discharge Exam General: Pleasant, overweight, elderly F, AAO x 3, no distress ENT: No erythema or exudates, no thrush Eyes: DYLAN, EOMI Head and neck: Normocephalic, atraumatic, No JVD, neck is supple. Chest/heart: Nontender, S1,2, RRR, no murmurs, no gallops Lungs: CTAB, no wheezing or crackles Abdomen: MIld distention - nontender to palpation Neuro: AAO x 3, speech is clear, no unilateral weakness or loss of sensation, coordination intact Musculoskeletal: No joint inflammation, muscle tenderness, FROM Skin: No acute rashes or ulcers Extremities: No clubbing, cyanosis, edema Discharge Data Allergies Allergy/AdvReac Type Severity Reaction Status Date / Time prochlorperazine Allergy Severe TONGUE Verified 06/19/18 20:16 SWELLS/"ALMOST " nut - unspecified Allergy Mild SORE Verified 06/19/18 20:16 TONGUE/MOUTH aspirin AdvReac Intermediate SEVERE Verified 06/19/18 20:16 UPSET STOMACH erythromycin base AdvReac Intermediate ABD Verified 06/19/18 20:16 PAIN/CRAMPS/DIZZINESS NSAIDS (Non-Steroidal AdvReac Mild GI UPSET Verified 06/19/18 20:16 Anti-Inflamma tramadol AdvReac Unknown abd pain Verified 06/19/18 20:16 Consultations 06/19/18 19:49 ED Decision to Admit Stat 06/20/18 01:11 Consult General Surgery Routine Ordered Studies 06/19/18 16:54 CT abd pelvis IV con only Stat Hospital Course (1) SBO (small bowel obstruction): 82 y/o F Hx DM II, COPD, diastolic CHF, Hypothyroidism, HTN, HLD, SBO. Presenting with a primary complaint of abdominal pain. The pt describes onset of diarrhea 2 days prior which has since resolved as she had a solid BM prior to admission. She developed abdominal pain the prior evening and had one episode of vomiting. The pain persisted today as she presented to the ER for evaluation. An initial CT is consistent with an SBO and transition point in the RLQ. 1) Partial small bowel obstruction likely secondary to adhesions Given her history of previous abdominal surgeries, likely provoking adhesions. Patient will be switched to a regular diet. If she continues to tolerate this, I anticipate a discharge in the AM. Again this may be partial small bwoel obstruction that likely resolved. She appears to be improving with conservative management. If this occurs again, may be a candidate for surgery. Perhaps laparoscopic. On day of discharge, patient was tolerating a regular diet. 2) DM II - placed on a SS 3) HTN - will cont Metoprolol. PRN IV Hydralazine provided. 4) CHF - does not currently take diuretics - cont B jordyn 5) Hypothyroidism - cont Synthroid 6) COPD - cont prescribed inhalers Full code - SCDs Total Time Total Time Spent Total Time Spent (In Minutes): 32 Total Time Includes: Examination of the Patient, Discharge Planning and Medication Reconciliation Discharge Plan Discharge Items Patient Disposition: Personal [facility] Living Reason For Visit: SBO Discharge Diagnosis: Partial Small bowel obstruction Discharge Goals: Decrease discomfort Activity: Resume your previous activity Non-emergency contact: Primary Care Provider Call non-emergency contact if: you have any medication questions Diet: Carb Consistent or DM2 Addtl Provider Instructions: You were treated conservatively for a partial Small bowel obstruction. It appears this has resolved. Prescriptions: Continued polyethylene glycol 3350 [Miralax] 17 gram Powder In Packet 34 g PO BID PRN (Reason: Constipation) RF: 0 metoprolol succinate [Toprol XL] 50 mg Tablet Extended Release 24 Hr 50 mg PO QAM RF: 0 benzonatate [Tessalon Perles] 100 mg Capsule 200 mg PO Q6H PRN (Reason: Cough) RF: 0 pantoprazole [Protonix] 40 mg Tablet,Delayed Release (Dr/Ec) 40 mg PO BID RF: 0 ferrous sulfate 325 mg (65 mg iron) Tablet 325 mg PO DAILY RF: 0 lisinopril 10 mg Tablet 10 mg PO QAM RF: 0 oxybutynin chloride 5 mg Tablet 5 mg PO QAM RF: 0 insulin lispro [Humalog U-100 Insulin] 100 unit/mL Cartridge 1 sliding scale dose SUBCUT UD RF: 0 rosuvastatin [Crestor] 10 mg Tablet 10 mg PO QAM RF: 0 duloxetine [Cymbalta] 60 mg Capsule,Delayed Release(Dr/Ec) 60 mg PO QAM RF: 0 pregabalin [Lyrica] 50 mg Capsule 50 mg PO TID RF: 0 levothyroxine 50 mcg Capsule 50 mcg PO 5XWK RF: 0 tiotropium bromide [Spiriva Respimat] 1.25 mcg/actuation Mist 2 puff INHALATION QAM RF: 0 budesonide-formoterol [Symbicort] 160-4.5 mcg/actuation Hfa Aerosol Inhaler 2 puff INHALATION BID RF: 0 [id number] [Creon] 24,000-76,000 -120,000 unit Capsule,Delayed Release(Dr/Ec) 1 cap PO TIDM RF: 0 acetaminophen [Tylenol] 325 mg Tablet 650 mg PO Q4H PRN (Reason: Pain) RF: 0 ondansetron 8 mg Tablet,Disintegrating 8 mg PO Q8H PRN (Reason: Nausea) RF: 0 oxycodone-acetaminophen [Percocet] 5-325 mg Tablet 1 tab PO Q4H PRN (Reason: Pain) RF: 0 cholecalciferol (vitamin D3) [Vitamin D3] 2,000 unit Capsule 2,000 unit PO QAM RF: 0 guaifenesin 400 mg Tablet 400 mg PO Q8H PRN (Reason: Cough) RF: 0 melatonin 5 mg Tablet 5 mg PO HS PRN (Reason: Sleep) RF: 0 magnesium hydroxide [Milk of Magnesia] 400 mg/5 mL Suspension 30 ml PO Q48H PRN (Reason: Constipation) RF: 0 bisacodyl [Dulcolax (bisacodyl)] 10 mg Suppository 10 mg NE Q48H PRN (Reason: Constipation) RF: 0 ipratropium-albuterol 0.5 mg-3 mg(2.5 mg base)/3 mL Solution For Nebulization 3 ml INHALATION Q8H RF: 0 insulin glargine [Lantus U-100 Insulin] 100 unit/mL Solution 40 unit SUBCUT BID RF: 0 albuterol sulfate 90 mcg/actuation Aerosol Powdr Breath Activated 2 inh INHALATION Q4H PRN (Reason: Shortness Of Breath) RF: 0 diphenhydramine HCl [Benadryl] 25 mg Capsule 50 mg PO HS PRN (Reason: Allergy Symptoms) RF: 0 loperamide 2 mg Capsule 2 mg PO Q3H MDD 16MG RF: 0 Stand-Alone Forms: [facility] Discharge Orders: Discharge Order (Routine); Ordered 06/22/18 Ordered By: Rasta Oropeza Admission Data Admit Date/Time: 06/19/18 23:01 Attending Provider: Rasta Oropeza Admit Provider: Juan Juares Primary Care Provider: Dae Duque Other Providers: Juan Juares ; Megan Bhatia. Service: Surgical Services Other Interventions: Discharge Summary Assessment (RN) Last Done: 06/22/18 11:30 DC Date/Time DO NOT enter until pt leaves facility: 06/22/18 13:47
== END 2018-06-22 13:47 | disposition home or self-care (01) ==
LOC: ED 16:49 → 3N 23:01 → SUATTDRO 23:01 → 3N 06-20 00:30